=== PATIENT | male | born 1955 | race Caucasian/White ===

== ENCOUNTER 2017-05-21 13:45 | Inpatient (IN) ==
[2017-05-21 14:18] LABS: Basophils # 0.1 K/mcL (0.0-0.2); Basophils % 0.4 %; Eosinophils # 0.2 K/mcL (0.0-0.6); Eosinophils % 1.2 %; Hematocrit 51.3 % (37.5-50.1); Hemoglobin 17.1 g/dL (12.9-16.9); Immature Granulocytes % 0.7 % (0-4); Lymphocytes # 1.5 K/mcL (0.6-4.6); Lymphocytes % 10.8 %; Mean Corpuscular HGB Conc 33.3 g/dL (31.6-35.5); Mean Corpuscular Hemoglobin 29.9 pg (28.0-33.3); Mean Corpuscular Volume 89.7 fL (83.0-100.0); Mean Platelet Volume 10.1 fL (9.4-12.4); Monocytes # 0.9 K/mcL (0.0-1.3); Monocytes % 6.7 %; Platelet Count 302 K/mcL (140-400); Red Blood Count 5.72 M/mcL (4.19-5.50); Red Cell Distribution Width 12.5 % (11.5-14.5); Segmented Neutrophils % 80.2 %
[2017-05-21] MEDS ORDERED: 0.9 % Sodium Chloride 1,000 ML IVC ONE (14:26)
[2017-05-21] MEDS ORDERED: *HR* FentaNYL (PF) 100 MCG/2 ML VIAL IVP ONE ×2 (14:27→15:53)
--- NOTE | 2017-05-21 14:29 | Emergency Department Note ---
Disposition Clinical Impression: Colitis, New onset a-fib GI bleed Qualifiers: GI bleed type/associated pathology: unspecified gastrointestinal hemorrhage type Qualified Code(s): K92.2 - Gastrointestinal hemorrhage, unspecified Disposition: Admitted As Inpatient Condition: Good Time of Disposition: 17:29 General Adult HPI - General Chief complaint: ED GI Bleed Stated complaint: Rectal Bleeding, abd pain Time Seen by Provider: 05/21/17 14:00 Source: patient Mode of arrival: ambulatory Limitations: no limitations Nursing Notes Reviewed: Yes Vital Signs Reviewed: Yes - History of Present Illness HPI Narrative: 62-year-old male with significant past medical history of COPD presenting to the emergency Department chief complaint of blood per rectum. Patient states he had severe abdominal pain today. He went to try to use the restroom and linnea blood came from his rectum. He denies clots. He denies any leaking of blood. He states this has happened once before and was diagnosed with colitis. He is not sure if he had a colonoscopy then. Patient denies any chest pain, dizziness, shortness of breath or headache. Pain Scale: 10 - Related Data Home Medications Medication Instructions Recorded Confirmed Albuterol Sulfate [Ventolin Hfa] 2 puff IH Q4H PRN 07/10/16 05/21/17 Calcium Carbonate [Calcium] 600 mg PO DAILY 07/10/16 05/21/17 Carbidopa/Levodopa 1 tab PO HS 07/10/16 05/21/17 [Carbidopa-Levodopa 10-100 Tab] Cinnamon Bark [Cinnamon] 500 mg PO DAILY 07/10/16 05/21/17 Cyclobenzaprine HCl 5 mg PO TID PRN 07/10/16 05/21/17 DiphenhydraMINE [Benadryl] 25 mg PO Q8HR PRN 07/10/16 05/21/17 Fexofenadine HCl [Allergy Relief] 180 mg PO DAILY 07/10/16 05/21/17 Fluticasone Propionate Nasal 1 spr NS BID 07/10/16 05/21/17 [Flonase] Furosemide [Lasix] 20 mg PO DAILY 07/10/16 05/21/17 Garcinia Cambogia-Chromium 1 cap PO DAILY 07/10/16 05/21/17 Guaifenesin [Mucinex] 600 mg PO Q12H 07/10/16 05/21/17 Ipratropium/Albuterol Neb [Duoneb] 3 ml IH QID PRN 07/10/16 05/21/17 Lisinopril [Zestril] 40 mg PO DAILY 07/10/16 05/21/17 Omeprazole [PriLOSEC] 20 mg PO DAILY 07/10/16 05/21/17 Potassium Chloride [Klor-Con 10] 10 meq PO DAILY 07/10/16 05/21/17 Pravastatin Sodium [Pravachol] 40 mg PO HS 07/10/16 05/21/17 Theophylline Anhydrous [Theodur] 300 mg PO BID 07/10/16 05/21/17 Vitamin E (Dl,Tocopheryl Acet) 400 unit PO DAILY 07/10/16 05/21/17 [Vitamin E] traZODone [TraZODone] 50 - 100 mg PO HS PRN 07/10/16 05/21/17 Acetaminophen [Tylenol Arthritis] 1,300 mg PO Q8H PRN 05/21/17 05/21/17 Aspirin Enteric Coated [Aspirin EC] 81 mg PO DAILY 05/21/17 05/21/17 Fluticasone/Salmeterol [Advair 1 each IH BID 05/21/17 05/21/17 500-50 Diskus] Allergies Allergy/AdvReac Type Severity Reaction Status Date / Time Penicillins Allergy SWELLING Verified 07/10/16 07:23 All systems ED: reviewed and negative except as stated. Gastrointestinal: Reports: abdominal pain, hematochezia Past Medical History - Past Medical History Attestation: Yes The following information was validated with the patient. Medical history: Reports: asthma, COPD, coronary artery disease, diabetes, hypertension, other Surgical history: Reports: appendectomy, coronary bypass (CABG) Psychiatric history: Reports: no psych history - Social History Smoking Status: Never smoker Smokeless Tobacco Status: No Alcohol use: Reports: none Drug use: Reports: none Physical Exam - General Limitations: no limitations General appearance: alert, in no apparent distress - Head Head exam: atraumatic, normocephalic, normal inspection - Eye Eye exam: Present: normal appearance. Absent: scleral icterus, conjunctival injection - ENT ENT exam: normal exam, mucous membranes moist - Neck Neck exam: Present: normal inspection, full ROM. Absent: tenderness, meningismus - Chest Chest inspection: Present: normal inspection, symmetric chest wall rise. Absent : tenderness, rash - Respiratory Respiratory exam: Present: normal lung sounds bilaterally. Absent: respiratory distress, wheezes - Cardiovascular Cardiovascular exam: Present: normal rhythm, tachycardia, normal heart sounds - Abdominal Exam Abdominal exam: Present: tenderness, distention. Absent: guarding, rebound, rigidity Abdominal tenderness: Present: diffuse, moderate - Rectal Exam Wharf [employer] present during exam: Yes Rectal exam: Present: normal inspection, normal rectal tone, heme (+) stool - Extremities Exam Extremities exam: Present: normal inspection, full ROM - Neurological Exam Neurological exam: Present: alert, oriented X3 - Psychiatric Psychiatric exam: Present: normal affect, normal mood - Skin Skin exam: Present: warm, intact Course Course Narrative: 62-year-old male presenting to the emergency she complaint of blood per rectum. Patient is alert and oriented 3 in the room. Tachycardic but vital signs otherwise stable. Patient's physical exam shows mild distention of the abdomen. No surgical abdomen on exam. We will obtain type and screen, CBC, CMP , lipase along with CT of abdomen and pelvis. Disposition pending results. We will also perform bedside stool call. Patient agrees with this plan. - Reevaluation(s) Reevaluation #1: Patient's laboratory analysis shows elevated white blood cell count. Outside stool occult positive for blood. No linnea blood per rectum on examination. Patient's CT shows colitis. We will plan to admit the patient at this time for colitis and blood rectum. EKG completed showed atrial fibrillation. Patient has no history of atrial fibrillation. His rate is approximately 100 at this time. We will start diltiazem drip as well. Patient is alert and oriented 3 in the room. Tachycardic but otherwise vital signs stable. Patient agrees with this plan. I spoke with the hospitalist on-call Dr. Gill who agrees to accept the patient at this time. Vital Signs Temperature 97.8 F 05/21/17 13:49 Pulse Rate 105 05/21/17 13:49 Respiratory Rate 16 05/21/17 13:49 Blood Pressure 149/95 05/21/17 13:49 O2 Sat by Pulse Oximetry 97 05/21/17 13:49 Temperature 98.0 F 05/23/17 03:00 Pulse Rate 91 05/23/17 03:00 Respiratory Rate 16 05/23/17 03:00 Blood Pressure 120/75 05/23/17 03:00 O2 Sat by Pulse Oximetry 99 05/23/17 03:00 Oxygen Delivery Oxygen Delivery Room Air Medical Decision Making - Medical Records Medical records reviewed: Yes I reviewed the patient's medical records. - Lab Data Lab results reviewed: Yes I reviewed the patient's lab results. Result diagrams: 05/22/17 02:26 05/22/17 02:26 Lab Results 05/21/17 05/21/17 05/21/17 Range/Units 14:11 14:11 14:11 WBC 13.7 H (4.3-11.1) K/mcL RBC 5.72 H (4.19-5.50) M/mcL Hgb 17.1 H (12.9-16.9) g/dL Hct 51.3 H (37.5-50.1) % MCV 89.7 (83.0-100.0) fL MCH 29.9 (28.0-33.3) pg MCHC 33.3 (31.6-35.5) g/dL RDW 12.5 (11.5-14.5) % Plt Count 302 (140-400) K/mcL MPV 10.1 (9.4-12.4) fL Immature Gran % 0.7 (0-4) % Seg Neutrophils % 80.2 % Lymphocytes % 10.8 % Monocytes % 6.7 % Eosinophils % 1.2 % Basophils % 0.4 % Neutrophils # 11.0 H (1.6-8.9) K/mcL Lymphocytes # 1.5 (0.6-4.6) K/mcL Monocytes # 0.9 (0.0-1.3) K/mcL Eosinophils # 0.2 (0.0-0.6) K/mcL Basophils # 0.1 (0.0-0.2) K/mcL Sodium 135 L (136-145) mEq/L Potassium 4.4 (3.5-5.1) mEq/L Chloride 96 L (98-107) mEq/L Carbon Dioxide 26 (23-29) mEq/L BUN 16 (8-23) mg/dL Creatinine 0.90 (0.70-1.30) mg/dL Est GFR ( Amer) > 60 (> 60) Est GFR (Non-Af Amer) > 60 (> 60) BUN/Creatinine Ratio 18 (6-26) Glucose 421 H (70-105) mg/dL POC Glucose (58-89) Est Mean Plasma Glucose mg/dl Hemoglobin A1c ( - 5.6) % Calculated Osmolality 299 (280-300) Calcium 10.1 (8.6-10.3) mg/dL Troponin I < 0.03 (< 0.04) ng/mL Blood Type B POSITIVE Antibody Screen NEGATIVE 05/21/17 05/21/17 05/21/17 Range/Units 20:08 20:08 20:16 WBC (4.3-11.1) K/mcL RBC (4.19-5.50) M/mcL Hgb (12.9-16.9) g/dL Hct (37.5-50.1) % MCV (83.0-100.0) fL MCH (28.0-33.3) pg MCHC (31.6-35.5) g/dL RDW (11.5-14.5) % Plt Count (140-400) K/mcL MPV (9.4-12.4) fL Immature Gran % (0-4) % Seg Neutrophils % % Lymphocytes % % Monocytes % % Eosinophils % % Basophils % % Neutrophils # (1.6-8.9) K/mcL Lymphocytes # (0.6-4.6) K/mcL Monocytes # (0.0-1.3) K/mcL Eosinophils # (0.0-0.6) K/mcL Basophils # (0.0-0.2) K/mcL Sodium (136-145) mEq/L Potassium (3.5-5.1) mEq/L Chloride (98-107) mEq/L Carbon Dioxide (23-29) mEq/L BUN (8-23) mg/dL Creatinine (0.70-1.30) mg/dL Est GFR ( Amer) (> 60) Est GFR (Non-Af Amer) (> 60) BUN/Creatinine Ratio (6-26) Glucose (70-105) mg/dL POC Glucose 331 H (58-89) Est Mean Plasma Glucose 258 mg/dl Hemoglobin A1c 10.6 H ( - 5.6) % Calculated Osmolality (280-300) Calcium (8.6-10.3) mg/dL Troponin I < 0.03 (< 0.04) ng/mL Blood Type Antibody Screen 05/22/17 Range/Units 00:05 WBC (4.3-11.1) K/mcL RBC (4.19-5.50) M/mcL Hgb (12.9-16.9) g/dL Hct (37.5-50.1) % MCV (83.0-100.0) fL MCH (28.0-33.3) pg MCHC (31.6-35.5) g/dL RDW (11.5-14.5) % Plt Count (140-400) K/mcL MPV (9.4-12.4) fL Immature Gran % (0-4) % Seg Neutrophils % % Lymphocytes % % Monocytes % % Eosinophils % % Basophils % % Neutrophils # (1.6-8.9) K/mcL Lymphocytes # (0.6-4.6) K/mcL Monocytes # (0.0-1.3) K/mcL Eosinophils # (0.0-0.6) K/mcL Basophils # (0.0-0.2) K/mcL Sodium (136-145) mEq/L Potassium (3.5-5.1) mEq/L Chloride (98-107) mEq/L Carbon Dioxide (23-29) mEq/L BUN (8-23) mg/dL Creatinine (0.70-1.30) mg/dL Est GFR ( Amer) (> 60) Est GFR (Non-Af Amer) (> 60) BUN/Creatinine Ratio (6-26) Glucose (70-105) mg/dL POC Glucose 262 H (58-89) Est Mean Plasma Glucose mg/dl Hemoglobin A1c ( - 5.6) % Calculated Osmolality (280-300) Calcium (8.6-10.3) mg/dL Troponin I (< 0.04) ng/mL Blood Type Antibody Screen - Radiology Data Radiology results reviewed: Yes I reviewed the patient's radiology results. Abdomen/Pelvis CT 05/21/17 14:27 IMPRESSION: Probable nonspecific acute colitis on the left. Other incidental findings as above. D/ / Luis Lewis MD / Luis Lewis MD Interpreting Provider: Luis Lewis MD Echocardiogram 05/22/17 19:33 Impressions: LVEF 60-65%. Normal LV chamber size, wall thickness and function. Indeterminate diastolic function. Normal right ventricular structure and function. Severely dilated left atrium. No evidence of pulmonary hypertension. No significant valvular dysfunction. Left Ventricular Wall Motion: Rest Echo Findings All wall segments showed normal motion. Findings: Study Quality * Technically adequate exam. ECG Findings * Rhythm appeared to be atrial fibrillation. Left Ventricle * LVEF 60-65%. * Normal LV chamber size, wall thickness and function. * Indeterminate diastolic function. Right Ventricle * Normal right ventricular structure and function. Left Atrium * Severely dilated left atrium. Right Atrium * Moderate to severely dilated right atrium. Interatrial Septum * Interatrial septum not well evaluated. Aortic Valve * Aortic valve not well visualized. * No aortic stenosis. * No aortic regurgitation. Mitral Valve * Normal mitral valve structure and function. * No mitral regurgitation. * No mitral stenosis. Tricuspid Valve * Normal tricuspid valve structure and function. * Trace tricuspid regurgitation. * No evidence of pulmonary hypertension. Pulmonic Valve * Pulmonic valve is not well visualized. * No pulmonic regurgitation. Aorta * Normally sized aortic root. Pericardium * The pericardium appears normal. IVC * The IVC is not well evaluated. Pulmonary Artery * Normal visualized portions of the main pulmonary artery. - EKG Data EKG #1 EKG attestation: Yes I reviewed and interpreted this EKG. EKG results narrative: Atrial fibrillation. 110 bpm. QRS 107, QTC 416. No signs of acute ST segment elevation or ischemia. Compared to previous EKG completed on 07/11/2016 new onset A. fib EKG #2 EKG attestation: Yes I reviewed and interpreted this EKG. EKG results narrative: Atrial fibrillation. 100 bpm. Incomplete right bundle branch block. QRS 114, QTC 432. No signs of acute ST segment elevation or ischemia. Attestation Statement - Attestation Attestation: I examined this patient and my medical decision-making was reviewed with the Resident Physician, Dr. Mccracken. I agree with the documented findings, disposition and treatment plan as described except to the extent set forth below. Patient is a 62-year-old white male who presents to the emergency department with a two-day history of gradually worsening generalized lower abdominal pain and bright red blood per rectum. Patient states he has no prior history of GI bleeding, no condition that he sees GI regularly for but states that years ago he had an episode of colitis which caused some bright red blood per rectum at that time and has not had a recurrence since that time. Patient denies any fevers or chills, no nausea vomiting, does complain of some abdominal bloating and occasional loose stools. Patient's denies any chest pain pressure or heaviness, no palpitations, no shortness of breath, no syncope or near syncopal episodes. Patient denies any cardiac history or pulmonary history. Patient is in no acute distress on arrival. I agree with patient's physical exam findings as documented. Patient tachycardic but stable blood pressure on arrival. Patient was placed on cardiac care unit nurse and continuous pulse ox and IV saline well was established and IV fluids were initiated. Labs were drawn and sent including type and screen, EKG was obtained which showed atrial fibrillation with RVR with a heart rate in the 1 teens. Cardiac labs were added and we will continue to monitor closely with hydration. Patient received IV fluid boluses. Hemoccult was positive with no gross blood below. Patient's H&H is stable, BUN/ creatinine are stable. Remainder of labs are unremarkable. CT does show the presence of colitis likely causing the rectal bleeding. Patient's hemodynamically stable otherwise. Repeat EKG shows persistent atrial fibrillation. We held aspirin due to GI bleeding did start patient on Cardizem drip. Troponin is negative. Patient rate controlled on Cardizem and remains hemodynamically stable. Patient will be admitted for further evaluation and management of colitis as well as new onset A. fib. Case was discussed with the hospitalist who accepted patient for admission.
[2017-05-21 14:39] LABS: BUN/Creatinine Ratio 18 (6-26); Blood Urea Nitrogen 16 mg/dL (8-23); Calcium 10.1 mg/dL (8.6-10.3); Carbon Dioxide 26 mEq/L (23-29); Chloride 96 mEq/L (98-107); Glucose 421 mg/dL (70-105); Osmolality,Calculated 299 (280-300); Potassium 4.4 mEq/L (3.5-5.1); Sodium 135 mEq/L (136-145); eGFR For African Americans > 60 (> 60); eGFR For Non-African Americans > 60 (> 60)
[2017-05-21 15:03] LABS: Troponin I < 0.03 ng/mL (< 0.04)
[2017-05-21] MEDS ORDERED: Dicyclomine 20 MG/2 ML AMPUL IM ONE (17:10)
[2017-05-21] MEDS ORDERED: Acetaminophen 325 MG TABLET PO PRN (19:27)
[2017-05-21] MEDS ORDERED: Naloxone 0.4 MG/ML INJ IVP PRN (19:27)
[2017-05-21] MEDS ORDERED: D5% in Water 1,000 ML IVC PRN (19:32)
[2017-05-21] MEDS ORDERED: Dextrose Gel 15 GM/37.5 ML TUBE PO PRN ×2 (19:32)
[2017-05-21] MEDS ORDERED: *HR* Dextrose 50 % in Water (Syg) 50 ML SYRINGE IVP PRN (19:32)
[2017-05-21] MEDS ORDERED: traZODone 50 MG TABLET PO PRN (19:36)
[2017-05-21] MEDS ORDERED: Ipratropium/Albuterol Neb 3 ML IH PRN (19:36)
--- NOTE | 2017-05-21 19:40 | Internal Med History&Physical ---
Date of Encounter: 05/21/17 Time of Encounter: 19:00 Assessment and Plan (1) Colitis Current visit: Yes Status: Acute CT abdomen/pelvis shows nonspecific acute colitis on the left. Start IV antibiotics-ciprofloxacin and Flagyl. IV hydration. Supportive care with when necessary pain control with IV fentanyl and oral Percocet. When necessary antiemetics. Keep nothing by mouth for now. Requires outpatient colonoscopy. (2) GI bleed Current visit: Yes Status: Acute Probably related to colitis. No active bleeding at this time. Avoid anticoagulation.Monitor Hb closely; Qualifiers: GI bleed type/associated pathology: unspecified gastrointestinal hemorrhage type Qualified Code(s): K92.2 - Gastrointestinal hemorrhage, unspecified (3) New onset a-fib Current visit: Yes Status: Acute EKG shows atrial fibrillation with RVR; started on IV Cardizem drip, plan to wean off IV drip if HR<110; continue telemetry monitoring, serial troponins. Check transthoracic echocardiogram. Avoid anticoagulation for now due to GI bleed. Cardiology consult. (4) COPD (chronic obstructive pulmonary disease) Current visit: Yes Status: Chronic Not in acute exacerbation. Continue when necessary bronchodilators nebulization and supplemental oxygen as needed. Continue inhaled corticosteroids. Qualifiers: COPD type: unspecified COPD Qualified Code(s): J44.9 - Chronic obstructive pulmonary disease, unspecified (5) Obstructive sleep apnea Current visit: Yes Status: Chronic Continue nocturnal CPAP support. (6) Diabetes mellitus Current visit: Yes Status: Chronic Reports that he has borderline diabetes, not on medications at home. Noted to have hypoglycemia. Start Accu-Chek blood glucose monitoring with sliding scale insulin. Check hemoglobin A1c. Qualifiers: Diabetes mellitus type: type 2 Diabetes mellitus jail insulin use: without jail use Diabetes mellitus complication status: with hyperglycemia Qualified Code(s): E11.65 - Type 2 diabetes mellitus with hyperglycemia (7) Essential hypertension Current visit: Yes Status: Chronic Blood pressure noted to be slightly elevated. Resume home medications- lisinopril. Internal Medicine - H&P: HPI Chief complaint: Abdominal pain, rectal bleeding Admitted From: Emergency Dept Plans for Post Hospital Care: Home History of present illness: Mr. Lamb is a 62 year old male with history of COPD, diabetes, obstructive sleep apnea, who presents with complaints of rectal bleeding. Patient reports a new sudden onset of bright red bleeding per rectum associated with cramping abdominal pain since around 10 AM this morning. Abdominal pain is constant, no aggravating or relieving factors, nonradiating. Not associated with fever, chills, nausea, vomiting. He had 3-4 episodes of bright red bleeding per rectum , not associated with bowel movements. No history of hemorrhoids or colonoscopy in the past. He reports a similar episode of bleeding a few years ago, when he was diagnosed with colitis. Patient was noted to have new onset of atrial fibrillation while in the emergency room. Denies chest pain, palpitations, shortness of breath. Past Med Surg Social Fam HX - Past Medical History Medical history: asthma, COPD, diabetes, hypertension, other Psychiatric history: no psych history - Past Surgical History Surgical History: appendectomy, orthopedic, other (Right femoral fracture repair ) - Social History Smoking Status: Never smoker Smokeless Tobacco Status: No Alcohol use: none Drug use: none Current living situation: Home, With Family Activity Level: Independent ambulation Recent Out of Country Travel Within the Last 8 Weeks: No Exposure or Possible Exposure to Illness During Travel: No - Family History Father Living Status: Hx Family Neurologic Disorders: Yes (aneurysin) Internal Medicine - H&P: Meds Albuterol Sulfate [Ventolin Hfa] 2 puff IH Q4H PRN 07/10/16 [History] Calcium Carbonate [Calcium] 600 mg PO DAILY 07/10/16 [History] Carbidopa/Levodopa [Carbidopa-Levodopa 10-100 Tab] 1 tab PO HS 07/10/16 [History ] Cinnamon Bark [Cinnamon] 500 mg PO DAILY 07/10/16 [History] Cyclobenzaprine HCl 5 mg PO TID PRN 07/10/16 [History] DiphenhydraMINE [Benadryl] 25 mg PO Q8HR PRN 07/10/16 [History] Fexofenadine HCl [Allergy Relief] 180 mg PO DAILY 07/10/16 [History] Fluticasone Propionate Nasal [Flonase] 1 spr NS BID 07/10/16 [History] Furosemide [Lasix] 20 mg PO DAILY 07/10/16 [History] Garcinia Cambogia-Chromium 1 cap PO DAILY 07/10/16 [History] Guaifenesin [Mucinex] 600 mg PO Q12H 07/10/16 [History] Ipratropium/Albuterol Neb [Duoneb] 3 ml IH QID PRN 07/10/16 [History] Lisinopril [Zestril] 40 mg PO DAILY 07/10/16 [History] Omeprazole [PriLOSEC] 20 mg PO DAILY 07/10/16 [History] Potassium Chloride [Klor-Con 10] 10 meq PO DAILY 07/10/16 [History] Pravastatin Sodium [Pravachol] 40 mg PO HS 07/10/16 [History] Theophylline Anhydrous [Theodur] 300 mg PO BID 07/10/16 [History] Vitamin E (Dl,Tocopheryl Acet) [Vitamin E] 400 unit PO DAILY 07/10/16 [History] traZODone [TraZODone] 50 - 100 mg PO HS PRN 07/10/16 [History] Acetaminophen [Tylenol Arthritis] 1,300 mg PO Q8H PRN 05/21/17 [History] Aspirin Enteric Coated [Aspirin EC] 81 mg PO DAILY 05/21/17 [History] Fluticasone/Salmeterol [Advair 500-50 Diskus] 1 each IH BID 05/21/17 [History] 3 Allergy/AdvReac Type Severity Reaction Status Date / Time Penicillins Allergy SWELLING Verified 07/10/16 07:23 All Systems PM: A 10-system review of systems was performed and is negative for pertinent findings except as documented above in the HPI. - Constitutional Constitutional: no chills, no fever(s), no night sweats - EENT Eyes: no change in vision, no discharge, no pain, no photophobia Ears: no ear discharge, no ear pain, no tinnitus Nose, mouth and throat: no dysphagia, no nasal discharge, no neck pain, no sore throat - Cardiovascular Cardiovascular ROS IM: no chest pain, no diaphoresis, no dyspnea, no lightheadedness, no palpitations, no syncope - Respiratory Respiratory: no cough, no dyspnea, no wheezing, no excessive phlegm production - Gastrointestinal Gastrointestinal: abdominal pain, hematochezia - Musculoskeletal Musculoskeletal ROS IM: no numbness, no tingling - Integumentary Integumentary IM: no rash, no unusual bruising - Neurological Neurological ROS: no confusion, no convulsions, no focal weakness, no numbness, no tingling, no tremor(s) - Hematologic/Lymphatic Hematologic/Lymphatic: no easy bruising - Constitutional Vitals: Temp Pulse Resp BP Pulse Ox 97.9 F 104 18 163/91 95 05/21/17 19:16 05/21/17 19:16 05/21/17 19:16 05/21/17 19:16 05/21/17 19:16 General appearance: Present: mild distress (Due to abdominal pain), A&O X 3, morbidly obese, answers questions appropriately - Respiratory Respiratory exam: Present: CTAB (Coarse breath sounds bilaterally), wheezes ( Intermittent end expiratory wheezing). Absent: accessory muscle use, rales, rhonchi - GI/Abdominal GI/Abdominal exam: Present: normal bowel sounds, soft (Obese, diffuse tenderness to deep palpation, more pronounced in left and right lower quadrants) , no peritoneal signs. Absent: distended, tenderness - Extremities Exam Extremities exam: Present: full ROM, pedal edema (Trace dependent), warm, radial pulses palpable and symmetrical. Absent: calf tenderness, cyanotic - Neurological Exam Neurological exam: Present: CN II-XII intact, oriented X3, no focal deficits. Absent: pronater drift, facial droop, speech deficit - Skin Skin exam: Present: dry, intact Internal Med - H&P Results - Labs CBC & Chem 7: 05/21/17 14:11 05/21/17 14:11
[2017-05-21] MEDS ORDERED: 0.9 % Sodium Chloride 1,000 ML IVC SCH (19:45)
[2017-05-21] MEDS: *HR* HYDROcodone/Acet 5/325 mg TABLET PO PRN (19:56)
[2017-05-21] MEDS: Budesonide/Formoterol 160/4.5 MDI IH SCH (20:19)
[2017-05-21] MEDS: Insulin LISPRO 300 UNITS/3 ML VIAL SQ SCH (21:58)
[2017-05-22] MEDS ORDERED: Insulin LISPRO 300 UNITS/3 ML VIAL SQ SCH
[2017-05-22] MEDS: MetroNIDAZOLE 500 MG/100 ML 500 MG/100 ML BAG IVPB SCH ×4 (00:39→23:52)
[2017-05-22] MEDS ORDERED: Acetaminophen IV 1,000 MG/100 ML INFUS..BTL IVPB ONE (00:57)
[2017-05-22] MEDS: *HR* HYDROcodone/Acet 5/325 mg TABLET PO PRN ×2 (01:51→08:10)
[2017-05-22] MEDS ORDERED: *HR* OxyCODONE Immed Rel 5 MG TABLET PO ONE (02:39)
[2017-05-22 03:39] LABS: Basophils # 0.1 K/mcL (0.0-0.2); Basophils % 0.5 %; Eosinophils # 0.2 K/mcL (0.0-0.6); Eosinophils % 1.3 %; Hematocrit 45.8 % (37.5-50.1); Hemoglobin 15.6 g/dL (12.9-16.9); Immature Granulocytes % 0.5 % (0-4); Immature Platelets 3.9 % (1.1-6.1); Lymphocytes # 1.4 K/mcL (0.6-4.6); Lymphocytes % 9.2 %; Mean Corpuscular HGB Conc 34.1 g/dL (31.6-35.5); Mean Corpuscular Hemoglobin 29.8 pg (28.0-33.3); Mean Corpuscular Volume 87.4 fL (83.0-100.0); Mean Platelet Volume 10.2 fL (9.4-12.4); Monocytes # 1.6 K/mcL (0.0-1.3); Monocytes % 10.3 %; Neutrophils # 11.8 K/mcL (1.6-8.9); Platelet Count 288 K/mcL (140-400); Red Blood Count 5.24 M/mcL (4.19-5.50); Red Cell Distribution Width 12.8 % (11.5-14.5); Segmented Neutrophils % 78.2 %
[2017-05-22 03:47] LABS: BUN/Creatinine Ratio 18 (6-26); Blood Urea Nitrogen 12 mg/dL (8-23); Calcium 9.4 mg/dL (8.6-10.3); Carbon Dioxide 25 mEq/L (23-29); Chloride 101 mEq/L (98-107); Glucose 226 mg/dL (70-105); Magnesium 1.7 mg/dL (1.6-2.6); Osmolality,Calculated 289 (280-300); Potassium 3.5 mEq/L (3.5-5.1); Sodium 136 mEq/L (136-145); eGFR For African Americans > 60 (> 60); eGFR For Non-African Americans > 60 (> 60)
[2017-05-22] MEDS: Insulin LISPRO 300 UNITS/3 ML VIAL SQ SCH ×3 (05:34→17:57)
[2017-05-22] MEDS: Loratadine 10 MG TABLET PO SCH (08:09)
[2017-05-22] MEDS: Lisinopril 20 MG TABLET PO SCH (08:10)
[2017-05-22] MEDS: Budesonide/Formoterol 160/4.5 MDI IH SCH ×2 (08:10→20:36)
--- NOTE | 2017-05-22 09:48 | Cardiology Consult Note ---
<Melissa Pandey - Last Filed: 05/22/17 11:31> Date of Encounter: 05/22/17 Time of Encounter: 09:15 Assessment and Plan (1) New onset a-fib Current Visit: Yes Status: Acute New A.fib. No other cardiac history. He reported a normal stress test 20yr ago. EKG: A.fib, HR 106 troponin 0.03, 0.03, 0.03, 0.04 Denies chest pain. -Echo pending, continue cardizem IV, order BNP, no anticoagulation at this time (2) Colitis Current Visit: Yes Status: Acute Currently being treated for acute left sided colitis with Cipro and flagyl. 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 All questions were answered. Thank you for involving us in the care of your patient. Please call with any questions. History of Present Illness Consult date: 05/22/17 Requesting physician: Stacy Gill Consult reason: new A.fib with RVR Chief complaint: abdominal pain, rectal bleeding History of present illness: Mr. Lamb is a 62 year old male with PMH COPD, diabetes, obstructive sleep apnea, HTN, HLD who presented to [facility] complaining of abdominal cramping and blood per rectum for 1 day. He had 3-4 episodes of blood in rectum. Nothing aggravates or alleviates the abdominal pain. He had this one other time and was told he had colitis. He had a normal stress test 20yr ago. In ED abdominal CT demonstrated left sided acute colitis. He was also found to be in A.fib. He was started on IV antibiotics and cardizem. He denied fever, chills, chest pain, palpitations, shortness of breathe. He admitted abdominal pain, orthopnea, PND, lower extremity swelling. Past Med Surg Social Fam HX - Past Medical History Medical history: asthma, COPD, diabetes, hypertension, other Psychiatric history: no psych history - Past Surgical History Surgical History: appendectomy, orthopedic, other (Right femoral fracture repair ) - Social History Smoking Status: Never smoker Smokeless Tobacco Status: No Alcohol use: none Drug use: none - Family History Father Living Status: Hx Family Neurologic Disorders: Yes (aneurysin) Medications and Allergies Albuterol Sulfate [Ventolin Hfa] 2 puff IH Q4H PRN 07/10/16 [History] Calcium Carbonate [Calcium] 600 mg PO DAILY 07/10/16 [History] Carbidopa/Levodopa [Carbidopa-Levodopa 10-100 Tab] 1 tab PO HS 07/10/16 [History ] Cinnamon Bark [Cinnamon] 500 mg PO DAILY 07/10/16 [History] Cyclobenzaprine HCl 5 mg PO TID PRN 07/10/16 [History] DiphenhydraMINE [Benadryl] 25 mg PO Q8HR PRN 07/10/16 [History] Fexofenadine HCl [Allergy Relief] 180 mg PO DAILY 07/10/16 [History] Fluticasone Propionate Nasal [Flonase] 1 spr NS BID 07/10/16 [History] Furosemide [Lasix] 20 mg PO DAILY 07/10/16 [History] Garcinia Cambogia-Chromium 1 cap PO DAILY 07/10/16 [History] Guaifenesin [Mucinex] 600 mg PO Q12H 07/10/16 [History] Ipratropium/Albuterol Neb [Duoneb] 3 ml IH QID PRN 07/10/16 [History] Lisinopril [Zestril] 40 mg PO DAILY 07/10/16 [History] Omeprazole [PriLOSEC] 20 mg PO DAILY 07/10/16 [History] Potassium Chloride [Klor-Con 10] 10 meq PO DAILY 07/10/16 [History] Pravastatin Sodium [Pravachol] 40 mg PO HS 07/10/16 [History] Theophylline Anhydrous [Theodur] 300 mg PO BID 07/10/16 [History] Vitamin E (Dl,Tocopheryl Acet) [Vitamin E] 400 unit PO DAILY 07/10/16 [History] traZODone [TraZODone] 50 - 100 mg PO HS PRN 07/10/16 [History] Acetaminophen [Tylenol Arthritis] 1,300 mg PO Q8H PRN 05/21/17 [History] Aspirin Enteric Coated [Aspirin EC] 81 mg PO DAILY 05/21/17 [History] Fluticasone/Salmeterol [Advair 500-50 Diskus] 1 each IH BID 05/21/17 [History] 3 Allergy/AdvReac Type Severity Reaction Status Date / Time Penicillins Allergy SWELLING Verified 07/10/16 07:23 All Systems Review: The remainder of the systems were reviewed and are negative - Constitutional Constitutional: no chills, no fever(s) - EENT Eyes: no blurred vision, no loss of vision - Cardiovascular Cardiovascular: dyspnea on exertion, leg edema, orthopnea, paroxysmal nocturnal dyspnea, no chest pain at rest, no chest pain with exertion, no palpitations, no syncope - Respiratory Respiratory: no cough, no dyspnea - Gastrointestinal Gastrointestinal: abdominal pain, hematochezia, no diarrhea, no nausea - Musculoskeletal Musculoskeletal: no abnormal gait - Integumentary Integumentary: no erythema - Neurological Neurological: no loss of vision, no syncope Physical Examination Vital Signs, Last 4 Hours Temp Pulse Resp BP Pulse Ox 05/22/17 08:21 98 05/22/17 08:11 16 144/80 98 05/22/17 06:42 98.4 F 100 16 144/80 98 General: Conversant, No Apparent Distress HEENT: Atraumatic, Mucus Membranes Moist Neck: No JVD Cardiac: No Murmur, Other (irregular ) Lungs: Normal Breath Sounds, No Wheeze, Rales, Rhonchi Neuro: Alert and responsive Abdomen: Soft, Non-Tender Musculoskeletal: No Chest Wall Tenderness Extremities: No Cyanosis, Other (edema) Results 05/22/17 02:26 05/22/17 02:26 Lab Results 05/22/17 05/22/17 05/22/17 02:26 02:26 02:26 WBC 15.1 H Hgb 15.6 D Hct 45.8 Plt Count 288 Sodium 136 Potassium 3.5 Chloride 101 Carbon Dioxide 25 BUN 12 Creatinine 0.65 L Glucose 226 H Calcium 9.4 Magnesium 1.7 Troponin I 0.03 05/22/17 08:46 WBC Hgb Hct Plt Count Sodium Potassium Chloride Carbon Dioxide BUN Creatinine Glucose Calcium Magnesium Troponin I 0.04 H* Consult Discharge Plan - Plan Referrals: Lula Miranda MD [Primary Care Provider] - <Ángela Calderón - Last Filed: 05/22/17 12:23> Date of Encounter: 05/22/17 - Attending Attestation I examined this patient and my medical decision-making was reviewed with the Resident Physician. I agree with the documented findings, disposition and treatment plan as described except to the extent set forth below. 62 YOM with hx of DM, HTN, HLP who presents with GI bleed and abdominal pain found to have Afib. Currently not a candidate for AC but should start when safe to reduce his risk of CVA. ECHO and NST are reasonable during this admission for SHD and to rule out ischemia. EKG borderline ST changes suggestive of ischemia along with trivial elevation in trops. IV heparin, ASA 81 mg daily when deemed safe by GI Assessment and Plan Discussion w patient/family: The assessment and plan as outlined above was discussed with the patient and/or family members who expressed understanding and agreement. All questions were answered. Thank you for involving us in the care of your patient. Please call with any questions. History of Present Illness History of present illness: Mr. Lamb is a 62 year old male All Systems Review: The remainder of the systems were reviewed and are negative Physical Examination Vital Signs, Last 4 Hours Temp Pulse Resp BP Pulse Ox 05/22/17 11:49 97.5 F L 67 16 121/80 98 05/22/17 08:21 98 Results 05/22/17 02:26 05/22/17 02:26 Lab Results 05/22/17 05/22/17 05/22/17 02:26 02:26 02:26 WBC 15.1 H Hgb 15.6 D Hct 45.8 Plt Count 288 Sodium 136 Potassium 3.5 Chloride 101 Carbon Dioxide 25 BUN 12 Creatinine 0.65 L Glucose 226 H Calcium 9.4 Magnesium 1.7 Troponin I 0.03 05/22/17 08:46 WBC Hgb Hct Plt Count Sodium Potassium Chloride Carbon Dioxide BUN Creatinine Glucose Calcium Magnesium Troponin I 0.04 H*
[2017-05-22 10:15] LABS: Estimated Average Glucose 258 mg/dl; Hemoglobin A1C 10.6 %
[2017-05-22] MEDS ORDERED: Ketorolac 30 MG/ML VIAL IVP SCH (12:00)
--- NOTE | 2017-05-22 13:23 | Event Note ---
Date of Encounter: 05/22/17 Time of Encounter: 13:20 - Cardiology Event Note Echo pending. Labs pending. HR currently in the 90's. Remains on IV Cardizem gtt. SBP stable. Will attempt to wean IV Cardizem gtt and will start short- acting Cardizem 30mg PO every 6 hrs.
[2017-05-22] MEDS: Ketorolac 30 MG/ML VIAL IVP PRN (17:50)
--- NOTE | 2017-05-22 18:14 | Internal Med Progress Note ---
Date of Encounter: 05/22/17 Time of Encounter: 11:00 - Assessment and plan (1) Colitis Current Visit: Yes Status: Acute Assessment and plan: Patient with continued abdominal discomfort with leukocytosis Abdominal CT shows nonspecific acute left colitis Continue IV Cipro/Flagyl (2) GI bleed Current Visit: Yes Status: Acute Assessment and plan: Hemoglobin stable; continue to monitor Qualifiers: GI bleed type/associated pathology: unspecified gastrointestinal hemorrhage type Qualified Code(s): K92.2 - Gastrointestinal hemorrhage, unspecified (3) New onset a-fib Current Visit: Yes Status: Acute Assessment and plan: -Cardiology following with recommendations to wean Cardizem -Echocardiogram with LVEF of 6065% with normal LV function. 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 Diabetes mellitus complication status: with hyperglycemia Qualified Code(s): E11.65 - Type 2 diabetes mellitus with hyperglycemia (6) Essential hypertension Current Visit: Yes Status: Chronic Assessment and plan: Controlled; continue home medications - Subjective Interval history: Patient continues to have abdominal pain Patient also with atrial fibrillation with RVR - Constitutional Vitals: Temp Pulse Resp BP Pulse Ox 99.1 F 88 18 105/64 96 05/22/17 15:48 05/22/17 15:48 05/22/17 15:48 05/22/17 15:48 05/22/17 15:48 General appearance: Present: mild distress (Due to abdominal pain), A&O X 3, morbidly obese, no acute distress, answers questions appropriately - Cardiovascular Cardiovascular exam: Present: irregular rhythm, +S1, +S2. Absent: diastolic murmur, gallop, rubs, systolic murmur - GI/Abdominal GI/Abdominal exam: Present: tenderness Internal Medicine: Result - Labs CBC & Chem 7: 05/22/17 02:26 05/22/17 02:26 Labs: Short CBC 05/22/17 Range/Units 02:26 WBC 15.1 H (4.3-11.1) K/mcL Hgb 15.6 D (12.9-16.9) g/dL Hct 45.8 (37.5-50.1) % Plt Count 288 (140-400) K/mcL Neutrophils # 11.8 H (1.6-8.9) K/mcL BMP 05/22/17 02:26 Sodium 136 Potassium 3.5 Chloride 101 Carbon Dioxide 25 BUN 12 Creatinine 0.65 L Glucose 226 H Calcium 9.4 Cardiac Enzymes 05/22/17 05/22/17 Range/Units 02:26 08:46 Troponin I 0.03 0.04 H* (< 0.04) ng/mL - Impressions Impressions Echocardiogram 05/22/17 19:33 Impressions: LVEF 60-65%. Normal LV chamber size, wall thickness and function. Indeterminate diastolic function. Normal right ventricular structure and function. Severely dilated left atrium. No evidence of pulmonary hypertension. No significant valvular dysfunction. Left Ventricular Wall Motion: Rest Echo Findings All wall segments showed normal motion. Findings: Study Quality * Technically adequate exam. ECG Findings * Rhythm appeared to be atrial fibrillation. Left Ventricle * LVEF 60-65%. * Normal LV chamber size, wall thickness and function. * Indeterminate diastolic function. Right Ventricle * Normal right ventricular structure and function. Left Atrium * Severely dilated left atrium. Right Atrium * Moderate to severely dilated right atrium. Interatrial Septum * Interatrial septum not well evaluated. Aortic Valve * Aortic valve not well visualized. * No aortic stenosis. * No aortic regurgitation. Mitral Valve * Normal mitral valve structure and function. * No mitral regurgitation. * No mitral stenosis. Tricuspid Valve * Normal tricuspid valve structure and function. * Trace tricuspid regurgitation. * No evidence of pulmonary hypertension. Pulmonic Valve * Pulmonic valve is not well visualized. * No pulmonic regurgitation. Aorta * Normally sized aortic root. Pericardium * The pericardium appears normal. IVC * The IVC is not well evaluated. Pulmonary Artery * Normal visualized portions of the main pulmonary artery. - VTE Documentation of Mechanical Device: Intermittent pneumatic compression device Consult Discharge Plan - Plan Referrals: Lula Miranda MD [Primary Care Provider] - 06/02/17 3:00 pm
[2017-05-23] MEDS: Insulin LISPRO 300 UNITS/3 ML VIAL SQ SCH ×5 (01:05→23:49)
[2017-05-23] MEDS: Ketorolac 30 MG/ML VIAL IVP PRN ×2 (05:39→21:47)
[2017-05-23] MEDS: Budesonide/Formoterol 160/4.5 MDI IH SCH ×2 (07:25→19:47)
[2017-05-23] MEDS: Lisinopril 20 MG TABLET PO SCH (08:50)
[2017-05-23] MEDS: Loratadine 10 MG TABLET PO SCH (08:51)
[2017-05-23] MEDS: MetroNIDAZOLE 500 MG/100 ML 500 MG/100 ML BAG IVPB SCH ×3 (08:51→23:48)
--- NOTE | 2017-05-23 08:58 | Cardiology Progress Note ---
Date of Encounter: 05/23/17 Time of Encounter: 08:55 Assessment and Plan (1) Colitis Current Visit: Yes Status: Acute Per Cardiology: CT: IMPRESSION: Probable nonspecific acute colitis on the left. Currently being treated for acute left sided colitis with Cipro and flagyl. (2) New onset a-fib Current Visit: Yes Status: Acute Per Cardiology: Apparent new onset atrial fibrillation. He reported a normal stress test 20yr ago. IV Cardizem drip now off and on Cardizem 30 mg by mouth every 6 hours with current heart rates in the 70s to 80s, atrial fibrillation. Systolic blood pressures in the 100s. We will switch to long-acting Cardizem CD 120 mg by mouth daily, we will decrease lisinopril from 40 mg by mouth daily down to 20 mg by mouth daily to allow for systolic blood pressure room. Continue with rate control strategy for now due to inability to be anticoagulated. Clinically stable. Echo showed: Impressions: LVEF 60-65%. Normal LV chamber size, wall thickness and function. Indeterminate diastolic function. Normal right ventricular structure and function. Severely dilated left atrium. No evidence of pulmonary hypertension. No significant valvular dysfunction. Left Ventricular Wall Motion: Rest Echo Findings All wall segments showed normal motion. Regarding long-term anticoagulation, [id number] = 2. Currently not on anticoagulation due to admission for rectal bleeding. Recommend GI consult. Hemoglobin stable. Patient reports was on aspirin at home. Patient aware of increased stroke risk while not anticoagulated. Recommend starting anticoagulation if able once seen by GI. (3) Elevated troponin I measurement Current Visit: Yes Status: Acute Per Cardiology: Negative troponins 3 and subsequent troponin mildly elevated at 0.04. Chest pain-free. Elevation in setting of A. fib, GI bleed, colitis. Suspect demand ischemia. No cardiac rehabilitation warranted at this time. BNP stable, has elevated A1c. Will discuss with Dr. Calderón potential stress testing during inpatient stay versus outpatient setting. Discussion w patient/family: The assessment and plan as outlined above was discussed with the patient who expressed understanding and agreement. All questions were answered. Thank you for involving us in the care of your patient. Please call with any questions. Subjective Principal diagnosis: afib Interval history: Patient denies any current bleeding or blood loss. Denies any current abdominal pain. He denies any chest pain. Reports mild shortness of breath at rest about baseline. Denies any new concerns or complaints. Objective Vital Signs, Last 4 Hours Temp Pulse Resp BP Pulse Ox 05/23/17 07:38 98.6 F 66 16 104/70 97 05/23/17 07:25 16 104/70 97 General: Conversant, No Apparent Distress HEENT: Atraumatic, Normocephaly, Mucus Membranes Moist Neck: No JVD, Normal carotid pulses Cardiac: No Murmur, Other (Irregularly irregular) Lungs: Normal Breath Sounds, No Wheeze, Rales, Rhonchi Neuro: Alert and responsive, No focal deficits noted Abdomen: Soft, Non-Tender, Other (obese) Skin: No rashes noted on visualized skin Musculoskeletal: No Chest Wall Tenderness Extremities: No Clubbing, No Cyanosis, No Edema, Normal Pulses Results 05/22/17 02:26 05/22/17 02:26 Lab Results Laboratory Tests 05/21/17 05/21/17 05/21/17 14:11 20:08 20:08 Hemoglobin A1c 10.6 H Troponin I < 0.03 < 0.03 B-Natriuretic Peptide 05/22/17 05/22/17 05/22/17 02:26 08:46 12:01 Hemoglobin A1c Troponin I 0.03 0.04 H* B-Natriuretic Peptide 36 ITS Impressions Abdomen/Pelvis CT 05/21/17 14:27 IMPRESSION: Probable nonspecific acute colitis on the left. Other incidental findings as above. D/ / Luis Lewis MD / Luis Lewis MD Interpreting Provider: Luis Lewis MD Echocardiogram 05/22/17 19:33 Impressions: LVEF 60-65%. Normal LV chamber size, wall thickness and function. Indeterminate diastolic function. Normal right ventricular structure and function. Severely dilated left atrium. No evidence of pulmonary hypertension. No significant valvular dysfunction. Left Ventricular Wall Motion: Rest Echo Findings All wall segments showed normal motion. Findings: Study Quality * Technically adequate exam. ECG Findings * Rhythm appeared to be atrial fibrillation. Left Ventricle * LVEF 60-65%. * Normal LV chamber size, wall thickness and function. * Indeterminate diastolic function. Right Ventricle * Normal right ventricular structure and function. Left Atrium * Severely dilated left atrium. Right Atrium * Moderate to severely dilated right atrium. Interatrial Septum * Interatrial septum not well evaluated. Aortic Valve * Aortic valve not well visualized. * No aortic stenosis. * No aortic regurgitation. Mitral Valve * Normal mitral valve structure and function. * No mitral regurgitation. * No mitral stenosis. Tricuspid Valve * Normal tricuspid valve structure and function. * Trace tricuspid regurgitation. * No evidence of pulmonary hypertension. Pulmonic Valve * Pulmonic valve is not well visualized. * No pulmonic regurgitation. Aorta * Normally sized aortic root. Pericardium * The pericardium appears normal. IVC * The IVC is not well evaluated. Pulmonary Artery * Normal visualized portions of the main pulmonary artery. Active Medications Acetaminophen (Tylenol) 650 mg PO Q6HR PRN PRN Reason: Mild Pain/Fever Stop: 11/20/17 19:28 Hydrocodone Bitart/Acetaminophen ([place] 5-325 Mg) 1 tab PO Q6HR PRN PRN Reason: Moderate Pain Stop: 11/20/17 19:28 Last Admin: 05/22/17 08:10 Dose: 1 tab Albuterol/Ipratropium (Duoneb) 3 ml IH QID PRN PRN Reason: Shortness Of Breath Stop: 11/20/17 19:37 Atorvastatin Calcium (Lipitor) 10 mg PO HS AMMY Stop: 11/20/17 21:01 Last Admin: 05/22/17 21:14 Dose: 10 mg Budesonide/Formoterol Fumarate (Symbicort) 2 puff IH BIDR AMMY Stop: 11/20/17 22:01 Last Admin: 05/23/17 07:25 Dose: 2 puff Calcium Carbonate (Tums) 500 mg PO DAILY AMMY Stop: 11/21/17 09:01 Last Admin: 05/23/17 08:50 Dose: 500 mg Carbidopa/Levodopa (Sinemet) 1 each PO HS AMMY Stop: 11/20/17 21:01 Last Admin: 05/22/17 21:14 Dose: 1 each Cyclobenzaprine HCl (Flexeril) 5 mg PO TID PRN PRN Reason: Muscle Spasm Dextrose/Water (Dextrose 50% (Syg)) 25 ml IVP AD PRN PRN Reason: Hypoglycemia Stop: 11/20/17 19:33 Diltiazem HCl (Cardizem) 30 mg PO Q6HR AMMY Stop: 11/21/17 13:31 Last Admin: 05/23/17 05:39 Dose: 30 mg Glucagon (Glucagen) 1 mg IM ONCE PRN PRN Reason: Hypoglycemia Stop: 11/20/17 19:33 Glucose (Gluctose) 15 gm PO ONCE PRN PRN Reason: Hypoglycemia Stop: 11/20/17 19:33 Glucose (Gluctose) 30 gm PO ONCE PRN PRN Reason: Hypoglycemia Stop: 11/20/17 19:33 Diltiazem HCl 125 mg/ Sodium (Chloride) 125 mls @ 5 mls/hr IVC .Q24H AMMY; 5 MG/ HR PRN Reason: Protocol Stop: 11/20/17 16:46 Last Admin: 05/22/17 10:20 Dose: 12.5 mg/hr, 12.5 mls/hr Ciprofloxacin Lactate (Cipro Premix 400 Mg/200 Ml) 400 mg in 200 mls @ 200 mls/ hr IVPB Q12HR [facility] Stop: 11/21/17 06:01 Last Admin: 05/23/17 05:40 Dose: 200 mls/hr Dextrose (Dextrose 5%) 1,000 mls @ 100 mls/hr IVC .Q10H PRN PRN Reason: HYPOGLYCEMIA Stop: 11/20/17 19:33 Metronidazole (Flagyl Premix 500 Mg/100 Ml) 500 mg in 100 mls @ 100 mls/hr IVPB Q8HR [facility] Stop: 11/21/17 00:01 Last Admin: 05/23/17 08:51 Dose: 100 mls/hr Insulin Human Lispro (Humalog) 0 units SQ Q6HR AMMY PRN Reason: Protocol Stop: 11/21/17 00:01 Last Admin: 05/23/17 05:39 Dose: 4 units Ketorolac Tromethamine (Toradol) 30 mg IVP Q6HR PRN PRN Reason: Moderate Pain Stop: 05/27/17 12:01 Last Admin: 05/23/17 05:39 Dose: 30 mg Lisinopril (Zestril) 40 mg PO DAILY AMMY PRN Reason: Protocol Stop: 11/21/17 09:01 Last Admin: 05/23/17 08:50 Dose: 40 mg Loratadine (Claritin) 10 mg PO DAILY [facility] Stop: 11/21/17 09:01 Last Admin: 05/23/17 08:51 Dose: 10 mg Naloxone HCl (Narcan) 0.4 mg IVP Q2MIN PRN PRN Reason: SEE COMMENTS Stop: 11/20/17 19:28 Omeprazole (Prilosec) 20 mg PO DAILY@0730 AMMY PRN Reason: Protocol Stop: 11/21/17 07:31 Last Admin: 05/23/17 05:39 Dose: 20 mg Theophylline (Theodur) 300 mg PO BID AMMY PRN Reason: Protocol Stop: 11/20/17 21:01 Last Admin: 05/23/17 08:50 Dose: 300 mg Trazodone HCl (Trazodone) 50 mg PO HS PRN PRN Reason: Sleep Stop: 11/20/17 19:37 Last Admin: 05/21/17 21:54 Dose: 50 mg - Imaging and Cardiology Echo: report reviewed - EKG Interpretation EKG results cardiology: other (Telemetry reviewed with average heart rate the past 12 hours 82, age atrial fibrillation, currently A. fib in the 70s to 80s) - VTE Documentation of Mechanical Device: Intermittent pneumatic compression device Consult Discharge Plan - Plan Referrals: Lula Miranda MD [Primary Care Provider] - 06/02/17 3:00 pm
[2017-05-23 09:50] LABS: Basophils # 0.1 K/mcL (0.0-0.2); Basophils % 0.4 %; Eosinophils # 0.9 K/mcL (0.0-0.6); Immature Granulocytes % 0.4 % (0-4); Lymphocytes # 2.4 K/mcL (0.6-4.6); Lymphocytes % 18.1 %; Mean Corpuscular Volume 90.7 fL (83.0-100.0); Monocytes # 1.5 K/mcL (0.0-1.3); Monocytes % 11.3 %; Neutrophils # 8.2 K/mcL (1.6-8.9); Platelet Count 240 K/mcL (140-400); Red Blood Count 4.74 M/mcL (4.19-5.50); Red Cell Distribution Width 12.8 % (11.5-14.5); Segmented Neutrophils % 62.8 %
[2017-05-23 09:51] LABS: Hemoglobin 14.2 g/dL (12.9-16.9)
[2017-05-23 10:05] LABS: BUN/Creatinine Ratio 22 (6-26); Blood Urea Nitrogen 17 mg/dL (8-23); Calcium 8.5 mg/dL (8.6-10.3); Carbon Dioxide 28 mEq/L (23-29); Chloride 104 mEq/L (98-107); Glucose 207 mg/dL (70-105); Osmolality,Calculated 290 (280-300); Potassium 3.6 mEq/L (3.5-5.1); Sodium 136 mEq/L (136-145); eGFR For African Americans > 60 (> 60); eGFR For Non-African Americans > 60 (> 60)
[2017-05-23] MEDS: Diltiazem CD (24hr) 120 MG CAPSULE PO SCH (10:51)
[2017-05-23] MEDS: *HR* HYDROcodone/Acet 5/325 mg TABLET PO PRN ×2 (12:48→17:49)
--- NOTE | 2017-05-23 18:25 | Internal Med Progress Note ---
Date of Encounter: 05/23/17 Time of Encounter: 11:00 - Assessment and plan (1) Colitis Current Visit: Yes Status: Acute Assessment and plan: Patient with improvement of abdominal discomfort and improved leukocytosis Abdominal CT shows nonspecific acute left colitis Patient notes that bloody stools has greatly diminished Suspect secondary to colitis and GI we will not perform colonoscopy during inpatient stay due to needing inflammation of colitis to resolve Continue IV Cipro/Flagyl Diet today advanced as tolerates (2) GI bleed Current Visit: Yes Status: Acute Assessment and plan: Hemoglobin stable; continue to monitor Patient will follow-up with GI as an outpatient for colonoscopy after inflammation of colitis has resolved Qualifiers: GI bleed type/associated pathology: unspecified gastrointestinal hemorrhage type Qualified Code(s): K92.2 - Gastrointestinal hemorrhage, unspecified (3) New onset a-fib Current Visit: Yes Status: Acute Assessment and plan: -Patient now rate controlled on oral Cardizem. -Echocardiogram with LVEF of 60-65% with normal LV function. No evidence of pulmonary hypertension or valvular dysfunction -Cardiology following and appreciate recommendations (4) COPD (chronic obstructive pulmonary disease) Current Visit: Yes Status: Chronic Assessment and plan: Stable; continue home medications Qualifiers: COPD type: unspecified COPD Qualified Code(s): J44.9 - Chronic obstructive pulmonary disease, unspecified (5) Diabetes mellitus Current Visit: Yes Status: Chronic Assessment and plan: Continue sliding scale insulin Qualifiers: Diabetes mellitus type: type 2 Diabetes mellitus industrial paramedic insulin use: without assisted use Diabetes mellitus complication status: with hyperglycemia Qualified Code(s): E11.65 - Type 2 diabetes mellitus with hyperglycemia (6) Essential hypertension Current Visit: Yes Status: Chronic Assessment and plan: Controlled; continue home medications - Subjective Interval history: Patient improvement in abdominal pain Patient also with atrial fibrillation with RVR now rate controlled - Constitutional Vitals: Temp Pulse Resp BP Pulse Ox 98.6 F 66 16 104/70 96 05/23/17 07:38 05/23/17 07:38 05/23/17 07:38 05/23/17 07:38 05/23/17 08:50 General appearance: Present: mild distress (Due to abdominal pain), A&O X 3, morbidly obese, no acute distress, answers questions appropriately - Respiratory Respiratory exam: Present: CTAB. Absent: accessory muscle use, rales, rhonchi, wheezes - Cardiovascular Cardiovascular exam: Present: RRR, +S1, +S2. Absent: diastolic murmur, gallop, rubs, systolic murmur Internal Medicine: Result - Labs CBC & Chem 7: 05/23/17 09:34 05/23/17 09:34 Labs: Short CBC 05/23/17 Range/Units 09:34 WBC 13.1 H (4.3-11.1) K/mcL Hgb 14.2 (12.9-16.9) g/dL Hct 43.0 (37.5-50.1) % Plt Count 240 (140-400) K/mcL Neutrophils # 8.2 (1.6-8.9) K/mcL BMP 05/23/17 09:34 Sodium 136 Potassium 3.6 Chloride 104 Carbon Dioxide 28 BUN 17 Creatinine 0.79 Glucose 207 H Calcium 8.5 L - VTE Documentation of Mechanical Device: Intermittent pneumatic compression device Consult Discharge Plan - Plan Referrals: Lula Miranda MD [Primary Care Provider] - 06/02/17 3:00 pm
[2017-05-24] MEDS: Insulin LISPRO 300 UNITS/3 ML VIAL SQ SCH ×4 (05:10→20:16)
[2017-05-24] MEDS: Budesonide/Formoterol 160/4.5 MDI IH SCH ×2 (07:28→21:17)
[2017-05-24] MEDS: Diltiazem CD (24hr) 120 MG CAPSULE PO SCH (08:21)
[2017-05-24] MEDS: Loratadine 10 MG TABLET PO SCH (08:22)
[2017-05-24] MEDS: Lisinopril 20 MG TABLET PO SCH (08:22)
[2017-05-24] MEDS: MetroNIDAZOLE 500 MG/100 ML 500 MG/100 ML BAG IVPB SCH ×2 (08:22→16:19)
[2017-05-24 10:01] LABS: Basophils # 0.1 K/mcL (0.0-0.2); Basophils % 0.5 %; Eosinophils % 9.7 %; Hematocrit 40.6 % (37.5-50.1); Hemoglobin 13.8 g/dL (12.9-16.9); Immature Granulocytes % 0.4 % (0-4); Mean Corpuscular Hemoglobin 30.3 pg (28.0-33.3); Mean Corpuscular Volume 89.2 fL (83.0-100.0); Mean Platelet Volume 10.1 fL (9.4-12.4); Monocytes # 1.2 K/mcL (0.0-1.3); Monocytes % 11.2 %; Neutrophils # 6.1 K/mcL (1.6-8.9); Platelet Count 223 K/mcL (140-400); Red Blood Count 4.55 M/mcL (4.19-5.50); Red Cell Distribution Width 12.7 % (11.5-14.5); Segmented Neutrophils % 59.2 %
[2017-05-24 10:33] LABS: BUN/Creatinine Ratio 16 (6-26); Blood Urea Nitrogen 11 mg/dL (8-23); Calcium 8.3 mg/dL (8.6-10.3); Carbon Dioxide 27 mEq/L (23-29); Chloride 104 mEq/L (98-107); Glucose 180 mg/dL (70-105); Osmolality,Calculated 290 (280-300); Potassium 3.4 mEq/L (3.5-5.1); Sodium 138 mEq/L (136-145); eGFR For African Americans > 60 (> 60); eGFR For Non-African Americans > 60 (> 60)
[2017-05-24] MEDS: *HR* HYDROcodone/Acet 5/325 mg TABLET PO PRN ×2 (12:58→20:15)
--- NOTE | 2017-05-24 17:45 | Internal Med Progress Note ---
Date of Encounter: 05/24/17 Time of Encounter: 11:00 - Assessment and plan (1) Colitis Current Visit: Yes Status: Acute Assessment and plan: Patient no longer with abdominal discomfort and leukocytosis has resolved Patient still having bloody bowel movements with clots however Abdominal CT shows nonspecific acute left colitis Continue IV Cipro/Flagyl Will consult GI and appreciate recommendations (2) GI bleed Current Visit: Yes Status: Acute Assessment and plan: Hemoglobin stable; continue to monitor Patient will follow-up with GI as an outpatient for colonoscopy after inflammation of colitis has resolved Qualifiers: GI bleed type/associated pathology: unspecified gastrointestinal hemorrhage type Qualified Code(s): K92.2 - Gastrointestinal hemorrhage, unspecified (3) New onset a-fib Current Visit: Yes Status: Acute Assessment and plan: -Patient now rate controlled on oral Cardizem. -Echocardiogram with LVEF of 60-65% with normal LV function. No evidence of pulmonary hypertension or valvular dysfunction -Cardiology following and appreciate recommendations (4) COPD (chronic obstructive pulmonary disease) Current Visit: Yes Status: Chronic Assessment and plan: Stable; continue home medications Qualifiers: COPD type: unspecified COPD Qualified Code(s): J44.9 - Chronic obstructive pulmonary disease, unspecified (5) Diabetes mellitus Current Visit: Yes Status: Chronic Assessment and plan: Continue sliding scale insulin Qualifiers: Diabetes mellitus type: type 2 Diabetes mellitus long-term insulin use: without long-term use Diabetes mellitus complication status: with hyperglycemia Qualified Code(s): E11.65 - Type 2 diabetes mellitus with hyperglycemia (6) Essential hypertension Current Visit: Yes Status: Chronic Assessment and plan: Controlled; continue home medications - Subjective Interval history: Patient reports abdominal pain has resolved but still having blood in stools Patient currently in normal sinus rhythm - Constitutional Vitals: Temp Pulse Resp BP Pulse Ox 97.4 F L 89 15 127/86 95 05/24/17 11:05 05/24/17 11:05 05/24/17 11:05 05/24/17 11:05 05/24/17 11:05 General appearance: Present: mild distress (Due to abdominal pain), A&O X 3, morbidly obese, no acute distress, answers questions appropriately Internal Medicine: Result - Labs CBC & Chem 7: 05/24/17 09:15 05/24/17 09:15 Labs: Short CBC 05/24/17 Range/Units 09:15 WBC 10.2 (4.3-11.1) K/mcL Hgb 13.8 (12.9-16.9) g/dL Hct 40.6 (37.5-50.1) % Plt Count 223 (140-400) K/mcL Neutrophils # 6.1 (1.6-8.9) K/mcL BMP 05/24/17 09:15 Sodium 138 Potassium 3.4 L Chloride 104 Carbon Dioxide 27 BUN 11 Creatinine 0.69 L Glucose 180 H Calcium 8.3 L - VTE Documentation of Mechanical Device: Intermittent pneumatic compression device Consult Discharge Plan - Plan Referrals: Lula Miranda MD [Primary Care Provider] - 06/02/17 3:00 pm
[2017-05-25] MEDS: MetroNIDAZOLE 500 MG/100 ML 500 MG/100 ML BAG IVPB SCH ×4 (00:13→23:16)
[2017-05-25] MEDS: *HR* HYDROcodone/Acet 5/325 mg TABLET PO PRN ×2 (06:19→13:22)
[2017-05-25 06:33] LABS: Basophils # 0.1 K/mcL (0.0-0.2); Basophils % 0.7 %; Eosinophils # 0.8 K/mcL (0.0-0.6); Eosinophils % 8.4 %; Hematocrit 42.6 % (37.5-50.1); Hemoglobin 14.4 g/dL (12.9-16.9); Immature Granulocytes % 1.1 % (0-4); Immature Platelets 3.9 % (1.1-6.1); Lymphocytes # 2.5 K/mcL (0.6-4.6); Lymphocytes % 25.3 %; Mean Corpuscular HGB Conc 33.8 g/dL (31.6-35.5); Mean Corpuscular Hemoglobin 30.2 pg (28.0-33.3); Mean Corpuscular Volume 89.3 fL (83.0-100.0); Mean Platelet Volume 10.2 fL (9.4-12.4); Monocytes # 1.1 K/mcL (0.0-1.3); Monocytes % 10.7 %; Neutrophils # 5.3 K/mcL (1.6-8.9); Platelet Count 253 K/mcL (140-400); Red Blood Count 4.77 M/mcL (4.19-5.50); Red Cell Distribution Width 12.5 % (11.5-14.5); Segmented Neutrophils % 53.8 %
[2017-05-25 06:49] LABS: BUN/Creatinine Ratio 12 (6-26); Blood Urea Nitrogen 8 mg/dL (8-23); Calcium 8.4 mg/dL (8.6-10.3); Carbon Dioxide 24 mEq/L (23-29); Chloride 104 mEq/L (98-107); Glucose 202 mg/dL (70-105); Osmolality,Calculated 290 (280-300); Potassium 3.4 mEq/L (3.5-5.1); Sodium 138 mEq/L (136-145); eGFR For African Americans > 60 (> 60); eGFR For Non-African Americans > 60 (> 60)
[2017-05-25] MEDS: Insulin LISPRO 300 UNITS/3 ML VIAL SQ SCH ×4 (07:50→21:48)
[2017-05-25] MEDS: Loratadine 10 MG TABLET PO SCH (07:59)
[2017-05-25] MEDS: Diltiazem CD (24hr) 120 MG CAPSULE PO SCH (07:59)
[2017-05-25] MEDS: Lisinopril 20 MG TABLET PO SCH (07:59)
[2017-05-25] MEDS: Budesonide/Formoterol 160/4.5 MDI IH SCH ×2 (10:27→19:50)
--- NOTE | 2017-05-25 12:11 | Gastroenterology Consult Note ---
<Nate Buenrostro - Last Filed: 05/25/17 12:08> Date of Encounter: 05/25/17 Time of Encounter: 10:30 - Assessment and plan (1) Colitis Current Visit: Yes Status: Acute Assessment and plan: Likely secondary to ischemic colitis. CT A/P with probable nonspecific acute colitis on the left. He started on Cipro and Flagyl. Abdominal pain has improved. He denies any further bloody BMs. Planned for colonoscopy tomorrow, but patient refuses procedure. Pt states his last colonoscopy was painful, and is not willing to complete another cscope as his bleeding has stopped. I explained the importance of completing colonoscopy and risks of not completing the scope, including missing source of bleeding, malignancy. Pt continued to refuse colonoscopy. (2) GI bleed Current Visit: Yes Status: Acute Assessment and plan: Secondary to colitis. Hgb WNL at 14.4. Qualifiers: GI bleed type/associated pathology: unspecified gastrointestinal hemorrhage type Qualified Code(s): K92.2 - Gastrointestinal hemorrhage, unspecified - Time Spent With Patient Total time spent is greater than 50% in coordination of care (as documented) at patient's floor/unit and/or counseling patient: GI History of Present Illness - Data of Consult Patient: new to practice Consult date: 05/25/17 Requesting Physician: Hernando Randle - Consult Narrative Reason for consult: Lower GI bleed History of present illness: Mr. Lamb is a 62 year old male with PMHx of asthma, COPD, diabetes, HTN, JOSE who presented with complaints of rectal bleeding and abdominal pain that started 05/21/2017. No alleviating or aggravating factors noted with abdominal pain. No fever, chills, chest pain, nausea, vomiting. He had 3-4 episodes of bright red bleeding per rectum, not associated with bowel movements. No history of hemorrhoids. He reported a similar episode of bleeding a few years ago, when he was diagnosed with colitis. CT A/P with probable nonspecific acute colitis on the left. He started on Cipro and Flagyl. Abdominal pain has improved and he last had a bloody BM with clots yesterday. He denies any bleeding today. Hgb is normal at 14.4. Procedures: Colonoscopy 02/24/2001 Dr. Jenkins: AVM and hyperplastic polyp. NSAIDs: ASA Anticoagulation: None Past Med Surg Social Fam HX - Past Medical History Medical history: asthma, COPD, coronary artery disease, diabetes, hypertension, other Psychiatric history: no psych history - Past Surgical History Surgical History: appendectomy, coronary bypass (CABG) - Social History Smoking Status: Never smoker Smokeless Tobacco Status: No Alcohol use: none Drug use: none - Family History Father Living Status: Hx Family Neurologic Disorders: Yes (aneurysin) - Gastrointestinal Gastrointestinal: Present: as per HPI - Constitutional Constitutional: as per HPI - EENT Eyes: as per HPI Ears: Present: as per HPI Nose, mouth and throat: Present: as per HPI - Cardiovascular Cardiovascular ROS: Present: as per HPI - Respiratory Respiratory IM: Present: as per HPI - Genitourinary Genitourinary: Absent: change in color, Urinary frequency - Neurological ROS Neurological GI: Present: as per HPI - Hematologic/Lymphatic Hematologic/Lymphatic pediatric: Present: as per HPI - Musculoskeletal Musculoskeletal ROS GI: Present: as per HPI - Integumentary Integumentary GI: Present: as per HPI - Psychiatric ROS Psychiatric GI: Present: as per HPI - Endocrine Endocrine IM: Present: as per HPI - Constitutional Vitals: Temp Pulse Resp BP Pulse Ox 97.9 F 90 14 138/78 96 05/25/17 11:00 05/25/17 11:00 05/25/17 11:00 05/25/17 11:00 05/25/17 11:00 General appearance: Present: cooperative, A&O X 3, no acute distress, answers questions appropriately - Head Head exam: Present: atraumatic, normocephalic - Eye Eye exam: Present: normal appearance, sclera anicteric - ENT ENT exam: Present: mucous membranes moist - Neck Neck exam general surgery: Present: normal inspection, trachea midline - Respiratory Respiratory exam: Present: CTAB - Cardiovascular Cardiovascular exam: Present: RRR, +S1, +S2 - GI/Abdominal GI/Abdominal exam: Present: soft, no peritoneal signs. Absent: distended, firm , guarding, tenderness - Rectal Rectal exam: Present: deferred - Extremities Exam Extremities exam: Present: warm - Neurological Exam Neurological exam: Present: no focal deficits - Psychiatric Psychiatric exam: Present: normal affect, normal mood - Skin Skin exam: Present: dry, intact, normal color, warm Results - Labs CBC & Chem 7: 05/25/17 06:04 05/25/17 06:04 Labs: Last Result Calcium 8.4 mg/dL (8.6-10.3) L 05/25/17 06:04 Troponin I 0.04 ng/mL (< 0.04) H* 05/22/17 08:46 Entire Visit Hgb 14.4 g/dL (12.9-16.9) 05/25/17 06:04 Hct 42.6 % (37.5-50.1) 05/25/17 06:04 Consult Discharge Plan - Plan Referrals: Lula Miranda MD [Primary Care Provider] - 06/02/17 3:00 pm <Khurram Box - Last Filed: 05/25/17 20:46> Date of Encounter: 05/25/17 Time of Encounter: 14:30 - Time Spent With Patient Total time spent is greater than 50% in coordination of care (as documented) at patient's floor/unit and/or counseling patient: GI History of Present Illness - Data of Consult Requesting Physician: Hernando Randle - Consult Narrative History of present illness: Mr. Lamb is a 62 year old male - Constitutional Vitals: Temp Pulse Resp BP Pulse Ox 97.8 F 87 18 124/81 93 05/25/17 19:56 05/25/17 19:56 05/25/17 19:56 05/25/17 19:56 05/25/17 19:56 Results - Labs CBC & Chem 7: 05/25/17 06:04 05/25/17 06:04 Labs: Last Result Calcium 8.4 mg/dL (8.6-10.3) L 05/25/17 06:04 Troponin I 0.04 ng/mL (< 0.04) H* 05/22/17 08:46 Entire Visit Hgb 14.4 g/dL (12.9-16.9) 05/25/17 06:04 Hct 42.6 % (37.5-50.1) 05/25/17 06:04 - Attending Attestation I have personally performed a face to face evaluation on this patient. I have reviewed and agree with the care plan. History and Exam by me shows:
--- NOTE | 2017-05-25 18:13 | Internal Med Progress Note ---
Date of Encounter: 05/25/17 Time of Encounter: 11:00 - Assessment and plan (1) Colitis Current Visit: Yes Status: Acute Assessment and plan: Patient no longer with bloody stools, abdominal discomfort or leukocytosis Abdominal CT shows nonspecific acute left colitis Continue IV Cipro/Flagyl GI consulted but patient refuses colonoscopy (2) GI bleed Current Visit: Yes Status: Acute Assessment and plan: Hemoglobin stable; continue to monitor Patient refuses colonoscopy as above Qualifiers: GI bleed type/associated pathology: unspecified gastrointestinal hemorrhage type Qualified Code(s): K92.2 - Gastrointestinal hemorrhage, unspecified (3) New onset a-fib Current Visit: Yes Status: Acute Assessment and plan: -Patient now rate controlled on oral Cardizem. -Echocardiogram with LVEF of 60-65% with normal LV function. No evidence of pulmonary hypertension or valvular dysfunction -Cardiology recommendations for oral anticoagulation and patient has chosen Eliquis -Recommendations also for nuclear medicine stress tests and patient will complete part 2 on 05/26/17 (4) COPD (chronic obstructive pulmonary disease) Current Visit: Yes Status: Chronic Assessment and plan: Stable; continue home medications Qualifiers: COPD type: unspecified COPD Qualified Code(s): J44.9 - Chronic obstructive pulmonary disease, unspecified (5) Diabetes mellitus Current Visit: Yes Status: Chronic Assessment and plan: Continue sliding scale insulin Qualifiers: Diabetes mellitus type: type 2 Diabetes mellitus procedure rn insulin use: without mcc use Diabetes mellitus complication status: with hyperglycemia Qualified Code(s): E11.65 - Type 2 diabetes mellitus with hyperglycemia (6) Essential hypertension Current Visit: Yes Status: Chronic Assessment and plan: Controlled; continue home medications - Subjective Interval history: Patient with resolution of presenting complaints abdominal pain and lower GI bleed. GI consult but patient refuses colonoscopy. Patient also developed new onset paroxysmal atrial fibrillation and cardio consulted with recommendation of nuclear medicine stress test and to start oral anticoagulation therapy. Second part of two-part stress test scheduled for 05/26/17 - Constitutional Vitals: Temp Pulse Resp BP Pulse Ox 98.1 F 86 14 119/69 95 05/25/17 15:02 05/25/17 15:02 05/25/17 15:02 05/25/17 15:02 05/25/17 15:02 General appearance: Present: mild distress (Due to abdominal pain), A&O X 3, morbidly obese, no acute distress, answers questions appropriately - Respiratory Respiratory exam: Present: CTAB. Absent: accessory muscle use, rales, rhonchi, wheezes - Cardiovascular Cardiovascular exam: Present: RRR, +S1, +S2. Absent: diastolic murmur, gallop, rubs, systolic murmur - GI/Abdominal GI/Abdominal exam: Present: normal bowel sounds, soft, no peritoneal signs. Absent: distended, tenderness Internal Medicine: Result - Labs CBC & Chem 7: 05/25/17 06:04 05/25/17 06:04 Labs: Short CBC 05/25/17 Range/Units 06:04 WBC 9.8 (4.3-11.1) K/mcL Hgb 14.4 (12.9-16.9) g/dL Hct 42.6 (37.5-50.1) % Plt Count 253 (140-400) K/mcL Neutrophils # 5.3 (1.6-8.9) K/mcL BMP 05/25/17 06:04 Sodium 138 Potassium 3.4 L Chloride 104 Carbon Dioxide 24 BUN 8 Creatinine 0.69 L Glucose 202 H Calcium 8.4 L - VTE Documentation of Mechanical Device: Intermittent pneumatic compression device Consult Discharge Plan - Plan Referrals: Lula Miranda MD [Primary Care Provider] - 06/02/17 3:00 pm
[2017-05-25] MEDS: Apixaban 5 MG TABLET PO SCH (21:45)
[2017-05-26 05:07] VITALS: BP 146/82
[2017-05-26] MEDS ORDERED: Regadenoson 0.4 MG/5 ML SYRINGE IVP ONE (06:09)
[2017-05-26] MEDS: Budesonide/Formoterol 160/4.5 MDI IH SCH (07:30)
[2017-05-26] MEDS: Insulin LISPRO 300 UNITS/3 ML VIAL SQ SCH (08:51)
[2017-05-26] MEDS: Loratadine 10 MG TABLET PO SCH (09:02)
[2017-05-26] MEDS: Apixaban 5 MG TABLET PO SCH (09:02)
[2017-05-26] MEDS: MetroNIDAZOLE 500 MG/100 ML 500 MG/100 ML BAG IVPB SCH (09:03)
[2017-05-26] MEDS: Lisinopril 20 MG TABLET PO SCH (09:03)
[2017-05-26] MEDS: Diltiazem CD (24hr) 120 MG CAPSULE PO SCH (09:03)
--- NOTE | 2017-05-26 10:58 | Discharge Summary ---
- NOTES TO OUTPATIENT PROVIDER Notes to Outpatient Provider: F/up on further GI bleed; monitor blood glucose; Hba1C 10.6% Orders not resulted at time of discharge: Pending orders 05/25/17 10:52 NM margarita perf SPECT multi [NM] Routine Date of Encounter: 05/26/17 Time of Encounter: 10:56 - Discharge Diagnosis (1) Colitis Priority: Primary Status: Acute (2) GI bleed Priority: Primary Status: Acute Qualifiers: GI bleed type/associated pathology: unspecified gastrointestinal hemorrhage type Qualified Code(s): K92.2 - Gastrointestinal hemorrhage, unspecified (3) New onset a-fib Priority: Primary Status: Acute (4) COPD (chronic obstructive pulmonary disease) Priority: Secondary Status: Chronic Qualifiers: COPD type: unspecified COPD Qualified Code(s): J44.9 - Chronic obstructive pulmonary disease, unspecified (5) Obstructive sleep apnea Priority: Secondary Status: Chronic (6) Diabetes mellitus Priority: Secondary Status: Chronic Qualifiers: Diabetes mellitus type: type 2 Diabetes mellitus terminal gauger supervisor insulin use: without terminal gauger supervisor use Diabetes mellitus complication status: with hyperglycemia Qualified Code(s): E11.65 - Type 2 diabetes mellitus with hyperglycemia (7) Essential hypertension Priority: Secondary Status: Chronic Hospital course: Mr. Lamb is a 62 year old male with the above medical problems, who was admitted with sudden onset of bright red bleeding per rectum. CT abdomen/ pelvis showed probable nonspecific acute colitis on the left, infectious versus ischemic. He was started on medical management with IV hydration, bowel rest, IV antibiotics-ciprofloxacin and Flagyl. He was also noted to have new onset of atrial fibrillation with rapid ventricular response, started on IV Cardizem drip. Echocardiogram showed preserved ejection fraction, indeterminate diastolic function, severely dilated left atrium. Cardiology was consulted, agreed with this management, recommended medical anticoagulation. Cardizem was eventually converted to by mouth Cardizem, lisinopril dose was appropriately decreased. Nuclear stress test was completed, negative for ischemia or infarct. Patient has had no further rectal bleeding since admission, hemoglobin remained fairly stable. Gastroenterology was consulted and recommended colonoscopy, however patient was noted to have refuse this due to having significant pain with a previous colonoscopy. He has been started on oral anticoagulation with Eliquis, [place] check completed and patient is provided with prescription for this. He was noted to have uncontrolled diabetes with hemoglobin A1c 10.6%, he refuses to start treatment for diabetes. Patient and family were explained about lifestyle modifications including diabetic diet, exercise and weight loss , they verbalized understanding. Discharge discussed with: patient, family - Time Spent with Patient Total time spent providing and/or coordinating discharge services: Greater than 30 minutes (45 min) - Discharge Medications Prescriptions: Ciprofloxacin HCl [Cipro] 500 mg PO BID #8 tablet Diltiazem CD (24hr) [Cardizem CD] 120 mg PO DAILY #30 cap.er.24h metroNIDAZOLE [Flagyl] 500 mg PO TID #12 tablet Home Medications: Albuterol Sulfate [Ventolin Hfa] 2 puff IH Q4H PRN 07/10/16 [History] Calcium Carbonate [Calcium] 600 mg PO DAILY 07/10/16 [History] Carbidopa/Levodopa [Carbidopa-Levodopa 10-100 Tab] 1 tab PO HS 07/10/16 [History ] Cinnamon Bark [Cinnamon] 500 mg PO DAILY 07/10/16 [History] Cyclobenzaprine HCl 5 mg PO TID PRN 07/10/16 [History] DiphenhydraMINE [Benadryl] 25 mg PO Q8HR PRN 07/10/16 [History] Fexofenadine HCl [Allergy Relief] 180 mg PO DAILY 07/10/16 [History] Fluticasone Propionate Nasal [Flonase] 1 spr NS BID 07/10/16 [History] Furosemide [Lasix] 20 mg PO DAILY 07/10/16 [History] Garcinia Cambogia-Chromium 1 cap PO DAILY 07/10/16 [History] Guaifenesin [Mucinex] 600 mg PO Q12H 07/10/16 [History] Ipratropium/Albuterol Neb [Duoneb] 3 ml IH QID PRN 07/10/16 [History] Omeprazole [PriLOSEC] 20 mg PO DAILY 07/10/16 [History] Potassium Chloride [Klor-Con 10] 10 meq PO DAILY 07/10/16 [History] Pravastatin Sodium [Pravachol] 40 mg PO HS 07/10/16 [History] Theophylline Anhydrous [Theodur] 300 mg PO BID 07/10/16 [History] Vitamin E (Dl,Tocopheryl Acet) [Vitamin E] 400 unit PO DAILY 07/10/16 [History] traZODone [TraZODone] 50 - 100 mg PO HS PRN 07/10/16 [History] Acetaminophen [Tylenol Arthritis] 1,300 mg PO Q8H PRN 05/21/17 [History] Aspirin Enteric Coated [Aspirin EC] 81 mg PO DAILY 05/21/17 [History] Fluticasone/Salmeterol [Advair 500-50 Diskus] 1 each IH BID 05/21/17 [History] Apixaban [Eliquis] 5 mg PO BID tablet 05/26/17 [Rx] Ciprofloxacin HCl [Cipro] 500 mg PO BID #8 tablet 05/26/17 [Rx] Diltiazem CD (24hr) [Cardizem CD] 120 mg PO DAILY #30 cap.er.24h 05/26/17 [Rx] Lisinopril [Zestril] 20 mg PO DAILY tablet 05/26/17 [Rx] metroNIDAZOLE [Flagyl] 500 mg PO TID #12 tablet 05/26/17 [Rx] Allergies/Adverse Reactions: 3 Allergy/AdvReac Type Severity Reaction Status Date / Time Penicillins Allergy SWELLING Verified 07/10/16 07:23 Date of admission: 05/22/17 00:15 Primary care physician: Lula Miranda MD Consults: 05/24/17 17:45 Consult to Gastroenterology [CONS] Routine Consulting Provider: Gastroenterology [facility] Reason for Consult: Lower GI bleed Call Completed: No Discharging clinician: Stacy Gill Anticipated date of discharge: 05/26/17 - Constitutional Vitals: Temp Pulse Resp BP Pulse Ox 98.1 F 90 14 146/82 97 05/26/17 05:04 05/26/17 05:04 05/26/17 05:04 05/26/17 05:04 05/26/17 05:04 General appearance: Present: A&O X 3, morbidly obese, answers questions appropriately - Respiratory Respiratory exam: Present: CTAB. Absent: accessory muscle use, rales, rhonchi, wheezes - Cardiovascular Cardiovascular exam: Present: RRR, +S1, +S2. Absent: diastolic murmur, gallop, rubs, systolic murmur - Patient Status Disposition: Home, Self-Care Condition: Good Functional capacity at discharge: independent ambulation Overall status at discharge: patient is progressing back to baseline - Discharge Instructions Instructions: Ciprofloxacin (By mouth), Diltiazem (By mouth), Metronidazole ( By mouth), Diabetic Hypoglycemia (GEN), Basic Carbohydrate Counting (DC) Follow Up With: Cardiology [facility] [Provider Group] (Office will call with appt. Thank you) Lula Miranda MD [Primary Care Provider] - 06/02/17 3:00 pm Additional Instructions: F/up with Cardiology in 2-3 weeks - Diet and Activity Activity: resume usual activities as tolerated Diet: diabetic diet, low fat, low cholesterol, low salt diet - VTE Documentation of Mechanical Device: Intermittent pneumatic compression device
--- NOTE | 2017-05-26 16:18 | Electrocardiograph Report ---
[place] [address] Test Date: 2017-05-21 Pat Name: Maxim Lamb Department: 103 Room: 3A43 Gender: M Last Scourer: GRACIELA : 1955 Requested By: Emma Rodas Order Number: [id number] Reading MD: Alivia Dawkins Measurements Intervals [place] Rate: 110 P: SC: 0 QRS: 63 QRSD: 107 T: 0 QT: 351 QTc: 416 Interpretive Statements ATRIAL FIBRILLATION WITH RAPID VENTRICULAR RESPONSE LOW QRS VOLTAGE IN PRECORDIAL LEADS [QRS DEFLECTION < 1.0 mV IN CHEST LEADS] INCOMPLETE RIGHT BUNDLE BRANCH BLOCK [90+ ms QRS DURATION, TERMINAL R IN V1/V2, 40+ ms S IN I/aVL/V4/V5/V6] ABNORMAL RHYTHM ECG Electronically Signed On 05-26-2017 15:52:31 EDT by Alivia Dawkins
--- NOTE | 2017-05-26 21:18 | Electrocardiograph Report ---
[place] [address] Test Date: 2017-05-21 Pat Name: Maxim Lamb Department: 103 Room: 3A43 Gender: M Overnight Cashier: [id number] : 1955 Requested By: Abigail Williamson Order Number: [id number] Reading MD: Flaco Augustin DO Measurements Intervals [place] Rate: 100 P: GA: 0 QRS: 67 QRSD: 114 T: -13 QT: 375 QTc: 432 Interpretive Statements ATRIAL FIBRILLATION WITH RAPID VENTRICULAR RESPONSE INCOMPLETE RIGHT BUNDLE BRANCH BLOCK NONSPECIFIC ST-T CHANGES Electronically Signed On 05-26-2017 21:16:58 EDT by Flaco Augustin DO
--- NOTE | 2017-05-26 22:28 | Electrocardiograph Report ---
[place] [address] Test Date: 2017-05-22 Pat Name: Maxim Lamb Department: 115 Room: 3A43 Gender: M Leaf Blender: : 1955 Requested By: Melissa Pandey Order Number: [id number] Reading MD: Flaco Augustin DO Measurements Intervals [place] Rate: 106 P: [place]: 0 QRS: 75 QRSD: 108 T: -14 QT: 338 QTc: 400 Interpretive Statements ATRIAL FIBRILLATION WITH RAPID VENTRICULAR RESPONSE RIGHT BUNDLE BRANCH BLOCK Electronically Signed On 05-26-2017 22:26:35 EDT by Flaco Augustin DO
== END 2017-05-26 13:24 | disposition home or self-care (01) | DRG 386 ==
LOC: EMEROO 13:45 → 3ANU 13:45 → SUATTDRO 05-22 00:15
PROVIDERS: ADMIT Student in an Organized Health Care Education/Training Program; ATTEND Internal Medicine

== ENCOUNTER 2017-06-23 16:35 | Observation (INO) ==
[2017-06-23 17:08] LABS: Basophils # 0.1 K/mcL (0.0-0.2); Basophils % 0.9 %; Eosinophils # 0.7 K/mcL (0.0-0.6); Eosinophils % 7.5 %; Hematocrit 47.6 % (37.5-50.1); Immature Granulocytes % 0.6 % (0-4); Lymphocytes % 20.7 %; Mean Corpuscular HGB Conc 33.6 g/dL (31.6-35.5); Mean Corpuscular Hemoglobin 30.1 pg (28.0-33.3); Mean Corpuscular Volume 89.6 fL (83.0-100.0); Mean Platelet Volume 10.5 fL (9.4-12.4); Monocytes % 10.3 %; Neutrophils # 5.9 K/mcL (1.6-8.9); Platelet Count 259 K/mcL (140-400); Red Blood Count 5.31 M/mcL (4.19-5.50); Red Cell Distribution Width 13.2 % (11.5-14.5)
[2017-06-23 17:13] LABS: INR 1.3; Prothrombin Time 13.6 Seconds (9.4-12.1)
[2017-06-23 17:15] LABS: Activated Partial Thrombo Time 33.3 Seconds (26.0-36.0)
[2017-06-23 17:29] LABS: Troponin I < 0.03 ng/mL (< 0.04)
[2017-06-23 17:35] LABS: Alanine Aminotransferase 22 Units/L (7-52); Albumin 4.3 g/dL (3.5-5.7); Albumin/Globulin Ratio 1.3 (1.1-2.2); Alkaline Phosphatase 73 Units/L (34-104); Aspartate Amino Transferase 16 Units/L (13-39); BUN/Creatinine Ratio 17 (6-26); Bilirubin,Total 0.5 mg/dL (0.3-1.0); Blood Urea Nitrogen 16 mg/dL (8-23); Carbon Dioxide 29 mEq/L (23-29); Chloride 102 mEq/L (98-107); Globulin 3.3 g/dL (2.4-3.5); Glucose 180 mg/dL (70-105); Osmolality,Calculated 294 (280-300); Potassium 4.2 mEq/L (3.5-5.1); Sodium 139 mEq/L (136-145); Total Protein 7.6 g/dL (6.4-8.9); eGFR For African Americans > 60 (> 60); eGFR For Non-African Americans > 60 (> 60)
[2017-06-23 17:43] LABS: Thyroid Stimulating Hormone 0.439 mcIU/mL (0.340-5.600)
--- NOTE | 2017-06-23 18:44 | Emergency Department Note ---
Disposition Clinical Impression: Atrial fibrillation Qualifiers: Atrial fibrillation type: unspecified Qualified Code(s): I48.91 - Unspecified atrial fibrillation Disposition: Still a Patient Condition: Good Referrals: Lula Miranda MD [Primary Care Provider] - Time of Disposition: 18:47 Arrhythmia/Palpitations HPI - General Chief Complaint: ED Arrhythmia/Palpitations Stated Complaint: Afib RVR Time Seen by Provider: 06/23/17 16:57 Source: patient Mode of arrival: ambulatory Limitations: no limitations Nursing Notes Reviewed: Yes Vital Signs Reviewed: Yes - History of Present Illness HPI Narrative: Patient presents from the cardiology clinic today for evaluation of A. fib RVR. Patient was recently diagnosed with this issue. He went to the clinic today for follow-up appointment for his evaluation and he was concerned because his heart rate was elevated. Patient denies any other symptoms or complaints. He was sent over here by the assembler musical equipment for admission secondary to the atrial fibrillation with rapid ventricular response. Pt Subjective Complaint: irregular heart beat Onset (ago): day(s) Duration: constant Severity: mild Context: occurred during rest Arrhythmia History: atrial fibrillation Associated symptoms: Reports: denies other symptoms - Related Data Home Medications Medication Instructions Recorded Confirmed Albuterol Sulfate [Ventolin Hfa] 2 puff IH Q4H PRN 07/10/16 05/21/17 Calcium Carbonate [Calcium] 600 mg PO DAILY 07/10/16 05/21/17 Carbidopa/Levodopa 1 tab PO HS 07/10/16 05/21/17 [Carbidopa-Levodopa 10-100 Tab] Cinnamon Bark [Cinnamon] 500 mg PO DAILY 07/10/16 05/21/17 Cyclobenzaprine HCl 5 mg PO TID PRN 07/10/16 05/21/17 DiphenhydraMINE [Benadryl] 25 mg PO Q8HR PRN 07/10/16 05/21/17 Fexofenadine HCl [Allergy Relief] 180 mg PO DAILY 07/10/16 05/21/17 Fluticasone Propionate Nasal 1 spr NS BID 07/10/16 05/21/17 [Flonase] Furosemide [Lasix] 20 mg PO DAILY 07/10/16 05/21/17 Garcinia Cambogia-Chromium 1 cap PO DAILY 07/10/16 05/21/17 Guaifenesin [Mucinex] 600 mg PO Q12H 07/10/16 05/21/17 Ipratropium/Albuterol Neb [Duoneb] 3 ml IH QID PRN 07/10/16 05/21/17 Omeprazole [PriLOSEC] 20 mg PO DAILY 07/10/16 05/21/17 Potassium Chloride [Klor-Con 10] 10 meq PO DAILY 07/10/16 05/21/17 Pravastatin Sodium [Pravachol] 40 mg PO HS 07/10/16 05/21/17 Theophylline Anhydrous [Theodur] 300 mg PO BID 07/10/16 05/21/17 Vitamin E (Dl,Tocopheryl Acet) 400 unit PO DAILY 07/10/16 05/21/17 [Vitamin E] traZODone [TraZODone] 50 - 100 mg PO HS PRN 07/10/16 05/21/17 Acetaminophen [Tylenol Arthritis] 1,300 mg PO Q8H PRN 05/21/17 05/21/17 Aspirin Enteric Coated [Aspirin EC] 81 mg PO DAILY 05/21/17 05/21/17 Fluticasone/Salmeterol [Advair 1 each IH BID 05/21/17 05/21/17 500-50 Diskus] Previous Rx's Medication Instructions Recorded Apixaban [Eliquis] 5 mg PO BID tablet 05/26/17 Ciprofloxacin HCl [Cipro] 500 mg PO BID #8 tablet 05/26/17 Diltiazem CD (24hr) [Cardizem CD] 120 mg PO DAILY #30 cap.er.24h 05/26/17 Lisinopril [Zestril] 20 mg PO DAILY tablet 05/26/17 metroNIDAZOLE [Flagyl] 500 mg PO TID #12 tablet 05/26/17 Allergies Allergy/AdvReac Type Severity Reaction Status Date / Time Penicillins Allergy SWELLING Verified 06/23/17 16:42 All systems ED: reviewed and negative except as stated. Review of Systems: As Per HPI Constitutional: Denies: fever, chills Cardiovascular: Reports: palpitations, edema. Denies: chest pain, dyspnea on exertion, orthopnea Respiratory: Denies: cough, dyspnea, wheezes Gastrointestinal: Denies: nausea, vomiting, diarrhea Genitourinary: Denies: dysuria, frequency Musculoskeletal: Denies: back pain, neck pain Neurological: Denies: headache Past Medical History - Past Medical History Attestation: Yes The following information was validated with the patient. Source: patient Medical history: Reports: asthma, atrial fibrillation, COPD, coronary artery disease, diabetes, GI bleed, hypertension, other Surgical history: Reports: appendectomy, coronary bypass (CABG) Psychiatric history: Reports: no psych history - Social History Smoking Status: Former smoker Smokeless Tobacco Status: No Alcohol use: Reports: none Drug use: Reports: none Physical Exam - General Limitations: no limitations General appearance: alert - Head Head exam: atraumatic, normocephalic, normal inspection - ENT ENT exam: normal exam, normal oropharynx, mucous membranes moist - Neck Neck exam: Present: normal inspection, full ROM, trachea midline - Chest Chest inspection: Present: normal inspection, symmetric chest wall rise - Respiratory Respiratory exam: Present: normal lung sounds bilaterally - Cardiovascular Cardiovascular exam: Present: tachycardia, irregular rhythm, normal heart sounds - Abdominal Exam Abdominal exam: Present: soft, Non-Tender. Absent: tenderness, distention, guarding, rebound, rigidity, Barron's sign, Rovsing's sign, tenderness at McBurney's Point - Extremities Exam Extremities exam: Present: normal inspection, full ROM, pedal edema. Absent: tenderness - Back Exam Back exam: Present: normal inspection, full ROM. Absent: tenderness - Neurological Exam Neurological exam: Present: alert, oriented X3, CN II-XII intact, normal gait - Skin Skin exam: Present: warm, dry, intact, normal color Course Course Narrative: Patient seen and examined the time of arrival. See history of present illness. 61-year-old male presents to the emergency room with A. fib with RVR. Patient was seen in the outpatient clinic today after being diagnosed with paroxysmal A. fib approximately one month ago. He is currently on anticoagulation medication Eliquis. Patient has not had any symptoms since going home. He went into the outpatient fall evaluation and was told that his heart rate was elevated again. They were concerned and decided the patient in to be evaluated in the emergency room. Patient sent emergency room for further treatment course and evaluation. Screening labs ordered include CBC chemistry Y troponin as well as chest x-ray. Disposition will most probably be admission. He is currently on anticoagulation. Initial heart rate was 110. No acute intervention required at this time. Patient is otherwise clinically stable. - Reevaluation(s) Reevaluation #1: Patient's labs are unremarkable this time chest x-ray stable. Patient is waiting for admission of this point. For the hospital to contact us back to complete this treatment course. Patient is otherwise clinically stable. No acute intervention required at this time. Time: 18:46 Reevaluation #2: Patient signed out to the nighttime physicians Dr. Mendieta. He will complete admission at this time. Review of presentation were discussed Time: 19:21 Vital Signs Temperature 98.7 F 06/23/17 16:44 Pulse Rate 108 06/23/17 16:44 Respiratory Rate 20 06/23/17 16:44 Blood Pressure 144/89 06/23/17 16:44 O2 Sat by Pulse Oximetry 95 06/23/17 16:44 Temperature 98.7 F 06/23/17 16:44 Pulse Rate 108 06/23/17 16:44 Respiratory Rate 20 06/23/17 16:44 Blood Pressure 144/89 06/23/17 16:44 O2 Sat by Pulse Oximetry 95 06/23/17 16:44 Oxygen Delivery Oxygen Delivery Room Air Arrhythmia/Palpitations - MDM Narrative Medical decision making narrative: Atrial fibrillation with rapid ventricular response. - Medical Records Medical records reviewed: Yes I reviewed the patient's medical records. - Lab Data Lab results reviewed: Yes I reviewed the patient's lab results. Result diagrams: 06/23/17 16:52 06/23/17 16:52 Lab Results 06/23/17 06/23/17 06/23/17 Range/Units 16:52 16:52 16:52 WBC 9.8 (4.3-11.1) K/mcL RBC 5.31 (4.19-5.50) M/mcL Hgb 16.0 (12.9-16.9) g/dL Hct 47.6 (37.5-50.1) % MCV 89.6 (83.0-100.0) fL MCH 30.1 (28.0-33.3) pg MCHC 33.6 (31.6-35.5) g/dL RDW 13.2 (11.5-14.5) % Plt Count 259 (140-400) K/mcL MPV 10.5 (9.4-12.4) fL Immature Gran % 0.6 (0-4) % Seg Neutrophils % 60.0 % Lymphocytes % 20.7 % Monocytes % 10.3 % Eosinophils % 7.5 % Basophils % 0.9 % Neutrophils # 5.9 (1.6-8.9) K/mcL Lymphocytes # 2.0 (0.6-4.6) K/mcL Monocytes # 1.0 (0.0-1.3) K/mcL Eosinophils # 0.7 H (0.0-0.6) K/mcL Basophils # 0.1 (0.0-0.2) K/mcL PT 13.6 H (9.4-12.1) Seconds INR 1.3 APTT 33.3 (26.0-36.0) Seconds Sodium 139 (136-145) mEq/L Potassium 4.2 (3.5-5.1) mEq/L Chloride 102 (98-107) mEq/L Carbon Dioxide 29 (23-29) mEq/L BUN 16 (8-23) mg/dL Creatinine 0.92 (0.70-1.30) mg/dL Est GFR ( Amer) > 60 (> 60) Est GFR (Non-Af Amer) > 60 (> 60) BUN/Creatinine Ratio 17 (6-26) Glucose 180 H (70-105) mg/dL Calculated Osmolality 294 (280-300) Calcium 10.0 (8.6-10.3) mg/dL Total Bilirubin 0.5 (0.3-1.0) mg/dL AST 16 (13-39) Units/L ALT 22 (7-52) Units/L Alkaline Phosphatase 73 (34-104) Units/L Troponin I < 0.03 (< 0.04) ng/mL Serum Total Protein 7.6 (6.4-8.9) g/dL Albumin 4.3 (3.5-5.7) g/dL Globulin 3.3 (2.4-3.5) g/dL Albumin/Globulin Ratio 1.3 (1.1-2.2) TSH 0.439 (0.340-5.600) mcIU/mL - Radiology Data Radiology results reviewed: Yes I reviewed the patient's radiology results. Chest x-ray stable for acute pathology. - EKG Data EKG attestation: Yes I reviewed and interpreted this EKG. EKG results narrative: EKG reviewed. Ventricular rate of 109. Irregularly irregular rhythm noted on exam. Morphology appears to be stable. No acute signs of ST segment elevation or abnormality. EKG is compared to previous EKG collected. Patient has no acute changes this time. Patient otherwise is comfortable at this point. QRS duration is 105. QTC of 406.
[2017-06-23] MEDS ORDERED: Ipratropium/Albuterol Neb 3 ML IH PRN (20:10)
[2017-06-23] MEDS ORDERED: traZODone 50 MG TABLET PO PRN (20:10)
[2017-06-23] MEDS ORDERED: Naloxone 0.4 MG/ML INJ IVP PRN (20:17)
[2017-06-23] MEDS: Apixaban 5 MG TABLET PO SCH (22:02)
[2017-06-23] MEDS: Fluticasone Propionate Nasal 50 MCG/SPRAY BOTTLE NS SCH (22:10)
[2017-06-23] MEDS ORDERED: *HR* Metoprolol 5 MG/5 ML VIAL IVP ONE (22:52)
[2017-06-23] MEDS ORDERED: *HR* Dextrose 50 % in Water (Syg) 50 ML SYRINGE IVP PRN (22:55)
[2017-06-23] MEDS ORDERED: D5% in Water 1,000 ML IVC PRN (22:55)
[2017-06-23] MEDS ORDERED: Dextrose Gel 15 GM/37.5 ML TUBE PO PRN ×2 (22:55)
--- NOTE | 2017-06-23 23:00 | Internal Med History&Physical ---
Date of Encounter: 06/23/17 Time of Encounter: 22:51 Internal Medicine - H&P: HPI Chief complaint: My heart rate was fast Admitted From: Home Plans for Post Hospital Care: Home History of present illness: Mr. Lamb is a 62 year old male with COPD, JOSE, Morbid Obesity, DM Recently dsicharged 05/2017 after management for coltis, new onset Afib was diagnosed in that admission Patient presented to the cardioogy office for follow up and was referred to the ER due to Afib with RVR He was asymptomatic at that time, and asymptomatic at time of eval EKG in the ER was Ventricular rate of 108, and CBC/Chem/Mag/TSH /was unremarkable CXR was unremarkable for any acute findings except chronic atelectasis. Patient's last admission about 2 weeks ago, he had an unremarkable echocardiogram, stress test, and cardiology review is noted. Patient has no chest, cardiac, abdominal, genitourinary, or neurologic symptoms. We will place him on observation and adjust his home medication. He is already on anticoagulation continue the same. Past Med Surg Social Fam HX - Past Medical History Medical history: asthma, atrial fibrillation, COPD, coronary artery disease, diabetes, GI bleed, hypertension, other Psychiatric history: no psych history - Past Surgical History Surgical History: appendectomy - Social History Smoking Status: Former smoker Smokeless Tobacco Status: No Alcohol use: none Drug use: none - Family History Father Living Status: Hx Family Neurologic Disorders: Yes (cva) Mother Living Status: Still Living Hx Family Cardiac Disorders: No Hx Family Respiratory Disorders: No Hx Family Cancer: No Hx Family GI Disorders: No Hx Family Genitourinary Disorders: No Hx Family Endocrine Disorder: No Hx Family Musculoskeletal Disorders: No Hx Family Neuromuscular Disorders: No Hx Family Neurologic Disorders: No Hx Family HEENT Disorders: No Hx Family Autoimmune Disorders: No Hx Family Reproductive Disorders: No Hx Family Psychosocial Disorders: No Hx Family Medical Disorders: No Internal Medicine - H&P: Meds Albuterol Sulfate [Ventolin Hfa] 2 puff IH Q4H PRN 07/10/16 [History] Calcium Carbonate [Calcium] 600 mg PO DAILY 07/10/16 [History] Carbidopa/Levodopa [Carbidopa-Levodopa 10-100 Tab] 1 tab PO HS 07/10/16 [History ] Cinnamon Bark [Cinnamon] 500 mg PO DAILY 07/10/16 [History] Cyclobenzaprine HCl 5 mg PO TID PRN 07/10/16 [History] DiphenhydraMINE [Benadryl] 25 mg PO Q8HR PRN 07/10/16 [History] Fexofenadine HCl [Allergy Relief] 180 mg PO DAILY 07/10/16 [History] Fluticasone Propionate Nasal [Flonase] 1 spr NS BID 07/10/16 [History] Furosemide [Lasix] 20 mg PO DAILY 07/10/16 [History] Guaifenesin [Mucinex] 600 mg PO Q12H 07/10/16 [History] Ipratropium/Albuterol Neb [Duoneb] 3 ml IH QID PRN 07/10/16 [History] Omeprazole [PriLOSEC] 20 mg PO DAILY 07/10/16 [History] Potassium Chloride [Klor-Con 10] 10 meq PO DAILY 07/10/16 [History] Pravastatin Sodium [Pravachol] 40 mg PO HS 07/10/16 [History] Theophylline Anhydrous [Theodur] 300 mg PO BID 07/10/16 [History] Vitamin E (Dl,Tocopheryl Acet) [Vitamin E] 400 unit PO DAILY 07/10/16 [History] traZODone [TraZODone] 50 - 100 mg PO HS PRN 07/10/16 [History] Acetaminophen [Tylenol Arthritis] 1,300 mg PO Q8H PRN 05/21/17 [History] Aspirin Enteric Coated [Aspirin EC] 81 mg PO DAILY 05/21/17 [History] Fluticasone/Salmeterol [Advair 500-50 Diskus] 1 each IH BID 05/21/17 [History] Apixaban [Eliquis] 5 mg PO BID tablet 05/26/17 [Rx] Diltiazem CD (24hr) [Cardizem CD] 120 mg PO DAILY #30 cap.er.24h 05/26/17 [Rx] Lisinopril [Zestril] 20 mg PO DAILY tablet 05/26/17 [Rx] levoFLOXacin [Levofloxacin] 500 mg PO DAILY 06/23/17 [History] metFORMIN [Glucophage] 500 mg PO DAILY 06/23/17 [History] 3 Allergy/AdvReac Type Severity Reaction Status Date / Time Penicillins Allergy SWELLING Verified 06/23/17 18:57 All Systems PM: A 10-system review of systems was performed and is negative for pertinent findings except as documented above in the HPI. - Constitutional Constitutional: no chills, no fever(s), no night sweats - EENT Eyes: no change in vision, no discharge, no pain, no photophobia Ears: no ear discharge, no ear pain, no tinnitus Nose, mouth and throat: no dysphagia, no nasal discharge, no neck pain, no sore throat - Cardiovascular Cardiovascular ROS IM: no chest pain, no diaphoresis, no dyspnea, no lightheadedness, no palpitations, no syncope - Respiratory Respiratory: no cough, no dyspnea, no wheezing, no excessive phlegm production - Gastrointestinal Gastrointestinal: no abdominal pain, no diarrhea, no hematemesis, no hematochezia, no melena, no nausea, no vomiting - Musculoskeletal Musculoskeletal ROS IM: no numbness, no tingling - Integumentary Integumentary IM: no rash, no unusual bruising - Neurological Neurological ROS: no confusion, no convulsions, no focal weakness, no numbness, no tingling, no tremor(s) - Hematologic/Lymphatic Hematologic/Lymphatic: no easy bruising - Constitutional Vitals: Temp Pulse Resp BP Pulse Ox 97.9 F 108 16 146/102 93 06/23/17 21:13 06/23/17 21:13 06/23/17 21:13 06/23/17 21:13 06/23/17 21:13 General: Alert and oriented, morbid obesity Mental Status: Affect appropriate for circumstances HEENT: Sclerae anicteric. No mucositis or thrush. No other oral lesions or erythema. Skin: No rashes or petechiae. Lungs: Clear to auscultation bilaterally. Cardiovascular: Regular rate and rhythm. HR 90. No gallops, murmurs, or rubs. Abdomen: Soft, nontender; no organomegaly or masses palpable. Extremities: No edema. No calf swelling or tenderness. No joint deformity. Neurologic: Alert, cranial nerves II-XII intact; no focal weakness or sensory abnormalities. General appearance: Present: morbidly obese Internal Med - H&P Results - Labs CBC & Chem 7: 06/23/17 16:52 06/23/17 16:52 - Assessment and plan (1) Atrial fibrillation Current Visit: Yes Status: Chronic Assessment and plan: With RVR at time of evaluation on referral by cardiology. Asymptomatic, hemodynamically stable Currently heart rate is controlled. HR on presentation to ER 128 Give IV metoprolol 5mg once for HR >110 Continue home dose of cardizem Titrate up prn Continue eliquis No indication for repetition for cardiac workup such as echocardiogram and stress test. NO Indication for cardiology evaluation at this time. Qualifiers: Atrial fibrillation type: chronic Qualified Code(s): I48.2 - Chronic atrial fibrillation (2) COPD (chronic obstructive pulmonary disease) Current Visit: Yes Status: Chronic Assessment and plan: Not in exacerbation. Continue home MDIs. Qualifiers: COPD type: unspecified COPD Qualified Code(s): J44.9 - Chronic obstructive pulmonary disease, unspecified (3) Diabetes mellitus Current Visit: Yes Status: Chronic Assessment and plan: continue home dose of metformin, FS ACHS SSI low dose Qualifiers: Diabetes mellitus type: type 2 Diabetes mellitus correction insulin use: without long term care pharmacist use Diabetes mellitus complication status: with hyperglycemia Qualified Code(s): E11.65 - Type 2 diabetes mellitus with hyperglycemia (4) Essential hypertension Current Visit: Yes Status: Chronic Assessment and plan: controlled at this time, continue home meds (5) Obstructive sleep apnea Current Visit: Yes Status: Chronic Assessment and plan: CPAP at bedtime - Time Spent With Patient Total time spent is greater than 50% in coordination of care (as documented) at patient's floor/unit and/or counseling patient:
[2017-06-23] MEDS: Budesonide/Formoterol 160/4.5 MDI IH SCH (23:49)
[2017-06-24] MEDS ORDERED: Acetaminophen 325 MG TABLET PO PRN (03:54)
[2017-06-24 05:23] LABS: Basophils # 0.1 K/mcL (0.0-0.2); Basophils % 0.9 %; Eosinophils # 0.8 K/mcL (0.0-0.6); Eosinophils % 9.5 %; Hematocrit 43.1 % (37.5-50.1); Hemoglobin 14.5 g/dL (12.9-16.9); Immature Granulocytes % 0.6 % (0-4); Lymphocytes # 2.5 K/mcL (0.6-4.6); Lymphocytes % 28.2 %; Mean Corpuscular HGB Conc 33.6 g/dL (31.6-35.5); Mean Corpuscular Hemoglobin 30.1 pg (28.0-33.3); Mean Corpuscular Volume 89.4 fL (83.0-100.0); Mean Platelet Volume 10.7 fL (9.4-12.4); Monocytes # 1.2 K/mcL (0.0-1.3); Neutrophils # 4.3 K/mcL (1.6-8.9); Platelet Count 234 K/mcL (140-400); Red Blood Count 4.82 M/mcL (4.19-5.50); Red Cell Distribution Width 13.2 % (11.5-14.5); Segmented Neutrophils % 47.8 %
[2017-06-24 05:41] LABS: BUN/Creatinine Ratio 17 (6-26); Blood Urea Nitrogen 13 mg/dL (8-23); Calcium 9.1 mg/dL (8.6-10.3); Carbon Dioxide 30 mEq/L (23-29); Chloride 102 mEq/L (98-107); Glucose 190 mg/dL (70-105); Magnesium 1.6 mg/dL (1.6-2.6); Osmolality,Calculated 293 (280-300); Potassium 3.5 mEq/L (3.5-5.1); Sodium 139 mEq/L (136-145); eGFR For African Americans > 60 (> 60); eGFR For Non-African Americans > 60 (> 60)
[2017-06-24] MEDS: Apixaban 5 MG TABLET PO SCH (08:30)
[2017-06-24] MEDS: Insulin LISPRO 300 UNITS/3 ML VIAL SQ SCH ×2 (08:40→12:24)
[2017-06-24] MEDS ORDERED: Aspirin Enteric Coated 81 MG Tablet PO SCH (09:00)
[2017-06-24] MEDS ORDERED: *HR* Metformin 500 MG TABLET PO SCH (09:00)
[2017-06-24] MEDS ORDERED: Diltiazem CD (24hr) 120 MG CAPSULE PO SCH (09:00)
[2017-06-24] MEDS ORDERED: Loratadine 10 MG TABLET PO SCH (09:00)
[2017-06-24] MEDS ORDERED: Furosemide 20 MG TABLET PO SCH (09:00)
[2017-06-24] MEDS ORDERED: Lisinopril 20 MG TABLET PO SCH (09:00)
[2017-06-24] MEDS: Budesonide/Formoterol 160/4.5 MDI IH SCH (11:04)
[2017-06-24 11:11] VITALS: BP 135/84
--- NOTE | 2017-06-24 11:23 | Cardiology Consult Note ---
<Maryann Jamil - Last Filed: 06/24/17 11:53> Date of Encounter: 06/24/17 Time of Encounter: 10:00 Assessment and Plan (1) Atrial fibrillation Status: Chronic Per cardiology: -Recently diagnosed with a.fib. -Was seen in cardiology office yesterday and noted to be a.fib RVR, sent to ER. -Was given IV metoprolol. -HR now controlled. Average HR previous 12 hours noted to be 87, a.fib -On cardizem CD 120mg BID. -ON eliquis for antocoagulation. Patient is unsure if he can afford, eliquis bethea checked and noted to be $42/month. Patient reports is affordable for patient. -TTE 05/2017 with LVEF preserved, severely dilated left atrium, no segmental wall motion abnormalities. -Stress 05/2017 negative for ischemia. -Will add beta ashley, toprol 25mg daily. -Anticipate cardiology sign off. Will continue to follow in outpatient setting. Qualifiers: Atrial fibrillation type: chronic Qualified Code(s): I48.2 - Chronic atrial fibrillation Discussion w patient/family: The assessment and plan as outlined above was discussed with the patient who expressed understanding and agreement. All questions were answered. Thank you for involving us in the care of your patient. Please call with any questions. Discussed and reviewed with . History of Present Illness Consult date: 06/24/17 Requesting physician: Ketty Navarro Consult reason: a.fib rvr Chief complaint: high HR History of present illness: Mr. Lamb is a 62 year old male With a relevant past medical history of a.fib, DVT, HTN, COPD, GERD, JOSE. Patient presented to [facility] by recommendations from cardiology for a.fib RVR. Patient denies increased shortness of breath. Denies palpitations or fluttering. Patient states he is ready to go home. Past Med Surg Social Fam HX - Past Medical History Attestation: Yes The following information was validated with the patient. Source: patient, old records reviewed Medical history: asthma, atrial fibrillation, COPD, coronary artery disease, diabetes, GI bleed, hypertension, other Psychiatric history: no psych history - Past Surgical History Surgical History: appendectomy - Social History Smoking Status: Former smoker Smokeless Tobacco Status: No Alcohol use: none Drug use: none - Family History Father Living Status: Hx Family Neurologic Disorders: Yes (cva) Mother Living Status: Still Living Hx Family Cardiac Disorders: No Hx Family Respiratory Disorders: No Hx Family Cancer: No Hx Family GI Disorders: No Hx Family Genitourinary Disorders: No Hx Family Endocrine Disorder: No Hx Family Musculoskeletal Disorders: No Hx Family Neuromuscular Disorders: No Hx Family Neurologic Disorders: No Hx Family HEENT Disorders: No Hx Family Autoimmune Disorders: No Hx Family Reproductive Disorders: No Hx Family Psychosocial Disorders: No Hx Family Medical Disorders: No Medications and Allergies Albuterol Sulfate [Ventolin Hfa] 2 puff IH Q4H PRN 07/10/16 [History] Calcium Carbonate [Calcium] 600 mg PO DAILY 07/10/16 [History] Carbidopa/Levodopa [Carbidopa-Levodopa 10-100 Tab] 1 tab PO HS 07/10/16 [History ] Cinnamon Bark [Cinnamon] 500 mg PO DAILY 07/10/16 [History] Cyclobenzaprine HCl 5 mg PO TID PRN 07/10/16 [History] DiphenhydraMINE [Benadryl] 25 mg PO Q8HR PRN 07/10/16 [History] Fexofenadine HCl [Allergy Relief] 180 mg PO DAILY 07/10/16 [History] Fluticasone Propionate Nasal [Flonase] 1 spr NS BID 07/10/16 [History] Furosemide [Lasix] 20 mg PO DAILY 07/10/16 [History] Guaifenesin [Mucinex] 600 mg PO Q12H 07/10/16 [History] Ipratropium/Albuterol Neb [Duoneb] 3 ml IH QID PRN 07/10/16 [History] Omeprazole [PriLOSEC] 20 mg PO DAILY 07/10/16 [History] Potassium Chloride [Klor-Con 10] 10 meq PO DAILY 07/10/16 [History] Pravastatin Sodium [Pravachol] 40 mg PO HS 07/10/16 [History] Theophylline Anhydrous [Theodur] 300 mg PO BID 07/10/16 [History] Vitamin E (Dl,Tocopheryl Acet) [Vitamin E] 400 unit PO DAILY 07/10/16 [History] traZODone [TraZODone] 50 - 100 mg PO HS PRN 07/10/16 [History] Acetaminophen [Tylenol Arthritis] 1,300 mg PO Q8H PRN 05/21/17 [History] Aspirin Enteric Coated [Aspirin EC] 81 mg PO DAILY 05/21/17 [History] Fluticasone/Salmeterol [Advair 500-50 Diskus] 1 each IH BID 05/21/17 [History] Diltiazem CD (24hr) [Cardizem CD] 120 mg PO DAILY #30 cap.er.24h 05/26/17 [Rx] Lisinopril [Zestril] 20 mg PO DAILY tablet 05/26/17 [Rx] levoFLOXacin [Levofloxacin] 500 mg PO DAILY 06/23/17 [History] metFORMIN [Glucophage] 500 mg PO DAILY 06/23/17 [History] Apixaban [Eliquis] 5 mg PO BID #60 tablet 06/24/17 [Rx] Metoprolol XL (24 HR) Succ [Toprol Xl] 25 mg PO DAILY #30 tab.er.24h 06/24/17 [ Rx] 3 Allergy/AdvReac Type Severity Reaction Status Date / Time Penicillins Allergy SWELLING Verified 06/23/17 18:57 All Systems Review: The remainder of the systems were reviewed and are negative - Cardiovascular Cardiovascular: as per HPI, rapid heart rate Physical Examination Vital Signs, Last 4 Hours Temp Pulse Resp BP Pulse Ox 06/24/17 11:09 98.4 F 96 14 135/84 94 General: Conversant, No Apparent Distress HEENT: Atraumatic, Normocephaly, Mucus Membranes Moist Neck: No JVD, Normal carotid pulses Cardiac: Normal S1 and S2, No Murmur, Other (Irregularly irregular) Lungs: Normal Breath Sounds, No Wheeze, Rales, Rhonchi Neuro: Alert and responsive, No focal deficits noted Abdomen: Soft, Non-Tender Skin: No rashes noted on visualized skin Musculoskeletal: No Chest Wall Tenderness Extremities: No Clubbing, No Cyanosis, No Edema, Normal Pulses Results 06/24/17 04:42 06/24/17 04:42 Lab Results Impressions Chest X-Ray 06/23/17 16:42 IMPRESSION: Low lung volume study with minimal bibasilar atelectasis. Otherwise no acute process. D/ / 06/23/2017 17:51:37 Shine Garzon MD / [email or web address] Interpreting Provider: Shine Garzon MD Active Medications Acetaminophen (Tylenol) 1,300 mg PO Q8H PRN PRN Reason: Pain Stop: 12/24/17 03:55 Albuterol Sulfate (Albuterol Inhaler) 2 puff IH [id number] PRN PRN Reason: Shortness Of Breath Stop: 12/23/17 20:11 Albuterol/Ipratropium (Duoneb) 3 ml IH QIDR PRN PRN Reason: Shortness Of Breath Stop: 12/23/17 20:11 Apixaban (Eliquis) 5 mg PO BID AMMY Stop: 12/23/17 21:01 Last Admin: 06/24/17 08:30 Dose: 5 mg Aspirin (Aspirin Ec) 81 mg PO DAILY AMMY Stop: 12/24/17 09:01 Last Admin: 06/24/17 08:30 Dose: 81 mg Atorvastatin Calcium (Lipitor) 10 mg PO HS AMMY Stop: 12/23/17 23:16 Last Admin: 06/23/17 23:41 Dose: 10 mg Budesonide/Formoterol Fumarate (Symbicort) 2 puff IH BIDRESP AMMY Stop: 12/23/17 23:16 Last Admin: 06/24/17 11:04 Dose: 2 puff Calcium Carbonate (Tums) 500 mg PO DAILY AMMY Stop: 12/24/17 09:01 Last Admin: 06/24/17 08:29 Dose: 500 mg Carbidopa/Levodopa (Sinemet) 1 each PO HS AMMY Stop: 12/23/17 21:01 Last Admin: 06/23/17 22:03 Dose: 1 each Cyclobenzaprine HCl (Flexeril) 5 mg PO TID PRN PRN Reason: Muscle Spasm Stop: 12/23/17 23:07 Dextrose/Water (Dextrose 50% (Syg)) 25 ml IVP AD PRN PRN Reason: Hypoglycemia Stop: 12/23/17 22:56 Diltiazem HCl (Cardizem Cd) 120 mg PO DAILY AMMY Stop: 12/24/17 09:01 Last Admin: 06/24/17 08:31 Dose: 120 mg Diphenhydramine HCl (Benadryl) 25 mg PO Q8HR PRN PRN Reason: Sleep Stop: 12/23/17 20:11 Fluticasone Propionate (Flonase) 50 mcg NS BID AMMY PRN Reason: Protocol Stop: 12/23/17 21:01 Last Admin: 06/23/17 22:10 Dose: Not Given Furosemide (Lasix) 20 mg PO DAILY AMMY Stop: 12/24/17 09:01 Last Admin: 06/24/17 08:30 Dose: 20 mg Glucagon (Glucagen) 1 mg IM ONCE PRN PRN Reason: Hypoglycemia Stop: 12/23/17 22:56 Glucose (Gluctose) 15 gm PO ONCE PRN PRN Reason: Hypoglycemia Stop: 12/23/17 22:56 Glucose (Gluctose) 30 gm PO ONCE PRN PRN Reason: Hypoglycemia Stop: 12/23/17 22:56 Guaifenesin (Mucinex) 600 mg PO Q12H AMMY Stop: 12/23/17 20:16 Last Admin: 06/24/17 08:30 Dose: 600 mg Dextrose (Dextrose 5%) 1,000 mls @ 100 mls/hr IVC .Q10H PRN PRN Reason: HYPOGLYCEMIA Stop: 12/23/17 22:56 Insulin Human Lispro (Humalog) 0 units SQ TIDAC [facility] PRN Reason: Protocol Stop: 12/24/17 07:31 Last Admin: 06/24/17 08:40 Dose: 2 units Insulin Human Lispro (Humalog) 0 units SQ HS [facility] PRN Reason: Protocol Stop: 12/24/17 21:01 Lisinopril (Zestril) 20 mg PO DAILY AMMY PRN Reason: Protocol Stop: 12/24/17 09:01 Last Admin: 06/24/17 08:30 Dose: 20 mg Loratadine (Claritin) 10 mg PO DAILY [facility] Stop: 12/24/17 09:01 Last Admin: 06/24/17 08:30 Dose: 10 mg Metformin HCl (Glucophage) 500 mg PO DAILY AMMY PRN Reason: Protocol Stop: 12/24/17 09:01 Last Admin: 06/24/17 08:30 Dose: 500 mg Metoprolol Succinate (Toprol Xl) 25 mg PO DAILY [facility] Stop: 12/24/17 11:31 Naloxone HCl (Narcan) 0.4 mg IVP Q2MIN PRN PRN Reason: SEE COMMENTS Stop: 12/23/17 20:18 Omeprazole (Prilosec) 20 mg PO DAILY AMMY PRN Reason: Protocol Stop: 12/24/17 09:01 Last Admin: 06/24/17 08:30 Dose: 20 mg Potassium Chloride (Potassium Chloride) 10 meq PO DAILY AMMY Stop: 12/24/17 09:01 Last Admin: 06/24/17 08:30 Dose: 10 meq Theophylline (Theodur) 300 mg PO BID AMMY PRN Reason: Protocol Stop: 12/23/17 21:01 Last Admin: 06/24/17 08:30 Dose: 300 mg Trazodone HCl (Trazodone) 50 mg PO HS PRN PRN Reason: Sleep Stop: 12/23/17 20:11 Vitamin E (Vitamin E) 400 unit PO DAILY AMMY Stop: 12/24/17 09:01 Last Admin: 06/24/17 08:30 Dose: 400 unit Laboratory Tests 06/23/17 06/24/17 06/24/17 16:52 04:42 04:42 Hgb 14.5 D Potassium 3.5 Creatinine 0.78 Troponin I < 0.03 TSH 0.439 - Imaging and Cardiology Chest Xray: report reviewed Stress Test: report reviewed Echo: report reviewed - EKG Interpretation EKG results cardiology: personally reviewed (ECG with fer RVR, HR 108.), other (Telemetry reviewed with average HR previous 12 hours noted to be 87, a.fib. PVCs noted.) Consult Discharge Plan - Plan Instructions: Atrial Fibrillation (GEN) Referrals: Lula Miranda MD [Primary Care Provider] - 07/06/17 3:00 pm Prescriptions: Apixaban [Eliquis] 5 mg PO BID #60 tablet Metoprolol XL (24 HR) Succ [Toprol Xl] 25 mg PO DAILY #30 tab.er.24h <Alivia Dawkins - Last Filed: 06/24/17 17:35> Date of Encounter: 06/24/17 - Attending Attestation I examined this patient and my medical decision-making was reviewed with the DIRECTOR SOCIAL WELFARE. I agree with the treatment plan as described. Mr. Lamb was discharged prior to my arrival. I discussed the case and plan with the DIRECTOR SOCIAL WELFARE. Patient presented from the office with AFIB RVR, recently diagnosed. Heart rates have been controlled while hospitalized after addition of metoprolol. He will continue cardizem. He is anticoagulated with Eliquis. Plan is to follow up as outpatient. Recent stress testing was negative for ischemia. Echo demonstrated normal LVEF. Patient on CPAP for JOSE. Assessment and Plan Discussion w patient/family: The assessment and plan as outlined above was discussed with the patient and/or family members who expressed understanding and agreement. All questions were answered. Thank you for involving us in the care of your patient. Please call with any questions. History of Present Illness History of present illness: Mr. Lamb is a 62 year old male All Systems Review: The remainder of the systems were reviewed and are negative Results 06/24/17 04:42 06/24/17 04:42 Lab Results 06/24/17 06/24/17 04:42 04:42 WBC 8.9 Hgb 14.5 D Hct 43.1 Plt Count 234 Sodium 139 Potassium 3.5 Chloride 102 Carbon Dioxide 30 H BUN 13 Creatinine 0.78 Glucose 190 H Calcium 9.1 Magnesium 1.6
[2017-06-24] MEDS ORDERED: Metoprolol XL (24 HR) Succ 25 MG TAB.ER.24H PO SCH (11:30)
[2017-06-24] MEDS: Fluticasone Propionate Nasal 50 MCG/SPRAY BOTTLE NS SCH (12:27)
--- NOTE | 2017-06-24 13:08 | Discharge Summary ---
- NOTES TO OUTPATIENT PROVIDER Notes to Outpatient Provider: Follow-up with cardiology as directed. We will continue Cardizem CD 120 mg twice a day and Toprol 25 mg daily which was added on this admission. Continue Eliquis. Follow-up with PCP in one week Date of Encounter: 06/24/17 Time of Encounter: 13:01 - Discharge Diagnosis (1) COPD (chronic obstructive pulmonary disease) Priority: Primary Status: Chronic Qualifiers: COPD type: unspecified COPD Qualified Code(s): J44.9 - Chronic obstructive pulmonary disease, unspecified (2) Diabetes mellitus Priority: Primary Status: Chronic Qualifiers: Diabetes mellitus type: type 2 Diabetes mellitus termite technician insulin use: without skilled nursing use Diabetes mellitus complication status: with hyperglycemia Qualified Code(s): E11.65 - Type 2 diabetes mellitus with hyperglycemia (3) Essential hypertension Priority: Primary Status: Chronic (4) Atrial fibrillation Priority: Primary Status: Chronic Qualifiers: Atrial fibrillation type: chronic Qualified Code(s): I48.2 - Chronic atrial fibrillation (5) Obstructive sleep apnea of adult Priority: Primary Status: Chronic Hospital course: Mr. Lamb is a 62 year old male - Time Spent with Patient Total time spent providing and/or coordinating discharge services: - Discharge Medications Prescriptions: Apixaban [Eliquis] 5 mg PO BID #60 tablet Metoprolol XL (24 HR) Succ [Toprol Xl] 25 mg PO DAILY #30 tab.er.24h Home Medications: Albuterol Sulfate [Ventolin Hfa] 2 puff IH Q4H PRN 07/10/16 [History] Calcium Carbonate [Calcium] 600 mg PO DAILY 07/10/16 [History] Carbidopa/Levodopa [Carbidopa-Levodopa 10-100 Tab] 1 tab PO HS 07/10/16 [History ] Cinnamon Bark [Cinnamon] 500 mg PO DAILY 07/10/16 [History] Cyclobenzaprine HCl 5 mg PO TID PRN 07/10/16 [History] DiphenhydraMINE [Benadryl] 25 mg PO Q8HR PRN 07/10/16 [History] Fexofenadine HCl [Allergy Relief] 180 mg PO DAILY 07/10/16 [History] Fluticasone Propionate Nasal [Flonase] 1 spr NS BID 07/10/16 [History] Furosemide [Lasix] 20 mg PO DAILY 07/10/16 [History] Guaifenesin [Mucinex] 600 mg PO Q12H 07/10/16 [History] Ipratropium/Albuterol Neb [Duoneb] 3 ml IH QID PRN 07/10/16 [History] Omeprazole [PriLOSEC] 20 mg PO DAILY 07/10/16 [History] Potassium Chloride [Klor-Con 10] 10 meq PO DAILY 07/10/16 [History] Pravastatin Sodium [Pravachol] 40 mg PO HS 07/10/16 [History] Theophylline Anhydrous [Theodur] 300 mg PO BID 07/10/16 [History] Vitamin E (Dl,Tocopheryl Acet) [Vitamin E] 400 unit PO DAILY 07/10/16 [History] traZODone [TraZODone] 50 - 100 mg PO HS PRN 07/10/16 [History] Acetaminophen [Tylenol Arthritis] 1,300 mg PO Q8H PRN 05/21/17 [History] Aspirin Enteric Coated [Aspirin EC] 81 mg PO DAILY 05/21/17 [History] Fluticasone/Salmeterol [Advair 500-50 Diskus] 1 each IH BID 05/21/17 [History] Diltiazem CD (24hr) [Cardizem CD] 120 mg PO DAILY #30 cap.er.24h 05/26/17 [Rx] Lisinopril [Zestril] 20 mg PO DAILY tablet 05/26/17 [Rx] levoFLOXacin [Levofloxacin] 500 mg PO DAILY 06/23/17 [History] metFORMIN [Glucophage] 500 mg PO DAILY 06/23/17 [History] Apixaban [Eliquis] 5 mg PO BID #60 tablet 06/24/17 [Rx] Metoprolol XL (24 HR) Succ [Toprol Xl] 25 mg PO DAILY #30 tab.er.24h 06/24/17 [ Rx] Allergies/Adverse Reactions: 3 Allergy/AdvReac Type Severity Reaction Status Date / Time Penicillins Allergy SWELLING Verified 06/23/17 18:57 Date of admission: 06/23/17 21:02 Primary care physician: Lula Miranda MD Consults: 06/24/17 08:58 Consult to Cardiology [CONS] Routine Comment: Consulting Provider: Cardiology Rhona Reason for Consult: afib RVR Time Notified: 08:58 Call Completed: Yes Discharging clinician: Ketty Navarro Anticipated date of discharge: 06/24/17 - Constitutional Vitals: Temp Pulse Resp BP Pulse Ox 98.4 F 96 14 135/84 94 06/24/17 11:09 06/24/17 11:09 06/24/17 11:09 06/24/17 11:09 06/24/17 11:09 General appearance: Present: morbidly obese - Patient Status Disposition: Home, Self-Care Condition: Good Functional capacity at discharge: independent ambulation Overall status at discharge: patient is back to baseline - Discharge Instructions Instructions: Atrial Fibrillation (GEN) Follow Up With: Lula Miranda MD [Primary Care Provider] - 07/06/17 3:00 pm - Diet and Activity Activity: resume usual activities as tolerated Diet: low fat, low cholesterol, low salt diet
--- NOTE | 2017-06-24 16:02 | Discharge Summary ---
- NOTES TO OUTPATIENT PROVIDER Notes to Outpatient Provider: Follow-up with cardiology as directed. Continue Cardizem CD 120 twice a day and Toprol 25 mg daily which was added on this admission. Continue Eliquis. Patient was given a voucher and cannot afford it per the chart. Follow-up with PCP in one week Date of Encounter: 06/24/17 Time of Encounter: 15:59 - Discharge Diagnosis (1) COPD (chronic obstructive pulmonary disease) Priority: Primary Status: Chronic Qualifiers: COPD type: unspecified COPD Qualified Code(s): J44.9 - Chronic obstructive pulmonary disease, unspecified (2) Diabetes mellitus Priority: Primary Status: Chronic Qualifiers: Diabetes mellitus type: type 2 Diabetes mellitus remote computer terminal operator insulin use: without remote computer terminal operator use Diabetes mellitus complication status: with hyperglycemia Qualified Code(s): E11.65 - Type 2 diabetes mellitus with hyperglycemia (3) Essential hypertension Priority: Primary Status: Chronic (4) Atrial fibrillation Priority: Primary Status: Acute Qualifiers: Atrial fibrillation type: chronic Qualified Code(s): I48.2 - Chronic atrial fibrillation (5) Obstructive sleep apnea of adult Priority: Primary Status: Chronic Hospital course: Mr. Lamb is a 62 year old male with history of COPD obstructive sleep apnea morbid obesity and diabetes mellitus who was discharged on 05/2017 after management for colitis and new onset of atrial fibrillation which was diagnosed during that admission. He went to the sample taker operator's office for follow-up and was found to be in a atrial fib with a rapid ventricular response. He was sent to the emergency room for evaluation. Lab work was unremarkable. Chest x-ray with no acute findings except chronic atelectasis. Patient had a unremarkable echocardiogram, stress test on last admission 2 weeks ago. Cardiology was consulted during this admission recommended addition of Toprol 25 mg by mouth, continue the Cardizem CD and continue Eliquis. The patient a concern about cost of Eliquis. It was researched and he can afford the $40 a month. He will be discharged home on the above medications and will follow-up with cardiology and his PCP as directed. Discharge discussed with: patient, nurse, cassandra consultant - Time Spent with Patient Total time spent providing and/or coordinating discharge services: Less than 30 minutes - Discharge Medications Prescriptions: Apixaban [Eliquis] 5 mg PO BID #60 tablet Metoprolol XL (24 HR) Succ [Toprol Xl] 25 mg PO DAILY #30 tab.er.24h Home Medications: Albuterol Sulfate [Ventolin Hfa] 2 puff IH Q4H PRN 07/10/16 [History] Calcium Carbonate [Calcium] 600 mg PO DAILY 07/10/16 [History] Carbidopa/Levodopa [Carbidopa-Levodopa 10-100 Tab] 1 tab PO HS 07/10/16 [History ] Cinnamon Bark [Cinnamon] 500 mg PO DAILY 07/10/16 [History] Cyclobenzaprine HCl 5 mg PO TID PRN 07/10/16 [History] DiphenhydraMINE [Benadryl] 25 mg PO Q8HR PRN 07/10/16 [History] Fexofenadine HCl [Allergy Relief] 180 mg PO DAILY 07/10/16 [History] Fluticasone Propionate Nasal [Flonase] 1 spr NS BID 07/10/16 [History] Furosemide [Lasix] 20 mg PO DAILY 07/10/16 [History] Guaifenesin [Mucinex] 600 mg PO Q12H 07/10/16 [History] Ipratropium/Albuterol Neb [Duoneb] 3 ml IH QID PRN 07/10/16 [History] Omeprazole [PriLOSEC] 20 mg PO DAILY 07/10/16 [History] Potassium Chloride [Klor-Con 10] 10 meq PO DAILY 07/10/16 [History] Pravastatin Sodium [Pravachol] 40 mg PO HS 07/10/16 [History] Theophylline Anhydrous [Theodur] 300 mg PO BID 07/10/16 [History] Vitamin E (Dl,Tocopheryl Acet) [Vitamin E] 400 unit PO DAILY 07/10/16 [History] traZODone [TraZODone] 50 - 100 mg PO HS PRN 07/10/16 [History] Acetaminophen [Tylenol Arthritis] 1,300 mg PO Q8H PRN 05/21/17 [History] Aspirin Enteric Coated [Aspirin EC] 81 mg PO DAILY 05/21/17 [History] Fluticasone/Salmeterol [Advair 500-50 Diskus] 1 each IH BID 05/21/17 [History] Diltiazem CD (24hr) [Cardizem CD] 120 mg PO DAILY #30 cap.er.24h 05/26/17 [Rx] Lisinopril [Zestril] 20 mg PO DAILY tablet 05/26/17 [Rx] levoFLOXacin [Levofloxacin] 500 mg PO DAILY 06/23/17 [History] metFORMIN [Glucophage] 500 mg PO DAILY 06/23/17 [History] Apixaban [Eliquis] 5 mg PO BID #60 tablet 06/24/17 [Rx] Metoprolol XL (24 HR) Succ [Toprol Xl] 25 mg PO DAILY #30 tab.er.24h 06/24/17 [ Rx] Allergies/Adverse Reactions: 3 Allergy/AdvReac Type Severity Reaction Status Date / Time Penicillins Allergy SWELLING Verified 06/23/17 18:57 Date of admission: 06/23/17 21:02 Primary care physician: Lula Miranda MD Consults: 06/24/17 08:58 Consult to Cardiology [CONS] Routine Comment: Consulting Provider: Cardiology Rhona Reason for Consult: afib RVR Time Notified: 08:58 Call Completed: Yes Discharging clinician: Ketty Navarro Anticipated date of discharge: 06/24/17 - Constitutional Vitals: Temp Pulse Resp BP Pulse Ox 98.4 F 96 14 135/84 94 06/24/17 11:09 06/24/17 11:09 06/24/17 11:09 06/24/17 11:09 06/24/17 11:09 General appearance: Present: cooperative, morbidly obese, pleasant, no acute distress, answers questions appropriately - Head Head exam: Present: atraumatic, normocephalic - Eye Eye exam: Present: PERRL, conjuntiva pink, sclera anicteric Pupils: Present: PERRL - Neck Neck exam general surgery: Present: supple, trachea midline. Absent: lymphadenopathy - Respiratory Respiratory exam: Present: CTAB. Absent: accessory muscle use, rales, rhonchi, wheezes - Cardiovascular Cardiovascular exam: Present: irregular rhythm. Absent: diastolic murmur, gallop, rubs, systolic murmur - GI/Abdominal GI/Abdominal exam: Present: normal bowel sounds, soft, no peritoneal signs. Absent: distended, tenderness - Extremities Exam Extremities exam: Present: warm, radial pulses palpable and symmetrical. Absent : calf tenderness, cyanotic, pedal edema - Neurological Exam Neurological exam: Present: CN II-XII intact, oriented X3, no focal deficits. Absent: pronater drift, facial droop, speech deficit - Skin Skin exam: Present: dry, intact, normal color, warm - Patient Status Disposition: Home, Self-Care Condition: Good Functional capacity at discharge: independent ambulation Overall status at discharge: patient is back to baseline - Discharge Instructions Instructions: Atrial Fibrillation (GEN) Follow Up With: Lula Miranda MD [Primary Care Provider] - 07/06/17 3:00 pm - Diet and Activity Activity: resume usual activities as tolerated Diet: diabetic diet, low fat, low cholesterol, low salt diet
[2017-06-24] MEDS ORDERED: Insulin LISPRO 300 UNITS/3 ML VIAL SQ SCH (21:00)
--- NOTE | 2017-06-26 15:20 | Electrocardiograph Report ---
[place] [id number] Test Date: 2017-06-23 Pat Name: Maxim Lamb Department: 104 Room: 3B Gender: M House Supervisor: MARIO : [id number] Requested By: Andrea Medrano Order Number: [id number] Reading MD: Flaco Augustin Measurements Intervals [place] Rate: 109 P: [place]: 0 QRS: 48 QRSD: 105 T: -1 QT: 342 QTc: 406 Interpretive Statements ATRIAL FIBRILLATION WITH RAPID VENTRICULAR RESPONSE NONSPECIFIC ST & T-WAVE ABNORMALITY Electronically Signed On 06-26-2017 15:19:15 EDT by Flaco Augustin
== END 2017-06-24 14:50 | disposition home or self-care (01) ==
LOC: EMEROO 16:35 → 3BNU 16:35
PROVIDERS: ADMIT Internal Medicine; ATTEND Registered Nurse

== ENCOUNTER 2018-06-21 13:14 | Observation (INO) ==
[2018-06-21] MEDS ORDERED: methylPREDNISolone 125 MG/2 ML VIAL IVP ONE (14:15)
[2018-06-21] MEDS ORDERED: Ipratropium/Albuterol Neb 3 ML IH ONE (14:15)
--- NOTE | 2018-06-21 14:24 | Emergency Department Note ---
Disposition Clinical Impression: Acute exacerbation of chronic obstructive airways disease Disposition: Admitted As Inpatient Condition: Fair Time of Disposition: 17:16 SOB HPI - General Chief Complaint: ED Shortness of Breath/Dyspnea Stated Complaint: SOB Time Seen by Provider: 06/21/18 13:29 Source: patient Mode of arrival: EMS Limitations: no limitations Nursing Notes Reviewed: Yes Vital Signs Reviewed: Yes - History of Present Illness Patient is a 63-year-old male with past medical history of COPD, asthma, atrial fibrillation who was recently admitted to this facility for similar complaints June 13 through the . Patient states that at discharge he really did not feel very much better, and when his prednisone taper went from 20 mg to 10 mg yesterday he started to feel more short of breath, and began to develop sharp right-sided chest pain made worse by laying down. Patient states that he wears 3 L of oxygen at night, although he has been unable to sleep over the last couple of nights becomes he becomes so short of breath when laying down. Patient states that he is using approximately 4 pillows to prop him up, without much relief. Patient states that he had 2 breathing treatments this morning at 6:30 AM, he remarks that they were albuterol. Patient also states that his legs are about a swollen as they normally are, with right leg more swollen than left due to a previous surgery on his femoral vein. He denies fevers or chills. - Related Data Home Medications Medication Instructions Recorded Confirmed Albuterol Sulfate [Ventolin Hfa] 2 puff IH Q4H PRN 07/10/16 06/14/18 Calcium Carbonate [Calcium] 600 mg PO DAILY 07/10/16 06/14/18 Carbidopa/Levodopa 1 tab PO HS 07/10/16 06/14/18 [Carbidopa-Levodopa 10-100 Tab] Cinnamon Bark [Cinnamon] 500 mg PO DAILY 07/10/16 06/14/18 Cyclobenzaprine HCl 5 mg PO TID PRN 07/10/16 06/14/18 DiphenhydraMINE [Benadryl] 25 mg PO Q8HR PRN 07/10/16 06/14/18 Fexofenadine HCl [Allergy Relief] 180 mg PO DAILY 07/10/16 06/14/18 Fluticasone Propionate Nasal 1 spr NS BID 07/10/16 06/14/18 [Flonase] Furosemide [Lasix] 20 mg PO DAILY 07/10/16 06/14/18 Guaifenesin [Mucinex] 600 mg PO Q12H 07/10/16 06/14/18 Ipratropium/Albuterol Neb [Duoneb] 3 ml IH QID PRN 07/10/16 06/14/18 Omeprazole [PriLOSEC] 20 mg PO DAILY 07/10/16 06/14/18 Potassium Chloride [Klor-Con 10] 10 meq PO DAILY 07/10/16 06/14/18 Pravastatin Sodium [Pravachol] 40 mg PO HS 07/10/16 06/14/18 Theophylline Anhydrous [Theodur] 300 mg PO BID 07/10/16 06/14/18 Vitamin E (Dl,Tocopheryl Acet) 400 unit PO DAILY 07/10/16 06/14/18 [Vitamin E] traZODone [TraZODone] 50 - 100 mg PO HS PRN 07/10/16 06/14/18 Acetaminophen [Tylenol Arthritis] 1,300 mg PO Q8H PRN 05/21/17 06/14/18 Aspirin Enteric Coated [Aspirin EC] 81 mg PO DAILY 05/21/17 06/14/18 Fluticasone/Salmeterol [Advair 1 each IH BID 05/21/17 06/14/18 500-50 Diskus] Metformin HCl [Fortamet] 500 mg PO DAILY 06/14/18 06/14/18 Previous Rx's Medication Instructions Recorded Diltiazem CD (24hr) [Cardizem CD] 120 mg PO DAILY #30 cap.er.24h 05/26/17 Lisinopril [Zestril] 20 mg PO DAILY tablet 05/26/17 Apixaban [Eliquis] 5 mg PO BID #60 tablet 06/24/17 Metoprolol XL (24 HR) Succ [Toprol 50 mg PO DAILY #30 tab.er.24h 01/29/18 Xl] Azithromycin 250 mg PO DAILY #2 tablet 06/16/18 predniSONE [PredniSONE] 40 mg PO DAILY #10 tablet 06/16/18 Allergies Allergy/AdvReac Type Severity Reaction Status Date / Time Penicillins Allergy SWELLING Verified 06/21/18 13:49 Review of Systems: All systems ED: reviewed and negative except as stated. Constitutional: Denies: fever, chills ENT ED: Denies: ear pain, throat pain Cardiovascular: Reports: sharp, right sided chest pain, palpitations Respiratory: Reports: dry cough, dyspnea Gastrointestinal: Denies: abdominal pain, nausea, vomiting, diarrhea, constipation Genitourinary: Denies: urgency, dysuria, frequency Musculoskeletal: Denies: back pain, neck pain Integumentary: Denies: rash, abrasion Neurological: Denies: headache, weakness, numbness, paresthesias Psychiatric: Denies: anxiety, depression Endocrine: Denies: fatigue, heat or cold intolerance Hematological/Lymphatic: Denies: easy bleeding, easy bruising Allergic/Immunologic: Denies: facial swelling, urticaria Past Medical History - Past Medical History Attestation: Yes The following information was validated with the patient. Source: patient Medical history: Reports: asthma, atrial fibrillation, COPD, coronary artery disease, diabetes, GI bleed, hypertension, other Surgical history: Reports: appendectomy Psychiatric history: Reports: no psych history - Social History Smoking Status: Former smoker Smokeless Tobacco Status: No Alcohol use: Reports: none Drug use: Reports: none Physical Exam General: A&O x 3. No acute distress. Well developed, well nourished, obese male. Head: atraumatic, normocephalic. ENT: No conjunctival injection, no scleral icterus. PERRLA. EOMI. Oropharynx non- erythematous. mucous membranes tacky. Neuro: No focal deficits, no speech deficit, no facial droop, mentating well. BUE/BLE Str 5/5. Pulm: Diffuse wheezes appreciated in all lung singh with prolonged expiratory phase. No focal consolidation or rales appreciated. Cardio: Heart rate irregular. Chest not tender to palpation. Abd: Soft, rounded, obese abdomen. Normoactive bowel sounds. Non-tender to palpation. No guarding. Non rigid. Extremities: Radial pulses 2+ jose de jesus, posterior tibialis 1+ jose de jesus. Jose De Jesus LE edema, R more than L with 1+ pitting edema bilaterally. No cyanosis, clubbing. Skin: warm, dry, intact. No rashes. Psych: Appropriate mood and affect. Answers questions appropriately. Cooperative with exam. - General Limitations: no limitations General appearance: alert Course Course Narrative: Ddx includes: COPD exacerbation, CHF exacerbation, developing PNA, ACS. Workup will include: CXR, EKG, CBC, BMP, BNP, troponin, Blood cultures, lactic acid, UA. Disposition pending, but expect admit. Vital Signs Temperature 98.5 F 06/21/18 13:50 Pulse Rate 98 06/21/18 13:50 Respiratory Rate 22 06/21/18 13:50 Blood Pressure 129/89 06/21/18 13:50 O2 Sat by Pulse Oximetry 95 06/21/18 13:50 Temperature 98.5 F 06/21/18 13:50 Pulse Rate 87 06/21/18 16:38 Respiratory Rate 18 06/21/18 16:38 Blood Pressure 132/88 06/21/18 16:38 O2 Sat by Pulse Oximetry 98 06/21/18 16:38 Oxygen Delivery Oxygen Delivery Room Air Shortness of Breath/Dyspnea - MDM Narrative Medical decision making narrative: Pts workup was remarkable for "tree in bud" appearance in lungs consistent with either bronchiectasis, bronchitis, or bronchiolitis. After receiving 3 duonebs, patient's lungs still had diffuse wheezes with prolonged expiratory phase and he did not feel any better. He continued to saturate ~95-96% on RA, but continued to feel dyspneic. His lactic acid returned at 2.3, he was given 1L NaCl, and he was covered for hospital acquired PNA with vancomycin, levaquin, and cefipime. Additionally, CTA revealed a 7mm nodule in his lung. The CTA findings and all of the findings were shared with the patient. Patient was given an opportunity to ask questions at bedside and all of their concerns were addressed. Patient verbalized understanding and agreement with plan of care. Pt remained stable while in the department. Pt was admitted to hospitalist, Dr. Pompa, who agreed to accept the patient to his service. - Medical Records Medical records reviewed: Yes I reviewed the patient's medical records. - Lab Data Lab results reviewed: Yes I reviewed the patient's lab results. Result diagrams: 06/21/18 14:58 06/21/18 14:49 Lab Results 06/21/18 06/21/18 06/21/18 Range/Units 14:38 14:49 14:58 WBC 11.5 H (4.3-11.1) K/mcL RBC 5.34 (4.19-5.50) M/mcL Hgb 16.4 (12.9-16.9) g/dL Hct 48.3 (37.5-50.1) % MCV 90.4 (83.0-100.0) fL MCH 30.7 (28.0-33.3) pg MCHC 34.0 (31.6-35.5) g/dL RDW 13.0 (11.5-14.5) % Plt Count 251 (140-400) K/mcL MPV 10.5 (9.4-12.4) fL Immature Gran % 1.1 (0-4) % Seg Neutrophils % 81.3 % Lymphocytes % 9.8 % Monocytes % 7.2 % Eosinophils % 0.4 % Basophils % 0.2 % Neutrophils # 9.3 H (1.6-8.9) K/mcL Lymphocytes # 1.1 (0.6-4.6) K/mcL Monocytes # 0.8 (0.0-1.3) K/mcL Eosinophils # 0.1 (0.0-0.6) K/mcL Basophils # 0.0 (0.0-0.2) K/mcL Sodium 135 L (136-145) mEq/L Potassium 5.0 (3.5-5.1) mEq/L Chloride 99 (98-107) mEq/L Carbon Dioxide 27 (23-29) mEq/L BUN 19 (8-23) mg/dL Creatinine 0.98 (0.70-1.30) mg/dL Est GFR ( Amer) > 60 (> 60) Est GFR (Non-Af Amer) > 60 (> 60) BUN/Creatinine Ratio 19 (6-26) Glucose 409 H (70-105) mg/dL Calculated Osmolality 300 (280-300) Lactic Acid (0.5-2.2) mmol/L Calcium 9.5 (8.6-10.3) mg/dL Troponin I < 0.03 (< 0.04) ng/mL B-Natriuretic Peptide (Less than 100) pg/mL Urine Color Yellow (Yellow) Urine Clarity Clear (Clear) Urine pH 6.0 (5.0-8.0) pH Units Ur Specific [place] 1.030 H (1.010-1.025) Urine Protein Negative (Neg-Trace) mg/dL Urine Glucose (UA) >=1000 H (Normal) mg/dL Urine Ketones Negative (Negative) mg/dL Urine Blood Negative (Negative) Urine Nitrite Negative (Negative) Urine Bilirubin Negative (Negative) Urine Urobilinogen Normal (Normal) mg/dL Ur Leukocyte Esterase Negative (Negative) Ur Culture Indicated? NO (NO) 06/21/18 06/21/18 Range/Units 14:58 14:58 WBC (4.3-11.1) K/mcL RBC (4.19-5.50) M/mcL Hgb (12.9-16.9) g/dL Hct (37.5-50.1) % MCV (83.0-100.0) fL MCH (28.0-33.3) pg MCHC (31.6-35.5) g/dL RDW (11.5-14.5) % Plt Count (140-400) K/mcL MPV (9.4-12.4) fL Immature Gran % (0-4) % Seg Neutrophils % % Lymphocytes % % Monocytes % % Eosinophils % % Basophils % % Neutrophils # (1.6-8.9) K/mcL Lymphocytes # (0.6-4.6) K/mcL Monocytes # (0.0-1.3) K/mcL Eosinophils # (0.0-0.6) K/mcL Basophils # (0.0-0.2) K/mcL Sodium (136-145) mEq/L Potassium (3.5-5.1) mEq/L Chloride (98-107) mEq/L Carbon Dioxide (23-29) mEq/L BUN (8-23) mg/dL Creatinine (0.70-1.30) mg/dL Est GFR ( Amer) (> 60) Est GFR (Non-Af Amer) (> 60) BUN/Creatinine Ratio (6-26) Glucose (70-105) mg/dL Calculated Osmolality (280-300) Lactic Acid 2.3 H (0.5-2.2) mmol/L Calcium (8.6-10.3) mg/dL Troponin I (< 0.04) ng/mL B-Natriuretic Peptide 94 (Less than 100) pg/mL Urine Color (Yellow) Urine Clarity (Clear) Urine pH (5.0-8.0) pH Units Ur Specific [place] (1.010-1.025) Urine Protein (Neg-Trace) mg/dL Urine Glucose (UA) (Normal) mg/dL Urine Ketones (Negative) mg/dL Urine Blood (Negative) Urine Nitrite (Negative) Urine Bilirubin (Negative) Urine Urobilinogen (Normal) mg/dL Ur Leukocyte Esterase (Negative) Ur Culture Indicated? (NO) - Radiology Data Radiology results reviewed: Yes I reviewed the patient's radiology results. Chest X-Ray 06/21/18 14:15 IMPRESSION: Borderline cardiomegaly with no acute finding in the chest. D/ / Rashaad Murguia MD / Rashaad Murguia MD Interpreting Provider: Rashaad Murguia MD Chest CTA 06/21/18 14:36 IMPRESSION: Bronchial wall thickening along with tree-in-bud centrilobular micro nodules in the lower lungs, especially the left, findings which are most compatible with inflammatory or infectious bronchitis along with bronchiolitis. Within the left lower lobe, there is an additional 7 mm nodule. Follow-up recommendations listed below. RECOMMENDATIONS: Fleischner Society guidelines for follow-up and management of incidentally detected pulmonary nodules: Multiple Solid Nodules: Nodule size equals 6-8 mm In a low-risk patient, CT at 3-6 months, then consider CT at 18-24 months. In a high-risk patient, CT at 3-6 months, then CT at 18-24 months. - Low risk patients include individuals with minimal or absent history of smoking and other known risk factors. - High risk patients include individuals with a history or smoking or known risk factors. Radiology 2017 http://pubs.[facility]na.org/doi/full/10.1148/radiol.[email or web address] D/ / Angel Murphy MD / Angel Murphy MD Interpreting Provider: Angel Murphy MD - EKG Data EKG attestation: Yes I reviewed and interpreted this EKG. EKG results narrative: HR 95, rhythm atrial fibrillation, axis right at 91. QRS 147, QTc 481. RBBB. No evidence of St elevation or depression. Study largely unchanged from previous on 06/13/18.
[2018-06-21] MEDS ORDERED: Isovue-370 500 ML BOTTLE IVP ONE (14:36)
--- NOTE | 2018-06-21 14:36 | Emergency Department Note ---
Disposition Clinical Impression: Acute exacerbation of chronic obstructive airways disease Disposition: Admitted As Inpatient Condition: Fair General Adult HPI - General Chief complaint: ED Shortness of Breath/Dyspnea Stated complaint: SOB Time Seen by Provider: 06/21/18 13:29 Source: patient Mode of arrival: EMS Limitations: no limitations - History of Present Illness Pain Scale: 7 - Related Data Home Medications Medication Instructions Recorded Confirmed Albuterol Sulfate [Ventolin Hfa] 2 puff IH Q4H PRN 07/10/16 06/14/18 Calcium Carbonate [Calcium] 600 mg PO DAILY 07/10/16 06/14/18 Carbidopa/Levodopa 1 tab PO HS 07/10/16 06/14/18 [Carbidopa-Levodopa 10-100 Tab] Cinnamon Bark [Cinnamon] 500 mg PO DAILY 07/10/16 06/14/18 Cyclobenzaprine HCl 5 mg PO TID PRN 07/10/16 06/14/18 DiphenhydraMINE [Benadryl] 25 mg PO Q8HR PRN 07/10/16 06/14/18 Fexofenadine HCl [Allergy Relief] 180 mg PO DAILY 07/10/16 06/14/18 Fluticasone Propionate Nasal 1 spr NS BID 07/10/16 06/14/18 [Flonase] Furosemide [Lasix] 20 mg PO DAILY 07/10/16 06/14/18 Guaifenesin [Mucinex] 600 mg PO Q12H 07/10/16 06/14/18 Ipratropium/Albuterol Neb [Duoneb] 3 ml IH QID PRN 07/10/16 06/14/18 Omeprazole [PriLOSEC] 20 mg PO DAILY 07/10/16 06/14/18 Potassium Chloride [Klor-Con 10] 10 meq PO DAILY 07/10/16 06/14/18 Pravastatin Sodium [Pravachol] 40 mg PO HS 07/10/16 06/14/18 Theophylline Anhydrous [Theodur] 300 mg PO BID 07/10/16 06/14/18 Vitamin E (Dl,Tocopheryl Acet) 400 unit PO DAILY 07/10/16 06/14/18 [Vitamin E] traZODone [TraZODone] 50 - 100 mg PO HS PRN 07/10/16 06/14/18 Acetaminophen [Tylenol Arthritis] 1,300 mg PO Q8H PRN 05/21/17 06/14/18 Aspirin Enteric Coated [Aspirin EC] 81 mg PO DAILY 05/21/17 06/14/18 Fluticasone/Salmeterol [Advair 1 each IH BID 05/21/17 06/14/18 500-50 Diskus] Metformin HCl [Fortamet] 500 mg PO DAILY 06/14/18 06/14/18 Previous Rx's Medication Instructions Recorded Diltiazem CD (24hr) [Cardizem CD] 120 mg PO DAILY #30 cap.er.24h 05/26/17 Lisinopril [Zestril] 20 mg PO DAILY tablet 05/26/17 Apixaban [Eliquis] 5 mg PO BID #60 tablet 06/24/17 Metoprolol XL (24 HR) Succ [Toprol 50 mg PO DAILY #30 tab.er.24h 01/29/18 Xl] Azithromycin 250 mg PO DAILY #2 tablet 06/16/18 predniSONE [PredniSONE] 40 mg PO DAILY #10 tablet 06/16/18 Allergies Allergy/AdvReac Type Severity Reaction Status Date / Time Penicillins Allergy SWELLING Verified 06/21/18 13:49 Past Medical History - Past Medical History Medical history: Reports: asthma, atrial fibrillation, COPD, coronary artery disease, diabetes, GI bleed, hypertension, other Surgical history: Reports: appendectomy Psychiatric history: Reports: no psych history - Social History Smoking Status: Former smoker Smokeless Tobacco Status: No Alcohol use: Reports: none Drug use: Reports: none Physical Exam - General Limitations: no limitations General appearance: alert Course Vital Signs Temperature 98.5 F 06/21/18 13:50 Pulse Rate 98 06/21/18 13:50 Respiratory Rate 22 06/21/18 13:50 Blood Pressure 129/89 06/21/18 13:50 O2 Sat by Pulse Oximetry 95 06/21/18 13:50 Temperature 98.5 F 06/21/18 13:50 Pulse Rate 87 06/21/18 16:38 Respiratory Rate 18 06/21/18 16:38 Blood Pressure 132/88 06/21/18 16:38 O2 Sat by Pulse Oximetry 98 06/21/18 16:38 Oxygen Delivery Oxygen Delivery Room Air Medical Decision Making - Lab Data Result diagrams: 06/21/18 14:58 04/15/19 14:49 Lab Results 06/21/18 06/21/18 06/21/18 Range/Units 14:38 14:49 14:58 WBC 11.5 H (4.3-11.1) K/mcL RBC 5.34 (4.19-5.50) M/mcL Hgb 16.4 (12.9-16.9) g/dL Hct 48.3 (37.5-50.1) % MCV 90.4 (83.0-100.0) fL MCH 30.7 (28.0-33.3) pg MCHC 34.0 (31.6-35.5) g/dL RDW 13.0 (11.5-14.5) % Plt Count 251 (140-400) K/mcL MPV 10.5 (9.4-12.4) fL Immature Gran % 1.1 (0-4) % Seg Neutrophils % 81.3 % Lymphocytes % 9.8 % Monocytes % 7.2 % Eosinophils % 0.4 % Basophils % 0.2 % Neutrophils # 9.3 H (1.6-8.9) K/mcL Lymphocytes # 1.1 (0.6-4.6) K/mcL Monocytes # 0.8 (0.0-1.3) K/mcL Eosinophils # 0.1 (0.0-0.6) K/mcL Basophils # 0.0 (0.0-0.2) K/mcL Sodium 135 L (136-145) mEq/L Potassium 5.0 (3.5-5.1) mEq/L Chloride 99 (98-107) mEq/L Carbon Dioxide 27 (23-29) mEq/L BUN 19 (8-23) mg/dL Creatinine 0.98 (0.70-1.30) mg/dL Est GFR ( Amer) > 60 (> 60) Est GFR (Non-Af Amer) > 60 (> 60) BUN/Creatinine Ratio 19 (6-26) Glucose 409 H (70-105) mg/dL Calculated Osmolality 300 (280-300) Lactic Acid (0.5-2.2) mmol/L Calcium 9.5 (8.6-10.3) mg/dL Troponin I < 0.03 (< 0.04) ng/mL B-Natriuretic Peptide (Less than 100) pg/mL Urine Color Yellow (Yellow) Urine Clarity Clear (Clear) Urine pH 6.0 (5.0-8.0) pH Units Ur Specific [place] 1.030 H (1.010-1.025) Urine Protein Negative (Neg-Trace) mg/dL Urine Glucose (UA) >=1000 H (Normal) mg/dL Urine Ketones Negative (Negative) mg/dL Urine Blood Negative (Negative) Urine Nitrite Negative (Negative) Urine Bilirubin Negative (Negative) Urine Urobilinogen Normal (Normal) mg/dL Ur Leukocyte Esterase Negative (Negative) Ur Culture Indicated? NO (NO) 06/21/18 06/21/18 Range/Units 14:58 14:58 WBC (4.3-11.1) K/mcL RBC (4.19-5.50) M/mcL Hgb (12.9-16.9) g/dL Hct (37.5-50.1) % MCV (83.0-100.0) fL MCH (28.0-33.3) pg MCHC (31.6-35.5) g/dL RDW (11.5-14.5) % Plt Count (140-400) K/mcL MPV (9.4-12.4) fL Immature Gran % (0-4) % Seg Neutrophils % % Lymphocytes % % Monocytes % % Eosinophils % % Basophils % % Neutrophils # (1.6-8.9) K/mcL Lymphocytes # (0.6-4.6) K/mcL Monocytes # (0.0-1.3) K/mcL Eosinophils # (0.0-0.6) K/mcL Basophils # (0.0-0.2) K/mcL Sodium (136-145) mEq/L Potassium (3.5-5.1) mEq/L Chloride (98-107) mEq/L Carbon Dioxide (23-29) mEq/L BUN (8-23) mg/dL Creatinine (0.70-1.30) mg/dL Est GFR ( Amer) (> 60) Est GFR (Non-Af Amer) (> 60) BUN/Creatinine Ratio (6-26) Glucose (70-105) mg/dL Calculated Osmolality (280-300) Lactic Acid 2.3 H (0.5-2.2) mmol/L Calcium (8.6-10.3) mg/dL Troponin I (< 0.04) ng/mL B-Natriuretic Peptide 94 (Less than 100) pg/mL Urine Color (Yellow) Urine Clarity (Clear) Urine pH (5.0-8.0) pH Units Ur Specific [place] (1.010-1.025) Urine Protein (Neg-Trace) mg/dL Urine Glucose (UA) (Normal) mg/dL Urine Ketones (Negative) mg/dL Urine Blood (Negative) Urine Nitrite (Negative) Urine Bilirubin (Negative) Urine Urobilinogen (Normal) mg/dL Ur Leukocyte Esterase (Negative) Ur Culture Indicated? (NO) Attestation Statement - Attestation Attestation: I examined this patient and my medical decision-making was reviewed with the Resident Physician. I agree with the documented findings, disposition and treatment plan as described except to the extent set forth below. Patient to the ED with shortness of breath. Patient recently seen and admitted for a COPD exacerbation. He states he never felt like he got better" and he is actually getting worse over the past couple of days since he is taper down his steroids. Dry cough. Stabbing right-sided chest pain. History of PEs. On examination he is diminished with end expiratory wheezing in his bases. Plan. Cardiac workup. Nebs and steroids. CTA chest. Patient is not feeling much better after treatment. CTA is negative for a PE but it does show some concerning signs for pneumonia. We will admit. I reviewed the EKG with the resident. It is unchanged from his prior EKG. Chest X-Ray 06/21/18 14:15 IMPRESSION: Borderline cardiomegaly with no acute finding in the chest. D/ / Rashaad Murguia MD / Rashaad Murguia MD Interpreting Provider: Rashaad Murguia MD Chest CTA 06/21/18 14:36 IMPRESSION: Bronchial wall thickening along with tree-in-bud centrilobular micro nodules in the lower lungs, especially the left, findings which are most compatible with inflammatory or infectious bronchitis along with bronchiolitis. Within the left lower lobe, there is an additional 7 mm nodule. Follow-up recommendations listed below. RECOMMENDATIONS: Fleischner Society guidelines for follow-up and management of incidentally detected pulmonary nodules: Multiple Solid Nodules: Nodule size equals 6-8 mm In a low-risk patient, CT at 3-6 months, then consider CT at 18-24 months. In a high-risk patient, CT at 3-6 months, then CT at 18-24 months. - Low risk patients include individuals with minimal or absent history of smoking and other known risk factors. - High risk patients include individuals with a history or smoking or known risk factors. Radiology 2017 http://pubs.[facility]na.org/doi/full/10.1148/radiol.[email or web address] D/ / Angel Murphy MD / Angel Murphy MD Interpreting Provider: Angel Murphy MD
[2018-06-21 14:51] LABS: Bilirubin,Urine Negative (Negative); Blood,Urine Negative (Negative); Clarity,Urine Clear (Clear); Color,Urine Yellow (Yellow); Glucose,Urine (UA) >=1000 mg/dL (Normal); Ketones,Urine Negative (Negative); Leukocyte Esterase,Urine Negative (Negative); Nitrite,Urine Negative (Negative); Protein,Urine Negative (Neg-Trace); Urobilinogen,Urine Normal (Normal)
[2018-06-21 15:20] LABS: Basophils % 0.2 %; Eosinophils # 0.1 K/mcL (0.0-0.6); Eosinophils % 0.4 %; Hematocrit 48.3 % (37.5-50.1); Hemoglobin 16.4 g/dL (12.9-16.9); Immature Granulocytes % 1.1 % (0-4); Lymphocytes # 1.1 K/mcL (0.6-4.6); Lymphocytes % 9.8 %; Mean Corpuscular Hemoglobin 30.7 pg (28.0-33.3); Mean Corpuscular Volume 90.4 fL (83.0-100.0); Mean Platelet Volume 10.5 fL (9.4-12.4); Monocytes # 0.8 K/mcL (0.0-1.3); Monocytes % 7.2 %; Neutrophils # 9.3 K/mcL (1.6-8.9); Platelet Count 251 K/mcL (140-400); Red Blood Count 5.34 M/mcL (4.19-5.50); Segmented Neutrophils % 81.3 %
[2018-06-21 15:36] LABS: BUN/Creatinine Ratio 19 (6-26); Blood Urea Nitrogen 19 mg/dL (8-23); Calcium 9.5 mg/dL (8.6-10.3); Carbon Dioxide 27 mEq/L (23-29); Chloride 99 mEq/L (98-107); Glucose 409 mg/dL (70-105); Osmolality,Calculated 300 (280-300); Sodium 135 mEq/L (136-145); Troponin I < 0.03 ng/mL (< 0.04); eGFR For Non-African Americans > 60 (> 60)
[2018-06-21] MEDS ORDERED: Levofloxacin 750 MG/150 ML 750 MG/150 ML BAG IVPB ONE (16:58)
[2018-06-21] MEDS ORDERED: Cefepime HCl 2,000 MG in 0.9 % Sodium Chloride Mini Bag 100 ML IVPB ONE (16:59)
[2018-06-21] MEDS ORDERED: 0.9 % Sodium Chloride 1,000 ML IVC ONE (17:00)
[2018-06-21] MEDS ORDERED: Naloxone 0.4 MG/ML INJ IVP PRN (17:18)
[2018-06-21] MEDS ORDERED: Ondansetron 4 MG/2 ML VIAL IVP PRN (17:18)
[2018-06-21] MEDS ORDERED: Albuterol 2.5 MG/3 ML NEBULIZER IH PRN (17:20)
--- NOTE | 2018-06-21 17:30 | Internal Med History&Physical ---
Date of Encounter: 06/21/18 Time of Encounter: 17:10 Internal Medicine - H&P: HPI Chief complaint: SOB Admitted From: Home History of present illness: Mr. Lamb is a 63 year old male with history of morbid obesity, COPD, atrial fibrillation, diabetes, who presented to the ED with worsening shortness of breath since his discharge on 06/16. Associated cough but no significant sputum production. Denies any fever/chills, sick contacts, URI symptoms, nausea/vomiting, or diaphoresis. No chest pain, palpitation, orthopnea, PND, or leg swelling. Tried his home nebulizer up to 4-5 times a day without significant relief hence decided to come to the ED for further evaluation. He states that he finished his course of azithromycin and steroid as prescribed by the provider. In the ED, he was afebrile and hemodynamically stable. Saturating 98% on room air. Workup did not show any significant finding except for leukocytosis of 11.5 and mild lactic acid elevation of 2.3. Urinalysis was unremarkable. Troponin and BNP were normal. CT chest angiogram was done which showed bronchial wall thickening along with tree-in-bud centrilobular christian ronodules in the lower lung L>R. He was started on IV Levaquin, IV Solu-Medrol, bronchodilators, and admitted for further management. Past Med Surg Social Fam HX - Past Medical History Attestation: Yes The following information was validated with the patient. Medical history: asthma, atrial fibrillation, COPD, coronary artery disease, diabetes, GI bleed, hypertension, other Additional medical history: Prostate problems Psychiatric history: no psych history - Past Surgical History Surgical History: appendectomy Additional surgical history: Pin in right femur - Social History Smoking Status: Former smoker Smokeless Tobacco Status: No Alcohol use: none Drug use: none - Family History Father Living Status: Hx Family Neurologic Disorders: Yes (cva) Mother Living Status: Still Living Hx Family Cardiac Disorders: No Hx Family Respiratory Disorders: No Hx Family Cancer: No Hx Family GI Disorders: No Hx Family Endocrine Disorder: No Hx Family Neuromuscular Disorders: No Hx Family Neurologic Disorders: No Hx Family HEENT Disorders: No Hx Family Autoimmune Disorders: No Internal Medicine - H&P: Meds Albuterol Sulfate [Ventolin Hfa] 2 puff IH Q4H PRN 07/10/16 [History] Calcium Carbonate [Calcium] 600 mg PO DAILY 07/10/16 [History] Carbidopa/Levodopa [Carbidopa-Levodopa 10-100 Tab] 1 tab PO HS 07/10/16 [History] Cinnamon Bark [Cinnamon] 500 mg PO DAILY 07/10/16 [History] Cyclobenzaprine HCl 5 mg PO TID PRN 07/10/16 [History] DiphenhydraMINE [Benadryl] 25 mg PO Q8HR PRN 07/10/16 [History] Fexofenadine HCl [Allergy Relief] 180 mg PO DAILY 07/10/16 [History] Fluticasone Propionate Nasal [Flonase] 1 spr NS BID 07/10/16 [History] Furosemide [Lasix] 20 mg PO DAILY 07/10/16 [History] Guaifenesin [Mucinex] 600 mg PO Q12H 07/10/16 [History] Ipratropium/Albuterol Neb [Duoneb] 3 ml IH QID PRN 07/10/16 [History] Omeprazole [PriLOSEC] 20 mg PO DAILY 07/10/16 [History] Potassium Chloride [Klor-Con 10] 10 meq PO DAILY 07/10/16 [History] Pravastatin Sodium [Pravachol] 40 mg PO HS 07/10/16 [History] Theophylline Anhydrous [Theodur] 300 mg PO BID 07/10/16 [History] Vitamin E (Dl,Tocopheryl Acet) [Vitamin E] 400 unit PO DAILY 07/10/16 [History] traZODone [TraZODone] 50 - 100 mg PO HS PRN 07/10/16 [History] Acetaminophen [Tylenol Arthritis] 1,300 mg PO Q8H PRN 05/21/17 [History] Aspirin Enteric Coated [Aspirin EC] 81 mg PO DAILY 05/21/17 [History] Fluticasone/Salmeterol [Advair 500-50 Diskus] 1 each IH BID 05/21/17 [History] Diltiazem CD (24hr) [Cardizem CD] 120 mg PO DAILY #30 cap.er.24h 05/26/17 [Rx] Lisinopril [Zestril] 20 mg PO DAILY tablet 05/26/17 [Rx] Apixaban [Eliquis] 5 mg PO BID #60 tablet 06/24/17 [Rx] Metoprolol XL (24 HR) Succ [Toprol Xl] 50 mg PO DAILY #30 tab.er.24h 01/29/18 [Rx] Metformin HCl [Fortamet] 500 mg PO DAILY 06/14/18 [History] Azithromycin 250 mg PO DAILY #2 tablet 06/16/18 [Rx] predniSONE [PredniSONE] 40 mg PO DAILY #10 tablet 06/16/18 [Rx] Allergy/AdvReac Type Severity Reaction Status Date / Time Penicillins Allergy SWELLING Verified 06/21/18 13:49 All Systems PM: A 10-system review of systems was performed and is negative for pertinent findings except as documented above in the HPI. - Constitutional Vitals: Temp Pulse Resp BP Pulse Ox 98.5 F 87 18 132/88 98 06/21/18 13:50 06/21/18 16:38 06/21/18 16:38 06/21/18 16:38 06/21/18 16:38 Exam: General: Alert and oriented, not in acute distress. HEENT:EOM, pupils equal, round and reactive. Cardiovascular:Normal S1 & S2, No JVD. Pulse regular. Normal rate Lungs: Mild end expiratory wheezes Abdomen:Soft, non-tender, no rigidity. Extremities:No deformity or swelling Neurological:Normal cognition and motor skills. Non-focal Skin:Normal color, no rash, no lesions. Pulses:Carotid and radial pulses normal +2. Rest of the physical exam is non contributory Internal Med - H&P Results - Labs CBC & Chem 7: 06/21/18 14:58 06/21/18 14:49 Labs: Short CBC 06/21/18 Range/Units 14:58 WBC 11.5 H (4.3-11.1) K/mcL Hgb 16.4 (12.9-16.9) g/dL Hct 48.3 (37.5-50.1) % Plt Count 251 (140-400) K/mcL Neutrophils # 9.3 H (1.6-8.9) K/mcL BMP 06/21/18 14:49 Sodium 135 L Potassium 5.0 Chloride 99 Carbon Dioxide 27 BUN 19 Creatinine 0.98 Glucose 409 H Calcium 9.5 Cardiac Enzymes 06/21/18 Range/Units 14:49 Troponin I < 0.03 (< 0.04) ng/mL Urine 06/21/18 Range/Units 14:38 Urine Color Yellow (Yellow) Urine Clarity Clear (Clear) Urine pH 6.0 (5.0-8.0) pH Units Ur Specific [place] 1.030 H (1.010-1.025) Urine Protein Negative (Neg-Trace) mg/dL Urine Glucose (UA) >=1000 H (Normal) mg/dL - Impressions ITS Impressions Chest X-Ray 06/21/18 14:15 IMPRESSION: Borderline cardiomegaly with no acute finding in the chest. D/ / Rashaad Murguia MD / Rashaad Murguia MD Interpreting Provider: Rashaad Murguia MD Chest CTA 06/21/18 14:36 IMPRESSION: Bronchial wall thickening along with tree-in-bud centrilobular micro nodules in the lower lungs, especially the left, findings which are most compatible with inflammatory or infectious bronchitis along with bronchiolitis. Within the left lower lobe, there is an additional 7 mm nodule. Follow-up recommendations listed below. RECOMMENDATIONS: Fleischner Society guidelines for follow-up and management of incidentally detected pulmonary nodules: Multiple Solid Nodules: Nodule size equals 6-8 mm In a low-risk patient, CT at 3-6 months, then consider CT at 18-24 months. In a high-risk patient, CT at 3-6 months, then CT at 18-24 months. - Low risk patients include individuals with minimal or absent history of smoking and other known risk factors. - High risk patients include individuals with a history or smoking or known risk factors. Radiology 2017 http://pubs.[facility]na.org/doi/full/10.1148/radiol.[email or web address] D/ / Angel Murphy MD / Angel Murphy MD Interpreting Provider: Angel Murphy MD - Assessment and Plan (1) Acute exacerbation of chronic obstructive airways disease Current Visit: Yes Status: Acute Assessment and plan: Re-admitted for worsening SOB after discharged on 06/16 states that he had completed a course of macrolide and steroid yesterday CT findings compatible with inflammatory versus infectious bronchitis along with bronchiolitis given his recurrent presentation, will treat as early PNA complicated by COPD exacerbation with IV Levaquin continue steroid and bronchodilators Check respiratory viral panel may require home O2 qualification prior to d/c (2) Diabetes mellitus type 2 in obese Current Visit: Yes Status: Chronic Assessment and plan: Cover with moderate dose sliding scale (3) Atrial fibrillation Current Visit: Yes Status: Chronic Assessment and plan: Currently in A. fib but with controlled ventricular rate resume home meds once reconciled including Eliquis Qualifiers: Atrial fibrillation type: chronic Qualified Code(s): I48.2 - Chronic atrial fibrillation (4) Essential hypertension Current Visit: No Status: Chronic Assessment and plan: resume home meds once reconciled PRN labetalol (5) Morbid obesity with BMI of 45.0-49.9, adult Current Visit: No Status: Chronic Assessment and plan: Lifestyle modifications emphasized (6) Obstructive sleep apnea Current Visit: No Status: Chronic Assessment and plan: CPAP at HS (7) DVT prophylaxis Current Visit: No Status: Acute Assessment and plan: on eliquis - Time Spent With Patient Total time spent is greater than 50% in coordination of care (as documented) at patient's floor/unit and/or counseling patient: 25 - 35 minutes
[2018-06-21] MEDS ORDERED: *HR* Dextrose 50 % in Water (Syg) 50 ML SYRINGE IVP PRN (17:36)
[2018-06-21] MEDS ORDERED: D5% in Water 1,000 ML IVC PRN (17:36)
[2018-06-21] MEDS ORDERED: Dextrose Gel 15 GM/37.5 ML TUBE PO PRN ×2 (17:36)
[2018-06-21] MEDS ORDERED: *HR* Labetalol 20 MG/4 ML SYRINGE IVP PRN (17:38)
[2018-06-21] MEDS: Ipratropium/Albuterol Neb 3 ML IH SCH ×2 (19:28→23:42)
[2018-06-21] MEDS: Apixaban 5 MG TABLET PO SCH (19:59)
[2018-06-21] MEDS ORDERED: Insulin LISPRO 300 UNITS/3 ML VIAL SQ SCH (21:00)
[2018-06-21 21:27] LABS: Adenovirus Not Detected (Not Detect); Bordetella Pertussis Not Detected (Not Detect); Chlamydophila pneumoniae Not Detected (Not Detect); Coronavirus 229E Not Detected (Not Detect); Coronavirus HKU1 Not Detected (Not Detect); Coronavirus NL63 Not Detected (Not Detect); Coronavirus OC43 DETECTED (Not Detect); Human Metapneumovirus Not Detected (Not Detect); Human Rhinovirus/Enterovirus Not Detected (Not Detect); Influenza A Subtype 2009 H1 Not Detected (Not Detect); Influenza A Untypeable Not Detected (Not Detect); Influenza B Not Detected (Not Detect); Mycoplasma pneumoniae Not Detected (Not Detect); Parainfluenza Virus 1 Not Detected (Not Detect); Parainfluenza Virus 2 Not Detected (Not Detect); Parainfluenza Virus 3 Not Detected (Not Detect); Parainfluenza Virus 4 Not Detected (Not Detect); Respiratory Syncytial Virus Not Detected (Not Detect)
[2018-06-22] MEDS: Ipratropium/Albuterol Neb 3 ML IH SCH ×3 (03:51→11:10)
[2018-06-22 07:45] LABS: Basophils % 0.1 %; Hematocrit 45.2 % (37.5-50.1); Hemoglobin 14.9 g/dL (12.9-16.9); Immature Granulocytes % 0.7 % (0-4); Lymphocytes # 0.9 K/mcL (0.6-4.6); Lymphocytes % 6.8 %; Mean Corpuscular Hemoglobin 30.2 pg (28.0-33.3); Mean Corpuscular Volume 91.5 fL (83.0-100.0); Mean Platelet Volume 10.1 fL (9.4-12.4); Monocytes % 7.3 %; Neutrophils # 11.5 K/mcL (1.6-8.9); Platelet Count 217 K/mcL (140-400); Red Blood Count 4.94 M/mcL (4.19-5.50); Red Cell Distribution Width 12.9 % (11.5-14.5); Segmented Neutrophils % 85.1 %
[2018-06-22 07:56] LABS: BUN/Creatinine Ratio 26 (6-26); Blood Urea Nitrogen 19 mg/dL (8-23); Calcium 9.2 mg/dL (8.6-10.3); Carbon Dioxide 31 mEq/L (23-29); Chloride 96 mEq/L (98-107); Glucose 388 mg/dL (70-105); Magnesium 2.1 mg/dL (1.6-2.6); Osmolality,Calculated 298 (280-300); Potassium 4.9 mEq/L (3.5-5.1); Sodium 135 mEq/L (136-145); eGFR For Non-African Americans > 60 (> 60)
[2018-06-22] MEDS ORDERED: MethylPREDNISolone 40 MG/ML VIAL IVP SCH (08:00)
[2018-06-22] MEDS: Apixaban 5 MG TABLET PO SCH (08:56)
[2018-06-22 08:57] VITALS: BP 141/96
[2018-06-22] MEDS: Insulin LISPRO 300 UNITS/3 ML VIAL SQ SCH ×2 (08:57→12:48)
[2018-06-22] MEDS ORDERED: 0.9 % Sodium Chloride 1,000 ML ONE (10:25)
--- NOTE | 2018-06-22 10:44 | Discharge Summary ---
Orders not resulted at time of discharge: Pending orders 06/21/18 14:58 Culture,Blood [BC] Stat Date of Encounter: 06/22/18 Time of Encounter: 10:39 - Discharge Diagnosis (1) Acute exacerbation of chronic obstructive airways disease Priority: Primary Status: Acute (2) Obstructive sleep apnea Priority: Secondary Status: Chronic (3) Essential hypertension Priority: Secondary Status: Chronic (4) Atrial fibrillation Priority: Secondary Status: Chronic Qualifiers: Atrial fibrillation type: chronic Qualified Code(s): I48.2 - Chronic atrial fibrillation (5) Morbid obesity with BMI of 45.0-49.9, adult Priority: Secondary Status: Chronic (6) Diabetes mellitus type 2 in obese Priority: Secondary Status: Chronic Hospital course: Mr. Lamb is a 63 year old male with history of COPD, atrial fibrillation, type 2 diabetes presented with shortness of breath. Patient had worsening shortness of breath and increasing wheezing. On presentation patient was found to have coronavirus. He was treated with IV steroids and scheduled bronchodilators. Patient on the next day stated that he felt much better. He still has mild cough that is improving. Denies any fever or chills. Patient will be discharged home with 5 days of prednisone and 5 days of Levaquin for COPD exacerbation. Patient will be discharged home in stable condition. Discharge discussed with: patient - Time Spent with Patient Total time spent providing and/or coordinating discharge services: - Discharge Medications Prescriptions: New levoFLOXacin [Levaquin] 500 mg PO DAILY #5 tablet predniSONE [PredniSONE] 40 mg PO DAILY #5 tablet Continue Albuterol Sulfate [Ventolin Hfa] 2 puff IH Q4H PRN PRN Reason: Shortness Of Breath Calcium Carbonate [Calcium] 600 mg PO DAILY Carbidopa/Levodopa [Carbidopa-Levodopa 10-100 Tab] 1 tab PO HS Cinnamon Bark [Cinnamon] 500 mg PO DAILY Cyclobenzaprine HCl 5 mg PO TID PRN PRN Reason: Muscle Spasm DiphenhydraMINE [Benadryl] 25 mg PO Q8HR PRN PRN Reason: Sleep Fexofenadine HCl [Allergy Relief] 180 mg PO DAILY Fluticasone Propionate Nasal [Flonase] 1 spr NS BID Furosemide [Lasix] 20 mg PO DAILY Guaifenesin [Mucinex] 600 mg PO Q12H Ipratropium/Albuterol Neb [Duoneb] 3 ml IH QID PRN PRN Reason: Shortness Of Breath Omeprazole [PriLOSEC] 20 mg PO DAILY Potassium Chloride [Klor-Con 10] 10 meq PO DAILY Pravastatin Sodium [Pravachol] 40 mg PO HS Theophylline Anhydrous [Theodur] 300 mg PO BID traZODone [TraZODone] 50 - 100 mg PO HS PRN PRN Reason: Sleep Vitamin E (Dl,Tocopheryl Acet) [Vitamin E] 400 unit PO DAILY Aspirin Enteric Coated [Aspirin EC] 81 mg PO DAILY Fluticasone/Salmeterol [Advair 500-50 Diskus] 1 each IH BID Acetaminophen [Tylenol Arthritis] 1,300 mg PO Q8H PRN PRN Reason: Pain Diltiazem CD (24hr) [Cardizem CD] 120 mg PO DAILY #30 cap.er.24h Lisinopril [Zestril] 20 mg PO DAILY tablet Apixaban [Eliquis] 5 mg PO BID #60 tablet Metoprolol XL (24 HR) Succ [Toprol Xl] 50 mg PO DAILY #30 tab.er.24h Metformin HCl [Fortamet] 500 mg PO DAILY Discontinued predniSONE [PredniSONE] See Taper PO DAILY Home Medications: Albuterol Sulfate [Ventolin Hfa] 2 puff IH Q4H PRN 07/10/16 [History] Calcium Carbonate [Calcium] 600 mg PO DAILY 07/10/16 [History] Carbidopa/Levodopa [Carbidopa-Levodopa 10-100 Tab] 1 tab PO HS 07/10/16 [History] Cinnamon Bark [Cinnamon] 500 mg PO DAILY 07/10/16 [History] Cyclobenzaprine HCl 5 mg PO TID PRN 07/10/16 [History] DiphenhydraMINE [Benadryl] 25 mg PO Q8HR PRN 07/10/16 [History] Fexofenadine HCl [Allergy Relief] 180 mg PO DAILY 07/10/16 [History] Fluticasone Propionate Nasal [Flonase] 1 spr NS BID 07/10/16 [History] Furosemide [Lasix] 20 mg PO DAILY 07/10/16 [History] Guaifenesin [Mucinex] 600 mg PO Q12H 07/10/16 [History] Ipratropium/Albuterol Neb [Duoneb] 3 ml IH QID PRN 07/10/16 [History] Omeprazole [PriLOSEC] 20 mg PO DAILY 07/10/16 [History] Potassium Chloride [Klor-Con 10] 10 meq PO DAILY 07/10/16 [History] Pravastatin Sodium [Pravachol] 40 mg PO HS 07/10/16 [History] Theophylline Anhydrous [Theodur] 300 mg PO BID 07/10/16 [History] Vitamin E (Dl,Tocopheryl Acet) [Vitamin E] 400 unit PO DAILY 07/10/16 [History] traZODone [TraZODone] 50 - 100 mg PO HS PRN 07/10/16 [History] Acetaminophen [Tylenol Arthritis] 1,300 mg PO Q8H PRN 05/21/17 [History] Aspirin Enteric Coated [Aspirin EC] 81 mg PO DAILY 05/21/17 [History] Fluticasone/Salmeterol [Advair 500-50 Diskus] 1 each IH BID 05/21/17 [History] Diltiazem CD (24hr) [Cardizem CD] 120 mg PO DAILY #30 cap.er.24h 05/26/17 [Rx] Lisinopril [Zestril] 20 mg PO DAILY tablet 05/26/17 [Rx] Apixaban [Eliquis] 5 mg PO BID #60 tablet 06/24/17 [Rx] Metoprolol XL (24 HR) Succ [Toprol Xl] 50 mg PO DAILY #30 tab.er.24h 01/29/18 [Rx] Metformin HCl [Fortamet] 500 mg PO DAILY 06/14/18 [History] levoFLOXacin [Levaquin] 500 mg PO DAILY #5 tablet 06/22/18 [Rx] predniSONE [PredniSONE] 40 mg PO DAILY #5 tablet 06/22/18 [Rx] Allergies/Adverse Reactions: Allergy/AdvReac Type Severity Reaction Status Date / Time Penicillins Allergy SWELLING Verified 06/21/18 13:49 Date of admission: 06/21/18 17:43 Primary care physician: Lula Miranda MD Discharging clinician: Nate Chavez Anticipated date of discharge: 06/22/18 - Constitutional Vitals: Temp Pulse Resp BP Pulse Ox 97.1 F L 84 18 141/96 97 06/22/18 08:53 06/22/18 08:53 06/22/18 08:53 06/22/18 08:53 06/22/18 08:53 General appearance: Present: A&O X 3 Exam: . - Respiratory Respiratory exam: Present: wheezes (Mild end expiratory) - Cardiovascular Cardiovascular exam: Present: irregular rhythm. Absent: gallop, rubs, systolic murmur, tachycardia - Patient Status Disposition: Home, Self-Care Condition: Fair Functional capacity at discharge: independent ambulation Overall status at discharge: patient is progressing back to baseline - Discharge Instructions Follow Up With: Lula Miranda MD [Primary Care Provider] - (1 week) Additional Instructions: Please follow-up with your primary care provider within one week. Please resume your home medications. Please take your steroid and antibiotic until complete. Please return for any new or worsening symptoms. - Diet and Activity Activity: other (Use CPAP at night) Diet: low salt diet
--- NOTE | 2018-06-23 08:24 | Electrocardiograph Report ---
[facility] Test Date: 2018-06-21 Pat Name: Maxim Lamb Department: [id number] Room: 2S8 Gender: M Candle Wrapper: : [id number] Requested By: Dannielle Burnham Order Number: [id number] Reading MD: Magdaleno Urbano Measurements Intervals [place] Rate: 95 P: [place]: QRS: 91 QRSD: 147 T: 44 QT: 382 QTc: 481 Interpretive Statements Atrial fibrillation Right bundle branch block Electronically Signed On 06-23-2018 8:23:03 EDT by Magdaleno Urbano
== END 2018-06-22 13:30 | disposition home or self-care (01) ==
LOC: 2SOUTHHOLD 13:14 → EMEROOARM 13:14 → SUATTDRO 17:43 → 2SOUTHHOLD 18:10
PROVIDERS: ADMIT Hospitalist; ATTEND Internal Medicine

== ENCOUNTER 2019-05-14 11:52 | Observation (INO) ==
[2019-05-14] MEDS ORDERED: Ipratropium/Albuterol Neb 3 ML IH ONE (12:18)
[2019-05-14] MEDS ORDERED: methylPREDNISolone 125 MG/2 ML VIAL IVP ONE (12:18)
[2019-05-14] MEDS ORDERED: Ipratropium/Albuterol Neb 3 ML ONE (12:19)
[2019-05-14 13:16] LABS: Basophils # 0.1 K/mcL (0.0-0.2); Basophils % 0.8 %; Eosinophils # 0.6 K/mcL (0.0-0.6); Eosinophils % 5.9 %; Hematocrit 47.3 % (37.5-50.1); Immature Granulocytes % 0.3 % (0-4); Lymphocytes # 2.3 K/mcL (0.6-4.6); Mean Corpuscular HGB Conc 33.8 g/dL (31.6-35.5); Mean Corpuscular Hemoglobin 31.3 pg (28.0-33.3); Mean Corpuscular Volume 92.4 fL (83.0-100.0); Mean Platelet Volume 10.6 fL (9.4-12.4); Neutrophils # 6.1 K/mcL (1.6-8.9); Platelet Count 216 K/mcL (140-400); Red Blood Count 5.12 M/mcL (4.19-5.50); Red Cell Distribution Width 12.4 % (11.5-14.5); White Blood Count 10.1 K/mcL (4.3-11.1)
[2019-05-14 13:34] LABS: BUN/Creatinine Ratio 19 (6-26); Blood Urea Nitrogen 14 mg/dL (8-23); Calcium 9.3 mg/dL (8.6-10.3); Carbon Dioxide 27 mEq/L (23-29); Chloride 100 mEq/L (98-107); Glucose 289 mg/dL (70-105); Osmolality,Calculated 291 (280-300); Potassium 4.2 mEq/L (3.5-5.1); Sodium 135 mEq/L (136-145); Troponin I < 0.03 ng/mL (< 0.04); eGFR For African Americans > 60 (> 60); eGFR For Non-African Americans > 60 (> 60)
[2019-05-14] MEDS ORDERED: Azithromycin 500 MG in 0.9 % Sodium Chloride 250 ML IVPB ONE (13:50)
[2019-05-14] MEDS ORDERED: levoFLOXacin 500 MG/100 ML 500 MG/100 ML BAG IVPB ONE (14:06)
[2019-05-14] MEDS ORDERED: Naloxone 0.4 MG/ML INJ IVP PRN (14:42)
[2019-05-14] MEDS ORDERED: Ipratropium/Albuterol Neb 3 ML IH PRN (14:46)
[2019-05-14] MEDS: Ipratropium/Albuterol Neb 3 ML IH SCH ×2 (16:09→21:37)
[2019-05-14] MEDS: Metoprolol XL (24 HR) Succ 50 MG TAB.ER.24H PO SCH (17:21)
[2019-05-14] MEDS: *HR* Metformin 500 MG TABLET PO SCH (17:21)
[2019-05-14] MEDS: DilTIAZem CD (24hr) 120 MG CAP.ER.24H PO SCH (17:21)
[2019-05-14] MEDS: MethylPREDNISolone 40 MG/ML VIAL IVP SCH (20:22)
[2019-05-14] MEDS: Apixaban 5 MG TABLET PO SCH (20:23)
[2019-05-14] MEDS: Fluticasone Propionate Nasal 50 MCG/SPRAY BOTTLE NS SCH (20:23)
[2019-05-14] MEDS: Budesonide/Formoterol 160/4.5 1 PUFF INH IH SCH (21:49)
[2019-05-15] MEDS: MethylPREDNISolone 40 MG/ML VIAL IVP SCH (03:56)
[2019-05-15] MEDS: Ipratropium/Albuterol Neb 3 ML IH SCH ×4 (04:02→22:09)
[2019-05-15] MEDS ORDERED: *HR* GlipiZIDE XL (24 HR) 2.5 MG TABLET PO SCH (08:00)
[2019-05-15] MEDS ORDERED: levoFLOXacin 750 MG/150 ML 750 MG/150 ML BAG IVPB SCH (09:00)
[2019-05-15] MEDS ORDERED: lisinopriL 20 MG TABLET PO SCH (09:00)
[2019-05-15] MEDS ORDERED: Furosemide 20 MG TABLET PO SCH (09:00)
[2019-05-15] MEDS: Budesonide/Formoterol 160/4.5 1 PUFF INH IH SCH ×2 (10:29→22:09)
[2019-05-15] MEDS: Apixaban 5 MG TABLET PO SCH ×2 (10:35→20:40)
[2019-05-15] MEDS: DilTIAZem CD (24hr) 120 MG CAP.ER.24H PO SCH (10:35)
[2019-05-15] MEDS: *HR* Metformin 500 MG TABLET PO SCH (10:35)
[2019-05-15] MEDS: Metoprolol XL (24 HR) Succ 50 MG TAB.ER.24H PO SCH (10:35)
[2019-05-15] MEDS: Fluticasone Propionate Nasal 50 MCG/SPRAY BOTTLE NS SCH ×2 (10:36→20:42)
[2019-05-15] MEDS ORDERED: Melatonin 3 MG TABLET PO PRN (18:05)
[2019-05-15] MEDS ORDERED: Melatonin 3 MG TABLET PO SCH (21:00)
[2019-05-16] MEDS: Ipratropium/Albuterol Neb 3 ML IH SCH (03:26)
[2019-05-16 07:04] VITALS: BP 111/71
[2019-05-16] MEDS ORDERED: predniSONE 20 MG TABLET PO SCH (09:00)
== END 2019-05-16 08:20 | disposition home or self-care (01) ==
LOC: EMEROOARM 11:52 → 3BNU 11:52 → SUATTDRO 14:41 → 3BNU 16:00
PROVIDERS: ADMIT Internal Medicine; ATTEND Internal Medicine

== ENCOUNTER 2019-08-15 11:24 | Observation (INO) ==
[2019-08-15] MEDS ORDERED: methylPREDNISolone 125 MG/2 ML VIAL IVP ONE (11:48)
[2019-08-15] MEDS ORDERED: cefTRIAXone 1,000 MG in Water for inj. (sterile) 10 ML IVP STA (11:51)
[2019-08-15] MEDS: Ipratropium/Albuterol Neb 3 ML IH SCH (12:13)
[2019-08-15 12:32] LABS: Basophils # 0.1 K/mcL (0.0-0.2); Basophils % 0.9 %; Eosinophils # 0.6 K/mcL (0.0-0.6); Eosinophils % 7.3 %; Hematocrit 43.1 % (37.5-50.1); Hemoglobin 14.3 g/dL (12.9-16.9); Immature Granulocytes % 0.4 % (0-4); Lymphocytes % 26.5 %; Mean Corpuscular HGB Conc 33.2 g/dL (31.6-35.5); Mean Corpuscular Volume 93.3 fL (83.0-100.0); Mean Platelet Volume 10.2 fL (9.4-12.4); Monocytes # 0.7 K/mcL (0.0-1.3); Monocytes % 9.7 %; Neutrophils # 4.2 K/mcL (1.6-8.9); Nucleated Red Blood Cells 0.3 /100 WBC (0); Platelet Count 200 K/mcL (140-400); Red Blood Count 4.62 M/mcL (4.19-5.50); Red Cell Distribution Width 13.4 % (11.5-14.5); Segmented Neutrophils % 55.2 %; White Blood Count 7.6 K/mcL (4.3-11.1)
[2019-08-15 12:57] LABS: BUN/Creatinine Ratio 18 (6-26); Blood Urea Nitrogen 13 mg/dL (8-23); Calcium 8.9 mg/dL (8.6-10.3); Carbon Dioxide 27 mEq/L (23-29); Chloride 101 mEq/L (98-107); Glucose 191 mg/dL (70-105); Osmolality,Calculated 287 (280-300); Potassium 3.9 mEq/L (3.5-5.1); Sodium 136 mEq/L (136-145); Troponin I < 0.03 ng/mL (< 0.04); eGFR For African Americans > 60 (> 60); eGFR For Non-African Americans > 60 (> 60)
[2019-08-15 13:35] LABS: Bilirubin,Urine Small (Negative); Blood,Urine Negative (Negative); Clarity,Urine Clear (Clear); Color,Urine Dark Yellow (Yellow); Glucose,Urine (UA) 100 mg/dL (Normal); Ketones,Urine Trace mg/dL (Negative); Leukocyte Esterase,Urine Small (Negative); Nitrite,Urine Negative (Negative); PH,Urine 5.5 pH Units (5.0-8.0); Protein,Urine Trace mg/dL (Neg-Trace); Specific Gravity,Urine > 1.030 (1.010-1.025); Urobilinogen,Urine Normal (Normal)
[2019-08-15 13:36] LABS: Bacteria,Urine None Seen per hpf (None-Few); Hyaline Casts,Urine None Seen per lpf (None-Few); Squamous Epithelial Cell,Urine Many per lpf (None-Few)
[2019-08-15] MEDS ORDERED: Naloxone 0.4 MG/ML INJ IVP PRN (14:18)
[2019-08-15] MEDS ORDERED: Nitroglycerin 0.4 MG TAB.SUBL SL PRN (14:28)
[2019-08-15 15:08] LABS: Magnesium 1.5 mg/dL (1.6-2.6)
[2019-08-15 15:44] VITALS: BP 153/102
[2019-08-15] MEDS ORDERED: *HR* Dextrose 50 % in Water (Syg) 50 ML SYRINGE IVP PRN (15:51)
[2019-08-15] MEDS ORDERED: D5% in Water 1,000 ML IVC PRN (15:51)
[2019-08-15] MEDS ORDERED: Dextrose Gel 15 GM/37.5 ML TUBE PO PRN ×2 (15:51)
[2019-08-15] MEDS ORDERED: MethylPREDNISolone 40 MG/ML VIAL IVP SCH (16:00)
[2019-08-15] MEDS ORDERED: Ipratropium 1 PUFF INHALER IH SCH (16:00)
[2019-08-15] MEDS ORDERED: Ipratropium/Albuterol Neb 3 ML IH SCH (16:00)
[2019-08-15] MEDS: Ipratropium 1 PUFF INHALER IH SCH ×2 (16:23→20:55)
[2019-08-15] MEDS ORDERED: Insulin LISPRO 300 UNITS/3 ML VIAL SQ SCH ×2 (17:00→21:00)
[2019-08-15] MEDS ORDERED: Azithromycin 500 MG in 0.9 % Sodium Chloride 250 ML IVPB SCH (17:00)
== END 2019-08-16 00:10 | disposition home or self-care (01) ==
LOC: EMEROOARM 11:24 → 3BNU 11:24 → 2NENU 15:02
PROVIDERS: ADMIT Student in an Organized Health Care Education/Training Program; ATTEND Student in an Organized Health Care Education/Training Program

== ENCOUNTER 2021-09-15 12:41 | Inpatient (IN) ==
[2021-09-15] MEDS ORDERED: Albuterol 2.5 MG/3 ML NEBULIZER IH ONE ×2 (12:50→14:23)
[2021-09-15] MEDS ORDERED: Ipratropium/Albuterol Neb 3 ML IH ONE (12:50)
[2021-09-15] MEDS ORDERED: methylPREDNISolone 125 MG/2 ML VIAL IVP ONE (12:50)
[2021-09-15 13:18] LABS: Hematocrit 41.6 % (37.5-50.1); Hemoglobin 13.5 g/dL (12.9-16.9); Immature Granulocytes % 0.4 % (0-4); Lymphocytes % 26.8 %; Mean Corpuscular HGB Conc 32.5 g/dL (31.6-35.5); Mean Corpuscular Hemoglobin 31.3 pg (28.0-33.3); Mean Corpuscular Volume 96.5 fL (83.0-100.0); Mean Platelet Volume 10.3 fL (9.4-12.4); Monocytes % 10.3 %; Platelet Count 227 K/mcL (140-400); Red Blood Count 4.31 M/mcL (4.19-5.50); Red Cell Distribution Width 13.8 % (11.5-14.5); Segmented Neutrophils % 55.3 %; White Blood Count 7.4 K/mcL (4.3-11.1)
[2021-09-15 13:19] LABS: Basophils # 0.1 K/mcL (0.0-0.2); Basophils % 0.8 %; Eosinophils # 0.5 K/mcL (0.0-0.6); Eosinophils % 6.4 %; Monocytes # 0.8 K/mcL (0.0-1.3); Neutrophils # 4.1 K/mcL (1.6-8.9)
[2021-09-15 13:39] LABS: VBG HCO3 31 mEq/L (21-27); VBG PCO2 64 mmHg (41-51); VBG PH 7.29 pH Units (7.32-7.42); VBG PO2 52 mmHg (25-50)
[2021-09-15 13:41] LABS: Alanine Aminotransferase 23 Units/L (7-52); Albumin/Globulin Ratio 1.5 (1.1-2.2); Alkaline Phosphatase 61 Units/L (34-104); Aspartate Amino Transferase 16 Units/L (13-39); BUN/Creatinine Ratio 18 (6-26); Bilirubin,Total 0.7 mg/dL (0.3-1.0); Blood Urea Nitrogen 14 mg/dL (8-23); Carbon Dioxide 31 mEq/L (23-29); Chloride 104 mEq/L (98-107); Globulin 2.7 g/dL (2.4-3.5); Glucose 148 mg/dL (70-105); Osmolality,Calculated 293 (280-300); Potassium 4.2 mEq/L (3.5-5.1); Sodium 140 mEq/L (136-145); Total Protein 6.7 g/dL (6.4-8.9); Troponin I < 0.03 ng/mL (< 0.04); eGFR For African Americans > 60 (> 60); eGFR For Non-African Americans > 60 (> 60)
[2021-09-15] MEDS ORDERED: Iopamidol - 370 500 ML MLS IVP ONE (14:22)
[2021-09-15] MEDS ORDERED: Ondansetron ODT 4 MG TAB.RAPDIS SL PRN (20:02)
[2021-09-15] MEDS ORDERED: Naloxone 0.4 MG/ML INJ IVP PRN (20:02)
[2021-09-15] MEDS ORDERED: Melatonin 3 MG TABLET PO PRN (20:02)
[2021-09-15] MEDS ORDERED: *HR* Dextrose 50 % in Water (Syg) 50 ML SYRINGE IVP PRN (20:04)
[2021-09-15] MEDS ORDERED: D5% in Water 1,000 ML IVC PRN (20:04)
[2021-09-15] MEDS ORDERED: Dextrose Gel 15 GM/37.5 ML TUBE PO PRN ×2 (20:04)
[2021-09-15] MEDS ORDERED: *HR* Heparin 5,000 UNIT/ML VIAL IVP PRN ×2 (20:06)
[2021-09-15] MEDS ORDERED: *HR* Heparin 5,000 UNIT/ML VIAL IVP ONE (20:06)
[2021-09-15] MEDS ORDERED: Heparin 25,000UNIT/250ML 1/2NS 25,000 UNIT/250 ML IV.SOLN IVC SCH (20:15)
[2021-09-15 20:34] LABS: Hemoglobin 13.8 g/dL (12.9-16.9); Mean Corpuscular HGB Conc 32.1 g/dL (31.6-35.5); Mean Corpuscular Hemoglobin 30.6 pg (28.0-33.3); Mean Corpuscular Volume 95.3 fL (83.0-100.0); Mean Platelet Volume 10.2 fL (9.4-12.4); Platelet Count 246 K/mcL (140-400); Red Blood Count 4.51 M/mcL (4.19-5.50); Red Cell Distribution Width 13.6 % (11.5-14.5); White Blood Count 7.5 K/mcL (4.3-11.1)
[2021-09-15 20:42] LABS: Heparin anti-factor XA UFH 0.68 IU/mL (0.30-0.70); INR 1.2; Prothrombin Time 13.8 Seconds (9.4-12.1)
[2021-09-15] MEDS: Insulin LISPRO 300 UNITS/3 ML VIAL SUBQ SCH (23:09)
[2021-09-15] MEDS: Heparin 25,000UNIT/250ML 1/2NS 25,000 UNIT/250 ML IV.SOLN IVC SCH (23:10)
[2021-09-16] MEDS: Ipratropium/Albuterol Neb 3 ML IH PRN (04:41)
[2021-09-16 06:24] LABS: Hematocrit 39.8 % (37.5-50.1); Hemoglobin 13.1 g/dL (12.9-16.9); Mean Corpuscular HGB Conc 32.9 g/dL (31.6-35.5); Mean Corpuscular Hemoglobin 31.3 pg (28.0-33.3); Mean Corpuscular Volume 95.2 fL (83.0-100.0); Mean Platelet Volume 10.5 fL (9.4-12.4); Platelet Count 249 K/mcL (140-400); Red Blood Count 4.18 M/mcL (4.19-5.50); Red Cell Distribution Width 13.6 % (11.5-14.5); White Blood Count 9.5 K/mcL (4.3-11.1)
[2021-09-16 06:47] LABS: BUN/Creatinine Ratio 23 (6-26); Blood Urea Nitrogen 17 mg/dL (8-23); Calcium 8.9 mg/dL (8.6-10.3); Carbon Dioxide 25 mEq/L (23-29); Chloride 103 mEq/L (98-107); Chol/HDL Ratio 2.4 (0-4.9); Cholesterol 134 mg/dL (< 200); Glucose 227 mg/dL (70-105); HDL Cholesterol 55 mg/dL (40-59); LDL Cholesterol,Calculated 68 mg/dL (< 100); Magnesium 1.7 mg/dL (1.6-2.6); Osmolality,Calculated 295 (280-300); Phosphorous 2.9 mg/dL (2.7-4.5); Sodium 138 mEq/L (136-145); Triglycerides 57 mg/dL (< 150); eGFR For African Americans > 60 (> 60); eGFR For Non-African Americans > 60 (> 60)
[2021-09-16] MEDS ORDERED: *HR* HYDROcodone/Acet 5/325 mg TABLET PO PRN (07:36)
[2021-09-16] MEDS ORDERED: Furosemide 20 MG TABLET PO SCH (09:00)
[2021-09-16] MEDS: DilTIAZem CD (24hr) 120 MG CAP.ER.24H PO SCH (09:19)
[2021-09-16] MEDS: Insulin LISPRO 300 UNITS/3 ML VIAL SUBQ SCH ×4 (09:19→21:48)
[2021-09-16] MEDS: Heparin 25,000UNIT/250ML 1/2NS 25,000 UNIT/250 ML IV.SOLN IVC SCH ×2 (09:27→12:01)
[2021-09-16] MEDS: Fluticasone Propionate Nasal 50 MCG/SPRAY BOTTLE NS SCH ×2 (12:02→23:12)
[2021-09-16] MEDS ORDERED: Acetaminophen 325 MG TABLET PO PRN (17:23)
[2021-09-16] MEDS ORDERED: traZODone 50 MG TABLET PO PRN (17:23)
[2021-09-16] MEDS ORDERED: Furosemide 20 MG/2 ML VIAL IVP SCH (21:00)
[2021-09-16] MEDS: Apixaban 5 MG TABLET PO SCH (21:48)
[2021-09-16] MEDS: Furosemide 20 MG/2 ML VIAL IVP SCH (21:49)
[2021-09-17 03:05] LABS: Hematocrit 39.7 % (37.5-50.1); Hemoglobin 12.9 g/dL (12.9-16.9)
[2021-09-17 03:10] LABS: BUN/Creatinine Ratio 28 (6-26); Blood Urea Nitrogen 23 mg/dL (8-23); Calcium 8.5 mg/dL (8.6-10.3); Carbon Dioxide 26 mEq/L (23-29); Chloride 104 mEq/L (98-107); Glucose 189 mg/dL (70-105); Magnesium 1.7 mg/dL (1.6-2.6); Osmolality,Calculated 295 (280-300); Phosphorous 3.3 mg/dL (2.7-4.5); Potassium 3.6 mEq/L (3.5-5.1); Sodium 138 mEq/L (136-145); eGFR For African Americans > 60 (> 60); eGFR For Non-African Americans > 60 (> 60)
[2021-09-17] MEDS: Insulin LISPRO 300 UNITS/3 ML VIAL SUBQ SCH ×4 (08:33→21:45)
[2021-09-17] MEDS: DilTIAZem CD (24hr) 120 MG CAP.ER.24H PO SCH (08:34)
[2021-09-17] MEDS: Metoprolol XL (24 HR) Succ 50 MG TAB.ER.24H PO SCH (08:34)
[2021-09-17] MEDS: Apixaban 5 MG TABLET PO SCH ×2 (08:35→21:45)
[2021-09-17] MEDS: Furosemide 20 MG/2 ML VIAL IVP SCH ×2 (08:35→17:17)
[2021-09-17] MEDS: Fluticasone Propionate Nasal 50 MCG/SPRAY BOTTLE NS SCH ×2 (08:42→21:46)
[2021-09-17] MEDS: Ipratropium/Albuterol Neb 3 ML IH PRN (16:38)
[2021-09-18 03:30] LABS: BUN/Creatinine Ratio 26 (6-26); Blood Urea Nitrogen 23 mg/dL (8-23); Calcium 9.3 mg/dL (8.6-10.3); Carbon Dioxide 31 mEq/L (23-29); Chloride 100 mEq/L (98-107); Glucose 190 mg/dL (70-105); Magnesium 1.6 mg/dL (1.6-2.6); Osmolality,Calculated 297 (280-300); Phosphorous 4.1 mg/dL (2.7-4.5); Potassium 3.7 mEq/L (3.5-5.1); Sodium 139 mEq/L (136-145); eGFR For African Americans > 60 (> 60); eGFR For Non-African Americans > 60 (> 60)
[2021-09-18] MEDS: Metoprolol XL (24 HR) Succ 50 MG TAB.ER.24H PO SCH (07:52)
[2021-09-18] MEDS: DilTIAZem CD (24hr) 120 MG CAP.ER.24H PO SCH (07:52)
[2021-09-18] MEDS: Insulin LISPRO 300 UNITS/3 ML VIAL SUBQ SCH ×3 (07:52→16:43)
[2021-09-18] MEDS: Apixaban 5 MG TABLET PO SCH (07:52)
[2021-09-18] MEDS: Furosemide 20 MG/2 ML VIAL IVP SCH (07:53)
[2021-09-18] MEDS: Fluticasone Propionate Nasal 50 MCG/SPRAY BOTTLE NS SCH (07:54)
[2021-09-18] MEDS ORDERED: Perflutren Lipid Microsphere 1.3 ML in 0.9 % Sodium Chloride 8.7 ML IVP PRN (11:48)
[2021-09-18] MEDS ORDERED: Ipratropium/Albuterol Neb 3 ML IH PRN (13:19)
[2021-09-18] MEDS ORDERED: Budesonide/Formoterol 160/4.5 1 PUFF INH IH SCH (13:30)
[2021-09-18 15:21] VITALS: BP 131/76; PULSE 72; TEMP 97.7; O2SAT 95
[2021-09-18] MEDS ORDERED: Ipratropium/Albuterol Neb 3 ML IH SCH (16:00)
== END 2021-09-18 17:27 | disposition home or self-care (01) | DRG 299 ==
LOC: 3BNU 12:41 → EMEROOARM 12:41 → SUATTDRO 20:23 → 4WAOSI 20:33 → SUATTDRO 09-16 11:07 → 3ANU 09-16 16:39
PROVIDERS: ADMIT Family Medicine; ATTEND Student in an Organized Health Care Education/Training Program

== ENCOUNTER 2021-12-04 08:09 | Observation (INO) ==
[2021-12-04 09:32] LABS: Basophils # 0.1 K/mcL (0.0-0.2); Basophils % 0.8 %; Eosinophils # 0.8 K/mcL (0.0-0.6); Eosinophils % 10.2 %; Hematocrit 41.7 % (37.5-50.1); Hemoglobin 13.5 g/dL (12.9-16.9); Immature Granulocytes % 0.4 % (0-4); Lymphocytes # 1.8 K/mcL (0.6-4.6); Lymphocytes % 23.4 %; Mean Corpuscular HGB Conc 32.4 g/dL (31.6-35.5); Mean Corpuscular Hemoglobin 30.5 pg (28.0-33.3); Mean Corpuscular Volume 94.1 fL (83.0-100.0); Mean Platelet Volume 10.4 fL (9.4-12.4); Monocytes # 0.9 K/mcL (0.0-1.3); Monocytes % 11.3 %; Neutrophils # 4.1 K/mcL (1.6-8.9); Platelet Count 220 K/mcL (140-400); Red Blood Count 4.43 M/mcL (4.19-5.50); Red Cell Distribution Width 13.2 % (11.5-14.5); Segmented Neutrophils % 53.9 %; White Blood Count 7.6 K/mcL (4.3-11.1)
[2021-12-04 09:51] LABS: BUN/Creatinine Ratio 15 (6-26); Blood Urea Nitrogen 14 mg/dL (8-23); Calcium 9.4 mg/dL (8.6-10.3); Carbon Dioxide 32 mEq/L (23-29); Chloride 101 mEq/L (98-107); Glucose 184 mg/dL (70-105); Osmolality,Calculated 293 (280-300); Potassium 3.9 mEq/L (3.5-5.1); Sodium 139 mEq/L (136-145); Troponin I < 0.03 ng/mL (< 0.04)
[2021-12-04 10:01] LABS: INR 1.3; Prothrombin Time 14.9 Seconds (9.4-12.1)
[2021-12-04 10:20] LABS: Influenza A PCR Negative (Negative); Influenza B PCR Negative (Negative); Resp. Syncytial Virus PCR Negative (Negative)
[2021-12-04 10:46] LABS: SARS-CoV-2 by PCR (In House) Negative (Negative)
[2021-12-04 10:59] LABS: VBG HCO3 30 mEq/L (21-27); VBG PCO2 57 mmHg (41-51); VBG PH 7.33 pH Units (7.32-7.42); VBG PO2 64 mmHg (25-50)
[2021-12-04] MEDS ORDERED: predniSONE 20 MG TABLET PO ONE (11:06)
[2021-12-04] MEDS ORDERED: Ipratropium/Albuterol Neb 3 ML IH ONE (11:06)
[2021-12-04] MEDS: Ipratropium/Albuterol Neb 3 ML IH SCH (13:37)
[2021-12-04] MEDS ORDERED: Naloxone 0.4 MG/ML INJ IVP PRN (16:18)
[2021-12-04] MEDS ORDERED: Ondansetron ODT 4 MG TAB.RAPDIS SL PRN (16:18)
[2021-12-04] MEDS ORDERED: Azithromycin 500 MG in 0.9 % Sodium Chloride 250 ML IVPB SCH (17:00)
[2021-12-04] MEDS: Tiotropium 10 INH DOSE IH SCH (18:50)
[2021-12-04] MEDS: Ipratropium/Albuterol Neb 3 ML IH PRN (18:53)
[2021-12-04] MEDS ORDERED: D5% in Water 1,000 ML IVC PRN (19:56)
[2021-12-04] MEDS ORDERED: *HR* Dextrose 50 % in Water (Syg) 50 ML SYRINGE IVP PRN (19:56)
[2021-12-04] MEDS ORDERED: Dextrose Gel 15 GM/37.5 ML TUBE PO PRN ×2 (19:56)
[2021-12-04] MEDS: Budesonide/Formoterol 160/4.5 1 PUFF INH IH SCH (20:03)
[2021-12-04] MEDS ORDERED: Insulin LISPRO 300 UNITS/3 ML VIAL SUBQ SCH (21:00)
[2021-12-04 21:47] LABS: Estimated Average Glucose 151 mg/dl; Hemoglobin A1C 6.9 %
[2021-12-05] MEDS: Ipratropium/Albuterol Neb 3 ML IH PRN (01:06)
[2021-12-05 05:02] LABS: Hematocrit 38.5 % (37.5-50.1); Hemoglobin 12.3 g/dL (12.9-16.9); Mean Corpuscular HGB Conc 31.9 g/dL (31.6-35.5); Mean Corpuscular Hemoglobin 29.7 pg (28.0-33.3); Mean Platelet Volume 10.9 fL (9.4-12.4); Platelet Count 205 K/mcL (140-400); Red Blood Count 4.14 M/mcL (4.19-5.50); Red Cell Distribution Width 13.3 % (11.5-14.5); White Blood Count 9.4 K/mcL (4.3-11.1)
[2021-12-05 05:23] LABS: BUN/Creatinine Ratio 20 (6-26); Blood Urea Nitrogen 15 mg/dL (8-23); Calcium 8.9 mg/dL (8.6-10.3); Carbon Dioxide 27 mEq/L (23-29); Chloride 104 mEq/L (98-107); Chol/HDL Ratio 2.1 (0-4.9); Cholesterol 113 mg/dL (< 200); Glucose 114 mg/dL (70-105); HDL Cholesterol 53 mg/dL (40-59); LDL Cholesterol,Calculated 46 mg/dL (< 100); Magnesium 1.8 mg/dL (1.6-2.6); Osmolality,Calculated 288 (280-300); Potassium 3.8 mEq/L (3.5-5.1); Sodium 138 mEq/L (136-145); Triglycerides 72 mg/dL (< 150)
[2021-12-05 06:40] VITALS: BP 125/83; PULSE 79; TEMP 97.9
[2021-12-05] MEDS ORDERED: Insulin LISPRO 300 UNITS/3 ML VIAL SUBQ SCH (07:30)
[2021-12-05] MEDS: Tiotropium 10 INH DOSE IH SCH (07:46)
[2021-12-05] MEDS: Budesonide/Formoterol 160/4.5 1 PUFF INH IH SCH (07:47)
[2021-12-05 07:50] VITALS: O2SAT 96
[2021-12-05] MEDS ORDERED: predniSONE 20 MG TABLET PO SCH (09:00)
[2021-12-05] MEDS ORDERED: Furosemide 20 MG TABLET PO SCH (09:15)
[2021-12-05] MEDS ORDERED: Apixaban 5 MG TABLET PO SCH (09:15)
[2021-12-05] MEDS ORDERED: Flu Vac QV 22-23 (6MOS UP)/PF 0.5 ML SYRINGE IM ONE (10:49)
== END 2021-12-05 11:39 | disposition home or self-care (01) ==
LOC: EMEROOARM 08:09 → 3ANU 08:09
PROVIDERS: ADMIT Internal Medicine; ATTEND Internal Medicine